=== PATIENT | female | born 1960 | race Caucasian/White ===

== ENCOUNTER → 2021-01-28 11:58 | Outpatient (CLI) | payer OTHER, MEDICAID, SELFPAY ==
[2021-01-28 12:32] LABS: Add Manual Diff / Slide Review NO; Basophils Absolute Auto 0 /uL (0-100); Basophils Percent Auto 0.8 % (0-2); Eosinophils Absolute Auto 100 /uL (0-450); Eosinophils Percent Auto 1.9 % (2-4); Hematocrit 41.1 % (36-46); Hemoglobin 13.9 g/dL (12.0-16.0); Lymphocytes Absolute Auto 1900 /uL (1100-4500); Lymphocytes Percent Auto 35.9 % (25-40); Mean Corpuscular HGB Conc 33.8 % (30-36); Mean Corpuscular Hemoglobin 32.5 PG (26-34); Monocytes Absolute Auto 300 /uL (0-900); Monocytes Percent Auto 6.4 % (3-14); Neutrophils Absolute Auto 2900 /uL (1500-7000); Platelet Count 226 X10^3/uL (150-400); Red Blood Cell Count 4.29 X10^6/uL (4.0-5.2); Red Cell Distribution Width 12.8 % (11.6-14.8); White Blood Cell Count 5.3 X10^3/uL (4.5-11.0)
[2021-01-28 13:05] LABS: Alanine Aminotransferase 19 IU/L (<35); Albumin 4.1 g/dL (3.5-5.0); Albumin Globulin Ratio 1.6 (1.0-2.8); Alkaline Phosphatase 82 U/L (38-126); Aspartate Aminotransferase 23 IU/L (14-36); BUN Creatinine Ratio 18.1 (6-22); Bilirubin Total 0.2 mg/dL (0.2-1.3); Blood Urea Nitrogen 13 mg/dL (7-17); Calcium 9.9 mg/dL (8.4-10.2); Carbon Dioxide 28 mmol/L (22-32); Chloride 104 mmol/L (98-107); Estimated Glomerular Filt Rate > 60.0 mL/min (>60); Globulin 2.5 g/dL (1.7-4.1); Glucose 90 mg/dL (70-100); HEMOLYSIS < 15 (0-50); Potassium 3.9 mmol/L (3.4-5.1); Sodium 137 mmol/L (137-145); Total Protein 6.6 g/dL (6.3-8.2)
[2021-01-28 17:39] LABS: Free T4, Direct Thyroxine 0.83 ng/dL (0.78-2.19)
[2021-01-28 17:53] LABS: Thyroid Stimulating Hormone 1.28 uIU/mL (0.47-4.68)
== END ==
PROVIDERS: PCP Registered Nurse; Referring Provider Registered Nurse; Visit Provider Registered Nurse
DX: F41.8 Other specified anxiety disorders (principal); R01.1 Cardiac murmur, unspecified; M79.7 Fibromyalgia
CPT/HCPCS: 36415; 80053; 84439; 84443; 85025

== ENCOUNTER → 2021-03-04 11:26 | Outpatient (CLI) | payer OTHER, MEDICAID, SELFPAY ==
[2021-03-04 13:00] LABS: Vitamin D 25 Hydroxy (D3) 45.4 ng/mL (30.0-100.0)
== END ==
PROVIDERS: PCP Registered Nurse; Referring Provider Registered Nurse; Visit Provider Registered Nurse
DX: Z79.899 Other long term (current) drug therapy (principal)
CPT/HCPCS: 36415; 82306

== ENCOUNTER 2021-05-03 10:15 | Emergency (ER) | payer OTHER, MEDICAID, SELFPAY ==
[2021-05-03] VITALS (9 sets, daily range): BP systolic 144–176; BP diastolic 67–79; PULSE 47–54; RESP 7–34; TEMP 36.2; O2SAT 98–99
--- NOTE | 2021-05-03 10:32 | DI.RAD.S_ITS ---
PROCEDURE: XR CHEST 1V INDICATIONS: chest pain TECHNIQUE: One view of the chest was acquired. COMPARISON: None. FINDINGS: Surgical changes and devices: None. Lungs and pleura: Lungs are clear. No pleural effusions or pneumothorax. Mediastinum: Mediastinal contours appear normal. Heart size is normal. Bones and chest wall: No suspicious bony lesions. Overlying soft tissues appear unremarkable. Surgical clips noted in the right axilla IMPRESSION: No acute cardiopulmonary findings Approved by: Nigel Guardado M.D. on 05/03/2021 at 10:25
--- NOTE | 2021-05-03 10:50 | DI.CT.S_ITS ---
PROCEDURE: CT HEAD/BRAIN WO CON INDICATIONS: SMART, confusion, occ vision loss, remote h/o breast CA TECHNIQUE: Noncontrast 4.5 mm thick angled axial sections acquired from the foramen magnum to the vertex, with coronal and sagittal reformats. For radiation dose reduction, the following was used: automated exposure control, adjustment of mA and/or kV according to patient size. COMPARISON: None. FINDINGS: Image quality: Excellent. CSF spaces: Basal cisterns are patent. No extra-axial fluid collections. Ventricles are normal in size and shape. Brain: No midline shift. No intracranial masses or hemorrhage. Orourke-white matter interface is normal. Skull and face: Calvarium and visualized facial bones are intact, without suspicious lesions. Sinuses: Visualized sinuses and mastoids are clear. IMPRESSION: Unremarkable CT brain. No intracranial hemorrhage or mass effect Approved by: Nigel Guardado M.D. on 05/03/2021 at 9:56
[2021-05-03 11:17] LABS: Add Manual Diff / Slide Review NO; Basophils Absolute Auto 0 /uL (0-100); Basophils Percent Auto 0.8 % (0-2); Eosinophils Absolute Auto 100 /uL (0-450); Hematocrit 42.9 % (36-46); Hemoglobin 14.4 g/dL (12.0-16.0); Lymphocytes Absolute Auto 2100 /uL (1100-4500); Lymphocytes Percent Auto 38.2 % (25-40); Mean Corpuscular HGB Conc 33.5 % (30-36); Mean Corpuscular Hemoglobin 31.8 PG (26-34); Mean Corpuscular Volume 94.8 fL (80-100); Monocytes Absolute Auto 300 /uL (0-900); Monocytes Percent Auto 5.2 % (3-14); Neutrophils Absolute Auto 2900 /uL (1500-7000); Neutrophils Percent Auto 53.8 % (50-75); Platelet Count 199 X10^3/uL (150-400); Red Blood Cell Count 4.53 X10^6/uL (4.0-5.2); Red Cell Distribution Width 13.5 % (11.6-14.8); White Blood Cell Count 5.4 X10^3/uL (4.5-11.0)
--- NOTE | 2021-05-03 11:22 | ED.NEUROSD ---
HPI - Neuro Symptoms/Deficit General Chief Complaint: Neuro Symptoms/Deficit Stated Complaint: confusion/headache/nausea/1 week Time Seen by Provider: 05/03/21 11:22 Source: patient Mode of arrival: Wheelchair Limitations: no limitations History of Present Illness HPI Narrative: 60-year-old female who is here for evaluation of multiple symptoms to include occasional confusion, headache, nausea, abdominal pain, periods of a low heart rate, periods of a high heart rate. She states the symptoms have been going on for the past 2 weeks. She states she did mention anything about them the 1st week because she thought that they would improve on their own. She did go to an outside facility yesterday his she was having some chest discomfort. I was able to review those notes and she was discharged home after a cardiac workup. She states she is feeling very fatigued. Has not tried anything for her symptoms prior to arrival. On Anticoagulants: No (ASA 81 mg daily) Related Data Home Medications Medication Instructions Recorded Confirmed atorvastatin 80 mg tablet 80 mg PO BEDTIME 01/28/21 03/04/21 cholecalciferol (vitamin D3) 1,250 1,250 mcg PO QWEEK 01/28/21 03/04/21 mcg (50,000 unit) capsule losartan 50 mg tablet 50 mg PO BID 01/28/21 03/04/21 Previous Rx's Medication Instructions Recorded atenolol 50 mg tablet 50 mg PO DAILY #90 tab 03/03/21 duloxetine 20 mg capsule,delayed 20 mg PO BID #180 cap 03/03/21 release trazodone 100 mg tablet 200 mg PO BEDTIME 90 Days #180 tab 03/03/21 hydrochlorothiazide 25 mg tablet 25 mg PO DAILY #90 tab 04/07/21 bupropion HCl 150 mg tablet,12 hr 150 mg PO QAM #90 ea 04/08/21 sustained-release gabapentin 300 mg capsule 300 mg PO DAILY #30 cap 04/23/21 Allergies Allergy/AdvReac Type Severity Reaction Status Date / Time aspartame Allergy Severe numbness Verified 05/03/21 10:31 in mouth & throat from nutrisweet codeine Allergy Severe HIVES Verified 05/03/21 10:31 ergotamine [From Ergostat] Allergy Unknown Verified 05/03/21 10:31 oxycodone Allergy Unknown Verified 05/03/21 10:31 Review of Systems Constitutional Constitutional: Reports fatigue, Reports headache(s), Reports lethargy and Reports malaise Eyes Eyes: Reports system reviewed and no additional complaints, except as documented ENT Ears, Nose, Mouth, and Throat: Reports headache(s) Cardiovascular Cardiovascular: Reports chest pain and Reports dyspnea Respiratory Respiratory: Reports dyspnea Gastrointestinal Gastrointestinal: Reports abdominal pain, Reports nausea and Reports vomiting Genitourinary Genitourinary: Reports system reviewed and no additional complaints, except as documented Musculoskeletal Musculoskeletal: Reports as per HPI Integumentary/Breasts Skin/Breast: Reports system reviewed and no additional complaints, except as documented Neurologic Neurologic: Reports headache(s) Psychiatric Comments: Anxiety/fatigued Endocrine Endocrine: Reports fatigue Hematologic/Lymphatic On Anticoagulants: No (ASA 81 mg daily) Allergic/Immunologic Allergic/Immunologic: Reports system reviewed and no additional complaints, except as documented Patient History Medical History Anxiety with depression Carpal tunnel syndrome (~1995) Cervical cancer screening Chicken pox (~1968) Chronic back pain Chronic pain syndrome (09/24/15) Colon polyps Cyst Heart murmur Hemorrhoid History of bipolar disorder History of breast cancer (~2005) Hypertension (~1989) Kidney stones (~2014) Medication management Menopause (~1997) PTSD (post-traumatic stress disorder) Right shoulder pain (~2020) Skin cyst Stroke Substance abuse Vertigo Surgical History Anesthesia H/O right wrist surgery (~1984) History of back surgery (~2018) History of colonoscopy (~2020) History of coronary artery stent placement (~2019) History of hemorrhoidectomy (~1989) History of placement of ear tubes Family History Mother Cancer Diabetes mellitus History of heart disease Brother Diabetes mellitus Hyperlipidemia Hypertension Pacemaker Sister Diabetes mellitus Hypertension Sister Hyperlipidemia Liver disease Autoimmune disease Grandfather Cancer Grandfather Alzheimer's disease Grandmother Alzheimer's disease Social History Smoking Status: Current every day smoker Smoking Status: Current every day smoker tobacco type: cigarettes alcohol intake frequency: 0-2 drinks per day Substance Use Type: marijuana Exam Initial Vital Signs Initial Vital Signs: Vital Signs Temperature 97.2 F L 05/03/21 10:25 Pulse Rate 54 L 05/03/21 10:25 Respiratory Rate 18 05/03/21 10:25 Blood Pressure 146/79 H 05/03/21 10:25 Pulse Oximetry 99 05/03/21 10:25 Const General: cooperative, comfortable and well developed [facility] Head: normal to inspection and normocephalic Eyes General: appearance normal, both eyes and all related structures Resp Effort & Inspection: normal respiratory effort Auscultation: clear to auscultation bilaterally Cardio Rate: regular rate Rhythm: regular rhythm GI Inspection: normal to inspection Palpation: soft Skin General: no rashes or lesions noted Neuro General: patient alert, patient awake, patient oriented x3 and moves all extremities Cognition: normal cognition Speech: speech normal Gait: normal gait Motor: muscle tone normal throughout Extrem General: normal to inspection and capillary refill normal Psych Appearance: grossly normal and well kempt Scores GCS [place] coma scale eye opening: Spontaneous Loi coma scale verbal response: Orientated Loi coma scale motor response: Obey commands Loi coma scale total score: 15 Course Orders Ordered: ED Orders 05/03/21 10:32 XR chest 1V Stat EKG-12 Lead Stat 05/03/21 10:50 CT head/brain wo con Stat 05/03/21 11:07 Complete Blood Count AUTO DIFF Stat Comprehensive Metabolic Panel Stat Lipase Stat Magnesium Stat TSH w/ Reflex to FT4 Stat Troponin & CK Cardiac Panel Stat Vital Signs Vital signs: Vital Signs - 8 hr 05/03/21 10:25 05/03/21 10:53 05/03/21 10:54 Temperature 97.2 F L Pulse Rate 54 L 48 L 47 L Respiratory Rate 18 12 7 L Blood Pressure 146/79 H 163/77 H Pulse Oximetry 99 99 99 05/03/21 11:00 05/03/21 11:18 05/03/21 11:30 Temperature Pulse Rate 49 L 52 L 53 L Respiratory Rate 13 34 H 25 H Blood Pressure 176/73 H Pulse Oximetry 98 98 99 05/03/21 11:31 Temperature Pulse Rate 54 L Respiratory Rate 21 Blood Pressure 159/74 H Pulse Oximetry 99 MDM - Neuro Symptoms/Deficit Medical Records Attestation: I reviewed the patient's medical records. Lab Data Attestation: I reviewed the patient's lab results. Result diagrams: 05/03/21 11:07 05/03/21 11:07 Labs: Lab Results 05/03/21 05/03/21 05/03/21 Range/Units 11:07 11:07 11:07 WBC 5.4 (4.5-11.0) X10^3/uL RBC 4.53 (4.0-5.2) X10^6/uL Hgb 14.4 (12.0-16.0) g/dL Hct 42.9 (36-46) % MCV 94.8 (80-100) fL MCH 31.8 (26-34) PG MCHC 33.5 (30-36) % RDW 13.5 (11.6-14.8) % Plt Count 199 (150-400) X10^3/uL Neut % (Auto) 53.8 (50-75) % Lymph % (Auto) 38.2 (25-40) % [place] % (Auto) 5.2 (3-14) % Eos % (Auto) 2.0 (2-4) % Baso % (Auto) 0.8 (0-2) % Neut # (Auto) 2900 (7263-7218) /uL Lymph # (Auto) 2100 (6452-5133) /uL [place] # (Auto) 300 (0-900) /uL Eos # (Auto) 100 (0-450) /uL Baso # (Auto) 0 (0-100) /uL Sodium 139 (137-145) mmol/L Potassium 3.7 (3.4-5.1) mmol/L Chloride 108 H (98-107) mmol/L Carbon Dioxide 27 (22-32) mmol/L BUN 14 (7-17) mg/dL Creatinine 0.88 (0.52-1.04) mg/dL Estimated GFR > 60.0 (>60) mL/min BUN/Creatinine Ratio 15.9 (6-22) Glucose 86 (70-100) mg/dL Calcium 10.1 (8.4-10.2) mg/dL Magnesium 1.9 (1.6-2.3) mg/dL Total Bilirubin 0.4 (0.2-1.3) mg/dL AST 30 (14-36) IU/L ALT 24 (<35) IU/L Alkaline Phosphatase 70 (38-126) U/L Total Creatine Kinase 68 (30-135) U/L CK-MB (CK-2) TNP CK-MB (CK-2) Rel Index TNP Troponin I < 0.012 (0.01-0.034) ng/mL Total Protein 7.0 (6.3-8.2) g/dL Albumin 4.1 (3.5-5.0) g/dL Globulin 2.9 (1.7-4.1) g/dL Albumin/Globulin Ratio 1.4 (1.0-2.8) Lipase 119 (23-300) U/L TSH 1.33 (0.47-4.68) uIU/mL Imaging Data CT scan - head: Radiologist's Impression: [address] [id number] Scan ReportSigned Patient: Prem Rios AMR#: [id number]: 1960cct:[id number]/Sex: 60 / FDate of Service: 05/03/21Loc: EDAccession Number: [id number] Procedure: CT head/brain wo con Ordering Provider: Julien Rush D.O. PROCEDURE: CT HEAD/BRAIN WO CON INDICATIONS: SMART, confusion, occ vision loss, remote h/o breast CA TECHNIQUE: Noncontrast 4.5 mm thick angled axial sections acquired from the foramen magnum to the vertex, with coronal and sagittal reformats. For radiation dose reduction, the following was used: automated exposure control, adjustment of mA and/or kV according to patient size. COMPARISON: None. FINDINGS: Image quality: Excellent. CSF spaces: Basal cisterns are patent. No extra-axial fluid collections. Ventricles are normal in size and shape. Brain: No midline shift. No intracranial masses or hemorrhage. Orourke-white matter interface is normal. Skull and face: Calvarium and visualized facial bones are intact, without suspicious lesions. Sinuses: Visualized sinuses and mastoids are clear. IMPRESSION: Unremarkable CT brain. No intracranial hemorrhage or mass effect Approved by: Nigel Guardado M.D. on 05/03/2021 at 9:56 Chest x-ray: Radiologist's Impression: [address] [id number] ReportSigned Patient: Prem Rios AMR#: [id number]: 1960cct:[id number]/Sex: 60 / FDate of Service: 05/03/21Loc: EDAccession Number: [id number] Procedure: XR chest 1V Ordering Provider: Julien Rush D.O. PROCEDURE: XR CHEST 1V INDICATIONS: chest pain TECHNIQUE: One view of the chest was acquired. COMPARISON: None. FINDINGS: Surgical changes and devices: None. Lungs and pleura: Lungs are clear. No pleural effusions or pneumothorax. Mediastinum: Mediastinal contours appear normal. Heart size is normal. Bones and chest wall: No suspicious bony lesions. Overlying soft tissues appear unremarkable. Surgical clips noted in the right axilla IMPRESSION: No acute cardiopulmonary findings Approved by: Nigel Guardado M.D. on 05/03/2021 at 10:25 ECG Data Attestation: I personally reviewed and interpreted this ECG as follows: Prior ECG tracings: available for review Interpretation: Sinus bradycardia Ventricular rate of 51 Normal axis Normal QRS Normal QTC Right bundle branch block No ST T wave changes MDM Narrative Medical decision making narrative: Workup here in the emergency department is very reassuring. I was able to review the notes from yesterday and that was reassuring as well. I do suspect that this is either a mental health/anxiety issue or potentially a medication issue. She is on multiple medications that could potentially causing her to be fatigued. I informed her that she needed to contact her primary doctor for follow-up in to go over her medications. She was given return precautions. She expressed understanding and agreement. Discharge Plan Departure Patient Disposition: Home Clinical Impression: Fatigue Instructions: DI for Fatigue Activity Restrictions/Additional Instructions: I do recommend that you contact your primary doctor for follow-up in to discuss potentially changing any medications that may be causing your symptoms. Return to the emergency department for any new or worsening symptoms Prescriptions: No Action trazodone 100 mg tablet 200 mg PO BEDTIME 90 Days Qty: 180 RF: 0 duloxetine 20 mg capsule,delayed release(DR/EC) 20 mg PO BID Qty: 180 RF: 0 atenolol 50 mg tablet 50 mg PO DAILY Qty: 90 RF: 0 hydrochlorothiazide 25 mg tablet 25 mg PO DAILY Qty: 90 RF: 2 bupropion HCl 150 mg tablet sustained-release 12 hr 150 mg PO QAM Qty: 90 RF: 2 gabapentin 300 mg capsule 300 mg PO DAILY Qty: 30 RF: 2 atorvastatin 80 mg tablet 80 mg PO BEDTIME RF: 0 losartan 50 mg tablet 50 mg PO BID RF: 0 cholecalciferol (vitamin D3) 1,250 mcg (50,000 unit) capsule 1,250 mcg PO QWEEK RF: 0 Referrals: Nereyda Fernandez ARNP [Primary Care Provider] -
[2021-05-03 11:32] LABS: Alanine Aminotransferase 24 IU/L (<35); Albumin 4.1 g/dL (3.5-5.0); Albumin Globulin Ratio 1.4 (1.0-2.8); Alkaline Phosphatase 70 U/L (38-126); Aspartate Aminotransferase 30 IU/L (14-36); BUN Creatinine Ratio 15.9 (6-22); Bilirubin Total 0.4 mg/dL (0.2-1.3); Blood Urea Nitrogen 14 mg/dL (7-17); Calcium 10.1 mg/dL (8.4-10.2); Carbon Dioxide 27 mmol/L (22-32); Chloride 108 mmol/L (98-107); Creatine Kinase 68 U/L (30-135); Estimated Glomerular Filt Rate > 60.0 mL/min (>60); Globulin 2.9 g/dL (1.7-4.1); Glucose 86 mg/dL (70-100); HEMOLYSIS 22 (0-50); Lipase 119 U/L (23-300); Magnesium 1.9 mg/dL (1.6-2.3); Potassium 3.7 mmol/L (3.4-5.1); Sodium 139 mmol/L (137-145)
[2021-05-03 11:42] LABS: Troponin I < 0.012 ng/mL (0.01-0.034)
[2021-05-03 12:12] LABS: TSH w/ Reflex to FT4 1.33 uIU/mL (0.47-4.68)
[2021-05-03] MEDS: KETOROLAC 30 MG/ML VIAL IV (12:39)
== END 2021-05-03 13:12 | disposition home or self-care (01) ==
PROVIDERS: Emergency Provider Emergency Medicine; PCP Registered Nurse
DX: R53.83 Other fatigue (principal); R07.9 Chest pain, unspecified; R06.00 Dyspnea, unspecified; R51.9 Headache, unspecified
CPT/HCPCS: 36415; 70450; 71045; 80053; 82550; 83690; 83735; 84443; 84484; 85025; 93005; 93010; 96374; 99284; J1885

== ENCOUNTER → 2021-06-25 12:28 | Outpatient (CLI) | payer OTHER, MEDICAID, SELFPAY ==
--- NOTE | 2021-06-25 12:29 | DI.MG.S_ITS ---
BILATERAL DIGITAL DIAGNOSTIC MAMMOGRAM 3D/2D: 06/25/2021 CLINICAL: Diffuse right breast pain. History of right breast cancer. Comparison is made to exams dated: 01/01/2019 mammogram and 12/21/2016 mammogram - [facility]. There are scattered fibroglandular elements in both breasts. There are stable benign post operative findings in the right breast. No significant masses, calcifications, or other findings are seen in either breast. IMPRESSION: BENIGN There is no abnormality seen in the left breast to correspond with the diffuse pain, however, clinical followup is recommended. There is no mammographic evidence of malignancy. A 1 year screening mammogram is recommended. This exam was interpreted at Station ID: [id number]. NOTE: For mammograms, a report in lay terms will be sent to the patient. Approximately 15% of breast malignancies will not be visualized mammographically. In the management of a palpable breast mass, a negative mammogram must not discourage biopsy of a clinically suspicious lesion. Electronically Signed By: Xavier keller/blaine:06/25/2021 13:21:46 letter sent: Clinical Evaluation ACR BI-RADS Category 2: Benign Finding(s) 3342F
== END ==
PROVIDERS: PCP Registered Nurse; Referring Provider Registered Nurse; Visit Provider Registered Nurse
DX: N64.4 Mastodynia (principal); Z85.3 Personal history of malignant neoplasm of breast
CPT/HCPCS: 77066; G0279

== ENCOUNTER → 2021-12-22 11:29 | Outpatient (CLI) | payer OTHER, MEDICAID, SELFPAY ==
--- NOTE | 2021-12-22 11:31 | DI.RAD.S_ITS ---
PROCEDURE: XR SHOULDER LT MIN 2V INDICATIONS: neck and L shoulder pain, raadicular with numbness also down TECHNIQUE: 3 views of the shoulder were acquired. COMPARISON: None. FINDINGS: Bones: No acute fracture or dislocation. Moderate degenerative changes of the glenohumeral joint with marginal osteophytes over the inferomedial margin of the left humeral head. Corticated ossifications noted in the subacromial space underlying the level of the distal clavicle. Largest measures approximately 1.1 cm in size. Minimal degenerative changes of the left acromioclavicular joint. Soft tissues: No suspicious soft tissue calcifications. Visualized portions of the lungs are clear. IMPRESSION: 1. Moderate degenerative changes of the left glenohumeral joint. 2. Chronic appearing, corticated ossifications noted in the subacromial space likely representing sequela of chronic calcific rotator cuff tendinopathy. 3. Minimal degenerative changes of the left acromioclavicular joint. 4. No acute osseous abnormalities identified. Dictated by: Zain Velazquez M.D. on 12/22/2021 at 12:26 Approved by: Zain Velaqzuez M.D. on 12/22/2021 at 12:29
--- NOTE | 2021-12-22 11:31 | DI.RAD.S_ITS ---
PROCEDURE: XR CERVICAL SPINE 2V OR 3V INDICATIONS: neck pain TECHNIQUE: 3 view(s) of the cervical spine were acquired. COMPARISON: None. FINDINGS: Bones: No fractures or dislocations to the T1 level. Loss of normal cervical lordosis. Mild grade 1 anterolisthesis of C2 on C3 and C3 on C4. Disc space narrowing and endplate osteophyte formation at C4-C5, C5-C6, and C6-C7. Facet hypertrophy throughout the mid and lower cervical spine. The lateral masses of C1 appear intact on the odontoid view. No suspicious bony lesions. Soft tissues: No prevertebral soft tissue swelling. IMPRESSION: 1. Multilevel degenerative disc and facet disease. 2. No acute fracture. No osseous lesion. If symptoms and/or clinical suspicion for pathology persist, further assessment with repeat, or advanced imaging (e.g., CT, MRI, or bone scan) may be helpful for further assessment. Dictated by: Delmi Mendez M.D. on 12/22/2021 at 13:59 Approved by: Delmi Mendez M.D. on 12/22/2021 at 14:00
== END ==
PROVIDERS: PCP Family Medicine; Referring Provider Family Medicine; Visit Provider Family Medicine
DX: M50.321 Other cervical disc degeneration at C4-C5 level (principal); M25.512 Pain in left shoulder; G89.29 Other chronic pain
CPT/HCPCS: 72040; 73030

== ENCOUNTER → 2022-02-10 10:26 | Outpatient (CLI) | payer OTHER, MEDICAID, SELFPAY ==
--- NOTE | 2022-02-10 10:28 | DI.MRI.S_ITS ---
PROCEDURE: MR CERVICAL SPINE WO CON INDICATIONS: continued neck pain TECHNIQUE: Noncontrast sagittal T1 spin echo and T2 fast spin echo, sagittal STIR, foraminal oblique sagittal T2 fast spin echo, and axial gradient echo or T2 fast spin echo through the cervical spine. COMPARISON: [facility], CR, XR CERVICAL SPINE 2V OR 3V, 12/22/2021, 11:24. FINDINGS: Image quality: This examination is limited by involuntary motion artifact. Alignment and Curvature: There is straightening of the normal cervical lordosis. No focal AP alignment abnormality is seen. Bone Marrow: Marrow demonstrates normal overall signal. Spinal Cord: Visualized spinal cord has normal size and signal. No cerebellar tonsillar herniation. Paraspinous Soft Tissues: No paravertebral masses. Prevertebral soft tissues are normal in thickness. C2-C3: The disc height is well-preserved. Loss of disc signal is seen at this level. A mild degree of generalized disc osteophyte complex is seen. There is moderate left-sided and minimal right-sided facet hypertrophy. There is moderate to severe left-sided and no significant right-sided neural foraminal narrowing. Minimal central canal narrowing is seen. C3-C4: Mild loss of disc height is seen. Loss of disc signal is seen. Moderate generalized disc osteophyte complex is seen. There is moderate right-sided and [id number] left-sided facet hypertrophy. There is moderate to severe bilateral neural narrowing seen, right worse than left. Mild to moderate central canal narrowing is seen, with a mild degree of mass effect upon the ventral spinal cord. C4-C5: Mild loss of disc height is seen. Loss of disc signal is seen. Moderate generalized disc osteophyte complex is seen. Uncovertebral joint hypertrophy is seen at this level. There is a central disc osteophyte protrusion seen. At least moderate facet hypertrophy is seen at this level. There is moderate to severe left-sided and at least moderate right-sided neural narrowing. Moderate central canal narrowing is seen. There is associated mass effect upon the ventral spinal cord. C5-C6: Moderate loss of disc height is seen. Loss of disc signal is seen. At least moderate disc osteophyte complex is seen, which is eccentric to the left side. Uncovertebral joint hypertrophy is seen at this level. Moderate facet joint hypertrophy is seen. There is moderate to severe left-sided and at least moderate right-sided neural foraminal narrowing seen. Moderate central canal narrowing is seen. There is associated mass effect upon the ventral spinal cord. C6-C7: Moderate loss of disc height is seen. Loss of disc signal is seen. Moderate generalized disc osteophyte complex is seen. A central disc osteophyte protrusion is seen. Mild to moderate facet hypertrophy is seen. There is moderate to severe bilateral neural foraminal narrowing. Moderate central canal narrowing is seen. C7-T1: Moderate loss of disc height is seen. Loss of disc signal is seen. Moderate generalized disc osteophyte complex is seen. Moderate facet joint hypertrophy is seen. There is moderate to severe bilateral neural foraminal narrowing seen. Mild to moderate central canal narrowing is seen. IMPRESSION: Multiple levels of cervical spine degenerative change are seen, which are worst inferiorly. Dictated by: Parth Ruelas M.D. on 02/10/2022 at 13:10 Approved by: Parth Ruelas M.D. on 02/10/2022 at 13:17
--- NOTE | 2022-02-10 10:28 | DI.MRI.S_ITS ---
PROCEDURE: MR SHOULDER LT WO CON INDICATIONS: continued left shoulder pain and numbness TECHNIQUE: Noncontrast oblique coronal T2 fast spin echo with fat saturation, oblique sagittal T1 spin echo and T2 fast spin echo with fat saturation, axial T1 spin echo and T2 fast spin echo with fat saturation through the shoulder. COMPARISON: None. FINDINGS: Image quality: Excellent. Rotator cuff: Tendinosis and low to moderate grade articular and bursal surface partial thickness tear involving distal supraspinatus is seen extending to musculotendinous junction. No full-thickness rotator cuff tendon rupture. Distal infraspinatus and subscapularis tendinosis is seen. Sagittal images demonstrate no significant muscle atrophy. Bones and bursae: No bone marrow contusions or fractures. Mild to moderate acromioclavicular joint osteoarthritic changes are seen with downward osteophyte formation depressing the musculotendinous junction of supraspinatus. Moderate to severe glenohumeral joint osteoarthritic changes are seen with joint space narrowing, subchondral sclerosis and prominent inferior marginal osteophyte formation. There is moderate amount of subacromial subdeltoid bursal fluid with suggestion of loose body in medial aspect of subacromial subdeltoid bursa inferior to the distal clavicle. Capsule and soft tissues: Signal abnormality and contour irregularity involving superior anterior labrum at 12 to 1 o'clock position is seen. Similar signal abnormality and contour irregularity involving anterior inferior glenoid at 4-6 o'clock is also noted. The long head of the biceps tendon demonstrates normal location and morphology. The rotator interval appears normal, without fibrosis. The coracohumeral ligament is normal in thickness. IMPRESSION: 1. Tendinosis and low to moderate grade articular and bursal surface partial thickness tear involving distal supraspinatus extending to musculotendinous junction. No full-thickness rotator cuff tendon rupture. Distal infraspinatus and subscapularis tendinosis. 2. Moderate to severe glenohumeral joint osteoarthritis and moderate acromioclavicular joint osteoarthritis. No fracture or dislocation. Moderate subacromial subdeltoid bursal fluid with intra-articular loose body measures approximately 9 mm in size. 3. Suggestion of superior anterior labral tear at 12 to 1 o'clock position and anterior-inferior labral tear at 4 to 6 o'clock position. Dictated by: Darren Harrison M.D. on 02/10/2022 at 12:58 Approved by: Darren Harrison M.D. on 02/10/2022 at 13:28
== END ==
PROVIDERS: PCP Family Medicine; Referring Provider Family Medicine; Visit Provider Family Medicine
DX: M75.112 Incomplete rotator cuff tear or rupture of left shoulder, not specified as traumatic (principal); M19.012 Primary osteoarthritis, left shoulder; M47.812 Spondylosis without myelopathy or radiculopathy, cervical region; M54.2 Cervicalgia; M25.512 Pain in left shoulder; G89.29 Other chronic pain
CPT/HCPCS: 72141; 73221

== ENCOUNTER → 2022-03-30 12:03 | Outpatient (CLI) | payer OTHER, MEDICAID, SELFPAY ==
--- NOTE | 2022-03-30 12:04 | DI.US.S_ITS ---
ULTRASOUND OF LEFT BREAST: 03/30/2022 CLINICAL: Focal left breast pain/discoloration. Comparison is made to exams dated: 03/30/2022 mammogram, 06/25/2021 mammogram - [facility], 01/01/2019 mammogram, and 12/21/2016 mammogram - [facility]. Color flow, real-time, and Doppler ultrasound of the left breast were performed. No abnormality which corresponds with the mammographic abnormality is seen. IMPRESSION: NEGATIVE There is no sonographic evidence of malignancy. There are no abnormalities seen in the left breast to correspond with the areas of clinical concern at 10, 11, and 12 o'clock, however, clinical followup is recommended. Return to annual mammogram screening schedule is recommended. Future imaging is recommended as follows: 06/26/2022 screening mammogram. This exam was interpreted at Station ID: [id number]. Electronically Signed By: Darnell Silverio acr/:03/31/2022 21:05:04 letter sent: Clinical Evaluation Ultrasound BI-RADS: 1 Negative
--- NOTE | 2022-03-30 12:04 | DI.MG.S_ITS ---
BILATERAL DIGITAL DIAGNOSTIC MAMMOGRAM 3D/2D POST LUMPECTOMY: 03/30/2022 CLINICAL: Left breast enlargement. Comparison is made to exams dated: 06/25/2021 mammogram - [facility], 01/01/2019 mammogram, and 12/21/2016 mammogram - [facility]. There are scattered fibroglandular elements in both breasts. There are benign post operative findings in the right breast. No significant masses, calcifications, or other findings are seen in either breast. IMPRESSION: INCOMPLETE: NEEDS ADDITIONAL IMAGING EVALUATION There are no abnormalities seen in the left breast to correspond with the areas of clinical concern at 10 and 11 o'clock, however, ultrasound is recommended. Future imaging is recommended as follows: 06/26/2022 screening mammogram. This exam was interpreted at Station ID: [id number]. NOTE: For mammograms, a report in lay terms will be sent to the patient. Approximately 15% of breast malignancies will not be visualized mammographically. In the management of a palpable breast mass, a negative mammogram must not discourage biopsy of a clinically suspicious lesion. Electronically Signed By: Darnell Silverio acr/:03/30/2022 14:00:03 ACR BI-RADS Category 0: Incomplete [id number]
== END ==
PROVIDERS: PCP Family Medicine; Referring Provider Family Medicine; Visit Provider Family Medicine
DX: N63.20 Unspecified lump in the left breast, unspecified quadrant (principal); N64.4 Mastodynia; Z85.3 Personal history of malignant neoplasm of breast
CPT/HCPCS: 76642; 77066; G0279

== ENCOUNTER → 2022-04-18 10:31 | Outpatient (CLI) | payer OTHER, MEDICAID, SELFPAY ==
[2022-04-18 11:07] LABS: COVID19 -Nasal RAPID Negative (Negative)
== END ==
PROVIDERS: PCP Family Medicine; Visit Provider Surgery
DX: Z20.822 Contact with and (suspected) exposure to COVID-19 (principal); Z01.812 Encounter for preprocedural laboratory examination
CPT/HCPCS: 87635; C9803

== ENCOUNTER 2022-04-19 13:08 | Day surgery (SDC) | payer OTHER, MEDICAID, SELFPAY ==
--- NOTE | 2022-04-19 | PATH_ITS ---
[facility] Accession Number: [id number] . 01 Material submitted: . PART A: colon - TRANSVERSE COLON POLYPS PART B: rectum - RECTAL COLON POLYP . 01 Clinical history: . SCREENING COLONOSCOPY . 01 Diagnosis: A. Transverse Colon Polyps, Biopsy: Tubular adenomas. Hyperplastic polyp. . B. Rectal Colon Polyp, Biopsy: Tubular adenoma. MRV 04/21/2022 1225 Local . 01 Electronically signed: . Shayy Henriquez MD, Pathologist NPI- [id number] . 01 Gross description: . Part A: TRANSVERSE COLON POLYPS: Received in formalin are 4 fragment(s) of dykes, soft tissue measuring 0.4 x 0.2 x 0.1 cm to 0.2 x 0.1 x 0.1 cm submitted entirely in 1 cassette(s) Part B: RECTAL COLON POLYP: Received in formalin is 1 fragment(s) of dykes, soft tissue measuring 0.5 x 0.2 x 0.2 cm submitted entirely in 1 cassette(s) /CPE 04/20/2022 0649 Local . 01 Pathologist provided ICD-10: D12.3, D12.8 . 01 CPT . 017428, 274365 Specimen Comment: A courtesy copy of this report has been sent to [phone] Performed at: 01 [facility] [address] [place] [address], [place], [place] [id number] MD Jovi Kulkarni MD Phone: [phone]
[2022-04-19 13:26] VITALS: BMI 36.0
[2022-04-19 13:36] VITALS: BP 96/68; PULSE 58; RESP 20; TEMP 35.9; O2SAT 97
[2022-04-19] MEDS: LACTATED RINGERS 1,000 ML 200 ML IV (13:49)
--- NOTE | 2022-04-19 14:26 | P.HP_ITS ---
History of Present Illness History of Present Illness Date Patient Seen: 04/19/22 Time Patient Seen: 14:26 Chief complaint: SCREENING COLONOSCOPY Narrative: The patient presents for colorectal screening. She has a personal history of colonic polyps. She believes her last colonoscopy was several years ago and that there were numerous polyps. Her mother has a history of colon his On further history denies any recent gastrointestinal symptoms. No nausea, vomiti ng, abdominal pain, loss of appetite, unexplained weight loss, change in bowel habits, diarrhea, constipation, melena, hematochezia, or bright red blood per rectum. Patient History Medical History Adhesive capsulitis Anxiety with depression Breast pain Carpal tunnel syndrome (~1995) Cervical cancer screening Chicken pox (~1968) Chronic back pain Chronic left shoulder pain Chronic pain syndrome (09/24/15) Colon polyps Cutaneous candidiasis Cyst Heart murmur Hemorrhoid History of bipolar disorder History of breast cancer (~2005) Hypertension (~1989) Kidney stones (~2014) Medication management Menopause (~1997) PTSD (post-traumatic stress disorder) Right shoulder pain (~2020) Rotator cuff tear Skin cyst Stroke Substance abuse Vertigo Surgical History Anesthesia H/O right wrist surgery (~1984) History of back surgery (~2018) History of colonoscopy (~2020) History of coronary artery stent placement (~2019) History of hemorrhoidectomy (~1989) History of placement of ear tubes Family & Social History Family History Mother Cancer Diabetes mellitus History of heart disease Brother Diabetes mellitus Hyperlipidemia Hypertension Pacemaker Sister Diabetes mellitus Hypertension Sister Hyperlipidemia Liver disease Autoimmune disease Grandfather Cancer Grandfather Alzheimer's disease Grandmother Alzheimer's disease Social History: household members children Tobacco & Substance use: Tobacco type e-cigarettes,cannabis/marijuana Smoking Status Current every day smoker alcohol intake former alcohol intake frequency 0-2 drinks per day Substance Use Type marijuana Meds Home Medications and Allergies Home Medications Medication Instructions Recorded Confirmed Type atorvastatin 80 mg tablet 80 mg PO BEDTIME 01/28/21 04/19/22 History losartan 50 mg tablet 50 mg PO BID 01/28/21 04/19/22 History bupropion HCl 150 mg tablet,12 hr 150 mg PO DAILY #60 ea 06/29/21 04/19/22 Rx sustained-release (Wellbutrin SR) hydrochlorothiazide 25 mg tablet 25 mg PO DAILY #60 tabs 06/29/21 04/19/22 Rx trazodone 100 mg tablet See Rx Instructions .Route 10/18/21 03/15/22 Rx .COMPLEX #180 tabs duloxetine 20 mg capsule,delayed 20 mg PO BID #120 caps 12/09/21 04/19/22 Rx release gabapentin 300 mg capsule See Rx Instructions .Route 02/16/22 04/19/22 Rx .COMPLEX #180 caps atenolol 50 mg tablet See Rx Instructions .Route 03/16/22 04/19/22 Rx .COMPLEX #90 tabs cyclobenzaprine 10 mg tablet See Rx Instructions .Route 04/12/22 04/19/22 Rx .COMPLEX #30 tabs hydrocodone 10 mg-acetaminophen 1 tab PO BID PRN severe pain #30 04/14/22 04/19/22 Rx 325 mg tablet tabs Allergies Allergy/AdvReac Type Severity Reaction Status Date / Time aspartame Allergy Severe numbness Verified 04/19/22 13:20 in mouth & throat from nutrisweet codeine Allergy Severe HIVES Verified 04/19/22 13:20 ergotamine [From Ergostat] Allergy Unknown Verified 04/19/22 13:20 oxycodone Allergy Unknown Verified 04/19/22 13:20 meloxicam AdvReac Severe palpitations/lips Verified 04/19/22 13:20 and fingers numb Exam Vital Signs (past 8 hours): - 04/19/22 13:36 Temperature 96.7 F L Pulse Rate 58 L Respiratory Rate 20 Blood Pressure 96/68 Pulse Oximetry 97 Oxygen Delivery Method Room Air Oxygen Delivery Method Room Air Narrative Exam Narrative: General oriented no acute distress Chest nonlabored respiration Extremities warm well perfused Assessment & Plan Assessment & Plan narrative: The patient requires colorectal screening and colonoscopy is recommended. Technical details were discussed. Risks, benefits, alternatives explained. Risks including but not limited to myocardial infarction, aspiration, bleeding, pain, missed lesion, incomplete examination, need for further radiographic studies, colonic perforation, and need for major abdominal surgery were discussed. All questions were answered to their satisfaction, and they are in agreement with this plan. Time Spent With Patient Critical Care time: I spent a total of [] minutes of critical care time on this patient's care today; this time is exclusive of procedural time.
[2022-04-19] MEDS: fentaNYL 250 MCG/5 ML INJ 200 MCG IV (14:43)
[2022-04-19] MEDS: MIDAZOLAM 5 MG/5 ML VIAL 8 MG IV (14:43)
--- NOTE | 2022-04-19 15:03 | P.OP.COLON_ITS ---
Operative Date/Time/Diagnoses Date of procedure: 04/19/22 Time of procedure: 15:03 Pre-op diagnosis: Personal history of colonic polyps Post-op diagnosis: same Procedure & Clinicians Study performed: Colonoscopy and polypectomy Same procedure as scheduled: Yes Indications: Personal history of colonic polyps Surgeon: Davie Bass Procedure Notes Procedure in detail: Medications: Conscious sedation using 8 mg IV midazolam and 200mcg IV of fe ntanyl The history and physical was performed/updated and the patient is ASA class is 3. The procedure was discussed in detail with the patient. Potential risks complications including infection, bleeding, missed diagnosis, perforation, need for surgery, and were explained. Their questions were answered and informed consent was obtained. Patient was brought to the procedure room and placed standard monitoring equipment. The patient's vital signs were monitored continuously throughout the entire procedure. Prior to starting time-out was performed. The patient was placed in the left lateral recumbent position. Procedural sedation was administered. Examination began with a thorough inspection of the perianal area there was no evidence of fissures, fistulae, external hemorrhoids or cutaneous malignancy. The colonoscopy scope was then placed into the anal canal and was advanced to the cecum, which was identified by the ileocecal valve, the appendiceal orifice and the confluence of the taenia. The scope was then slowly withdrawn examining colon thoroughly in all directions, irrigating it of any residual stool. FINDINGS 1. Transverse colon -<1 cm polyps removed with biopsy forceps x 3 2. Proximal rectum-5 mm polyp removed with biopsy forceps The patient tolerated the procedure well. They will be discharged once criteria are met. The prep was of good/excellent quality. The withdrawl time was 16 minutes. The sedation time was 27 minutes. Specimen(s): other (Transverse colon polyps x3, rectal polyp) Complications: none Impression: Multiple colonic polyps Post-procedure Recommendations: Will call with biopsy results Disposition: same day surgery
[2022-04-19 15:07] VITALS: BP 146/59; PULSE 63; RESP 16; TEMP 36.7; O2SAT 100
[2022-04-19 15:12] VITALS: BP 137/61; PULSE 56; RESP 16; O2SAT 98
[2022-04-19 15:17] VITALS: BP 130/66; PULSE 58; RESP 14; O2SAT 100
[2022-04-19 15:21] VITALS: BP 124/64; PULSE 55; RESP 14; O2SAT 98
== END 2022-04-19 15:31 | disposition home or self-care (01) ==
PROVIDERS: PCP Family Medicine; Referring Provider Surgery; Visit Provider Surgery
PROC: 0DJD8ZZ Inspection of Lower Intestinal Tract, Via Natural or Artificial Opening Endoscopic (ICD-10-PCS; CPT 45378; principal; 2022-04-19 14:15)
DX: Z12.11 Encounter for screening for malignant neoplasm of colon (principal); Z86.010 Personal history of colon polyps; Z72.0 Tobacco use; D12.3 Benign neoplasm of transverse colon; D12.8 Benign neoplasm of rectum
CPT/HCPCS: 45380; 99152; 99153; J2250; J3010

== ENCOUNTER → 2022-05-17 08:04 | Outpatient (CLI) | payer OTHER, MEDICAID, SELFPAY ==
[2022-05-17 11:01] LABS: Hep C Virus Ab w/Reflex Quant REACTIVE s/c (NEGATIVE)
== END ==
PROVIDERS: PCP Family Medicine; Referring Provider Family Medicine; Visit Provider Family Medicine
DX: B18.2 Chronic viral hepatitis C (principal); F11.20 Opioid dependence, uncomplicated; I69.30 Unspecified sequelae of cerebral infarction; N63.20 Unspecified lump in the left breast, unspecified quadrant; Z85.3 Personal history of malignant neoplasm of breast
CPT/HCPCS: 36415; 86803; 87522

== ENCOUNTER → 2022-07-15 12:14 | Outpatient (CLI) | payer OTHER, MEDICAID, SELFPAY ==
[2022-07-15 13:20] LABS: Estimated Glomerular Filt Rate > 60 mL/min (>60)
== END ==
PROVIDERS: PCP Family Medicine; Referring Provider Emergency Medicine; Visit Provider Emergency Medicine
DX: R22.1 Localized swelling, mass and lump, neck (principal)
CPT/HCPCS: 82565

== ENCOUNTER → 2022-07-15 12:20 | Outpatient (CLI) | payer OTHER, MEDICAID, SELFPAY ==
--- NOTE | 2022-07-15 12:37 | DI.CT.S_ITS ---
PROCEDURE: CT SOFT TISSUE NECK W CON INDICATIONS: right neck mass TECHNIQUE: After the administration of intravenous contrast, 3.0 mm axial sections acquired from the sella to the aortic arch. Additional oblique axial 3.0 mm sections acquired through the pharynx. 3 mm thick coronal and sagittal reformats were generated. For radiation dose reduction, the following was used: automated exposure control. COMPARISON: None. FINDINGS: Image quality: Excellent. Lymph nodes: No enlarged lymph nodes seen throughout the neck. Vessels: Visualized vasculature appears patent. Neck spaces: The oropharynx, nasopharynx, and pharynx demonstrate no mucosal lesions. The vocal cords, false vocal cords, pyriform sinuses, epiglottis, vallecula, and tongue base all appear normal. Extramucosal spaces appear unremarkable. Glands: A 1.6 x 1.5 by 2.5 cm circumscribed hyperenhancing lesion is seen in the posterior right parotid gland. Left parotid is unremarkable. The submandibular glands appear normal. Thyroid appears normal. Miscellaneous: Visualized brain and orbits appear normal. Lung apices appear clear. Superficial soft tissues appear normal. Bones: No suspicious bony lesions. Visualized sinuses and mastoids appear unremarkable. Multilevel degenerative changes are seen in the cervical spine. IMPRESSION: Circumscribed homogeneously hyperenhancing 2.5 cm lesion in the posterior right parotid gland could represent an enlarged intraparotid lymph node versus a parotid tumor or other nonspecific soft tissue mass. Consider tissue sampling for further evaluation. Approved by: Xavier Jenkins M.D. on 07/15/2022 at 14:32
== END ==
PROVIDERS: PCP Family Medicine; Referring Provider Family Medicine; Visit Provider Family Medicine
DX: K11.9 Disease of salivary gland, unspecified (principal)
CPT/HCPCS: 70491; 82565; Q9967

== ENCOUNTER → 2022-07-29 08:25 | Outpatient (CLI) | payer OTHER, MEDICAID, SELFPAY ==
[2022-07-29 09:07] LABS: Add Manual Diff / Slide Review NO; Basophils Absolute Auto 0 /uL (0-100); Basophils Percent Auto 0.6 % (0-2); Eosinophils Absolute Auto 200 /uL (0-450); Eosinophils Percent Auto 4.4 % (2-4); Hematocrit 39.5 % (36-46); Hemoglobin 13.5 g/dL (12.0-16.0); Lymphocytes Absolute Auto 1900 /uL (1100-4500); Lymphocytes Percent Auto 38.9 % (25-40); Mean Corpuscular HGB Conc 34.1 % (30-36); Mean Corpuscular Hemoglobin 32.1 PG (26-34); Mean Corpuscular Volume 94.1 fL (80-100); Monocytes Absolute Auto 400 /uL (0-900); Monocytes Percent Auto 7.5 % (3-14); Neutrophils Absolute Auto 2400 /uL (1500-7000); Neutrophils Percent Auto 48.6 % (50-75); Platelet Count 211 X10^3/uL (150-400); Red Cell Distribution Width 13.6 % (11.6-14.8); White Blood Cell Count 4.9 X10^3/uL (4.5-11.0)
[2022-07-29 09:15] LABS: Hemoglobin A1C% w Est Avg Glu 5.6 % (4.0-6.0)
[2022-07-29 09:52] LABS: Alanine Aminotransferase 21 IU/L (<35); Albumin 3.7 g/dL (3.5-5.0); Albumin Globulin Ratio 1.4 (1.0-2.8); Alkaline Phosphatase 84 U/L (38-126); Aspartate Aminotransferase 22 IU/L (14-36); BUN Creatinine Ratio 11.8 (6-22); Bilirubin Total 0.3 mg/dL (0.2-1.3); Blood Urea Nitrogen 12 mg/dL (7-17); Calcium 9.5 mg/dL (8.4-10.2); Carbon Dioxide 31 mmol/L (22-32); Chloride 105 mmol/L (98-107); Cholesterol 146 mg/dL (140-199); Estimated Glomerular Filt Rate > 60 mL/min (>60); Globulin 2.7 g/dL (1.7-4.1); Glucose 94 mg/dL (80-110); HDL Cholesterol 56 mg/dL (40-60); HEMOLYSIS < 15 (0-50); LDL Cholesterol Calculated 75 mg/dL (<100); Potassium 4.6 mmol/L (3.4-5.1); Sodium 139 mmol/L (137-145); Total Protein 6.4 g/dL (6.3-8.2); Triglycerides 77 mg/dL (35-150)
[2022-07-29 11:02] LABS: Creatinine Urine Random 263.6 mg/dL
[2022-07-29 11:10] LABS: Microalbumi Creatinin Ratio Ur 3.4 ug/mg CR (<30); Microalbumin Urine Random 0.9 mg/dL (0-1.6)
== END ==
PROVIDERS: PCP Family Medicine; Referring Provider Family Medicine; Visit Provider Family Medicine
DX: F41.8 Other specified anxiety disorders (principal); F43.10 Post-traumatic stress disorder, unspecified; G89.4 Chronic pain syndrome; I10 Essential (primary) hypertension; M79.7 Fibromyalgia; R01.1 Cardiac murmur, unspecified
CPT/HCPCS: 36415; 80053; 80061; 82043; 82570; 83036; 84443; 85025

== ENCOUNTER 2022-12-29 06:06 | Day surgery (SDC) | payer OTHER, MEDICAID, SELFPAY ==
[2022-12-23 14:53] VITALS: BMI 35.1
[2022-12-29] VITALS (8 sets, daily range): BP systolic 129–155; BP diastolic 74–82; PULSE 54–70; RESP 10–16; TEMP 36.2–36.7; O2SAT 95–99; BMI 35.1
--- NOTE | 2022-12-29 | PATH_ITS ---
[facility] Accession Number: [id number] No. of containers..01 Tissue . 01 Material submitted: . PAROTID - RIGHT PAROTID MASS . 01 Diagnosis: A. 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 Background parotid glandular tissue within normal limits. No evidence of malignancy. MRV 01/05/2023 0937 Local . 01 Electronically signed: . Christiana Ryan MD, Pathologist NPI- [id number] . 01 Gross description: . The specimen is received in formalin labeled with the patient's name, , and right parotid mass, and consists of an irregular unoriented dykes to brown soft tissue fragment weighing 4 grams and measuring 2.5 x 1.7 x 1.7 cm. The external surface is inked blue. The specimen is serially sectioned into six slices to reveal a dykes firm cut surface with an area of hemorrhage measuring 0.9 x 0.4 x 0.2 cm within slices 3-5. No discrete lesions are identified and the specimen is submitted entirely as follows: A1: Entire slice 1 perpendicular. A2: Entire slice 2. A3: Entire slice 3. A4: Entire slice 4. A5: Entire slice 5. A6: Entire slice 6 perpendicular. ([id number]) /MRV 12/30/2022 1939 Local . 01 Pathologist provided ICD-10: D11.9 . 01 CPT . 620287 Specimen Comment: A courtesy copy of this report has been sent to [phone] Performed at: 01 [facility] [address] [place] [address] [facility] [place], [place], [place] [id number] MD Jovi Kulkarni MD Phone: [phone]
[2022-12-29] MEDS: LACTATED RINGERS 1,000 ML 42 ML IV ×2 (07:15→08:32)
--- NOTE | 2022-12-29 07:40 | PM.PREOP ---
Pre-operative Note Interval Note History & Physical reviewed/Exam performed by Physician: Yes Changes to H&P: No
--- NOTE | 2022-12-29 07:40 | PM.OP.1 ---
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 Right superficial parotidectomy withOUT facial nerve dissection 2. facial nerve EMG Same procedure as scheduled: Yes Indications: 62 Year old with the above diagnos incompletely managed with medical therapy presents for the above procedure. Following discussion of the material risks benefits complications and alternatives, the patient elected to proceed. Surgeon: Bhavin Kang Professor Of Religion: Dwight Uribe Anesthesia Type: General and Local Operative Notes Findings: 2.5 cm well-circumscribed mass right parotid tail, lobulated. No visible or significantly stimulated facial nerve branches during the dissection. Specimen(s): other (Right parotid mass) Estimated Blood Loss (mL): 60 Procedure in detail: Following identification and confirmation of consent, as well as site of lesion, the patient was brought to the operating room suite and placed in the supine position. General endotracheal anesthesia was administered. Head was turned to the left and table was turned right side out. A modified Sukumar incision was marked in ink from the preauricular area, posterior to the lobule, and extending into the neck. This was widely infiltrated with 1% lidocaine 1 100,000 epinephrine. Facial nerve EMG electrodes were placed and monitored throughout the case by the color laboratory technician. Following sterile prep and drape, the skin and subcutaneous tissue was incised with a 15 blade and elevated the subcutaneous flap anteriorly until beyond the borders of the parotid mass. Silk stay sutures were utilized for retraction. The anterior border of the SCM was identified and freed from the parotid tissue. the mass was identified and gradually circumferentially dissected utilizing retraction and bipolar cautery including for hemostasis. Eventually the mass was able to be freed in all dimensions, including deeply and was resected. No visible branches of the facial nerve were encountered. Hemostasis was assured, and the wound was irrigated with saline and then betadine. The SMAS was completely reconstructed the fill in the operative defect. Subcutaneous tissue and deep dermis was closed with interrupted 4 0 chromic, followed by running 5 0 nylon for the skin. Antibiotic ointment was applied. She was extubated in the operating room and taken to recovery room in stable condition without complication. The assist for surgery was necessary due to the complex nature of the dissection and pertinent anatomy to include the facial nerve among others. Complications: none Post-operative Condition: stable Disposition: same day surgery Plan for aftercare: Vaseline to the incision at all times, ice 24-48 hours, Tylenol and Advil for pain control, follow-up 1 week for suture removal.
--- NOTE | 2022-12-29 08:22 | SUR.OPER ---
Supine on padded OR bed, head on gel doughnut, right arms padded and tucked at side, left arm on padded secured on padded armboard at less than 90 degrees, legs uncrossed, safety belt at thigh, tape over blanket over lower legs .
[2022-12-29] MEDS: LIDOCAINE 1% W/EPI 20 ML INJ (08:33)
[2022-12-29] MEDS: BACITRACIN OINT 0.9 GM PCKT 1 APPLIC TOP (08:39)
[2022-12-29] MEDS: HYDROCODONE/ACET 5/325 TABLET 1 TAB PO ×2 (10:10→10:21)
== END 2022-12-29 11:05 | disposition home or self-care (01) ==
PROVIDERS: PCP Family Medicine; Referring Provider Otolaryngology; Visit Provider Otolaryngology
PROC: (CPT 42410; principal; 2022-12-29 07:45)
DX: D11.0 Benign neoplasm of parotid gland (principal)
CPT/HCPCS: 42410; J0330; J1100; J2704; J3010

== ENCOUNTER → 2023-02-23 09:20 | Outpatient (CLI) | payer OTHER, MEDICAID, SELFPAY ==
--- NOTE | 2023-02-23 09:22 | DI.RAD.S_ITS ---
PROCEDURE: XR CERVICAL SPINE 4V OR 5V INDICATIONS: NECK PAIN TECHNIQUE: 5 views of the cervical spine acquired. COMPARISON: [facility], CR, XR CERVICAL SPINE 2V OR 3V, 12/22/2021, 11:24. FINDINGS: Bones: No fractures or dislocations to the T1 level. Mild anterolisthesis of C2 on C3 and C3 on C4. Trace retrolisthesis of C4 on C5. Multilevel facet arthropathy. Oblique images demonstrate bony foraminal narrowing on the left at C4-C5, C5-C6, and C6-C7. Right bony foraminal narrowing is present at C3-C4 and to a certain extent at C6-C7. Soft tissues: No prevertebral soft tissue swelling. IMPRESSION: Cervical spondylitic change with multilevel facet arthropathy and bony foraminal narrowing as described above. Dictated by: Carmelo Hart M.D. on 02/23/2023 at 9:54 Approved by: Carmelo Hart M.D. on 02/23/2023 at 9:57
--- NOTE | 2023-02-23 09:22 | DI.RAD.S_ITS ---
PROCEDURE: XR SHOULDER RT MIN 2V INDICATIONS: RIGHT SHOULDER PAIN TECHNIQUE: 3 views of the shoulder were acquired. COMPARISON: [facility] [place], CR, XR SHOULDER 2+ VIEWS RIGHT, 04/04/2022, 15:31. FINDINGS: Bones: No fractures or dislocations. No suspicious bony lesions. Moderate to severe glenohumeral joint degeneration and mild acromioclavicular joint degeneration. Visualized ribs appear intact. Soft tissues: No suspicious soft tissue calcifications. Surgical clips in the right axilla. IMPRESSION: [id number] degenerative joint disease. Dictated by: Ayad Kay M.D. on 02/23/2023 at 13:26 Approved by: Ayad Kay M.D. on 02/23/2023 at 13:27
== END ==
PROVIDERS: Family Provider Family Medicine; PCP Family Medicine; Referring Provider Anesthesiology; Visit Provider Anesthesiology
DX: M47.812 Spondylosis without myelopathy or radiculopathy, cervical region (principal); M25.511 Pain in right shoulder; M19.011 Primary osteoarthritis, right shoulder; S46.011A Strain of muscle(s) and tendon(s) of the rotator cuff of right shoulder, initial encounter; M48.02 Spinal stenosis, cervical region; M54.2 Cervicalgia; G89.4 Chronic pain syndrome
CPT/HCPCS: 72050; 73030; 99214

== ENCOUNTER → 2023-04-15 13:23 | Outpatient (CLI) | payer OTHER, MEDICAID, SELFPAY ==
--- NOTE | 2023-04-15 13:25 | DI.MRI.S_ITS ---
PROCEDURE: MR LUMBAR SPINE WO CON INDICATIONS: Spinal stenosis, lumbar region TECHNIQUE: Noncontrast sagittal T1 spin echo and T2 fast echo, sagittal STIR, and T2 fast spin echo through the lumbar spine. In cases with scoliosis, additional coronal T2 fast spin echo may be performed. COMPARISON: None. FINDINGS: Image quality: Excellent. Alignment and Curvature: Preservation of lordosis. Mild grade 1 retrolisthesis at T12-L1, L1-L2, L2-L3 and L3-L4.. Bone Marrow: Postsurgical changes from L4-5 posterior spinal fixation. Marrow is of normal overall signal. No acute vertebral body compression fractures. Spinal Cord: Conus medullaris terminates at the L2 level. Visualized cord demonstrates normal signal and size. Paraspinous Soft Tissues: No paravertebral masses. Fatty atrophy of the lower lumbar spine musculature. Small renal cysts. T12-L1: Disc desiccation height loss with a posterior disc bulge. No central canal stenosis. Facet arthropathy. No neural foraminal stenosis. L1-L2: Disc desiccation with a small posterior disc bulge. Facet arthropathy and thickening ligamentum flavum. Epidural lipomatosis. No significant central canal stenosis. No neural foraminal stenosis. L2-L3: Disc desiccation and small posterior disc bulge. Facet arthropathy and thickening of ligamentum flavum. Mild epidural lipomatosis. Mild central canal stenosis. Mild bilateral neural foraminal stenosis. L3-L4: Disc desiccation and small posterior disc bulge. Facet arthropathy. Epidural lipomatosis. Ligamentum flavum hypertrophy. Mild to moderate central canal stenosis. Moderate bilateral neural foraminal stenosis. L4-L5: Status post discectomy. Hardware artifact mildly limits evaluation. Mild central canal stenosis. Mild bilateral neural foraminal stenosis. L5-S1: Disc desiccation. Facet hypertrophy. Mild central canal stenosis. Moderate left and mild right neural foraminal stenosis. IMPRESSION: 1. Multilevel degenerative changes of the lumbar spine status post L4-5 posterior fixation and discectomy. 2. Degenerative disease is worse at L3-L4 with mild to moderate central canal stenosis and moderate bilateral neural foraminal stenosis. Dictated by: Efraín Trammell M.D. on 04/17/2023 at 8:31 Approved by: Efraín Trammell M.D. on 04/17/2023 at 8:38
--- NOTE | 2023-04-15 13:25 | DI.MRI.S_ITS ---
PROCEDURE: MR CERVICAL SPINE WO CON INDICATIONS: Spinal stenosis, lumbar region TECHNIQUE: Noncontrast sagittal T1 spin echo and T2 fast spin echo, sagittal STIR, foraminal oblique sagittal T2 fast spin echo, and axial gradient echo or T2 fast spin echo through the cervical spine. COMPARISON: [facility], MR, MR CERVICAL SPINE WO CON, 02/10/2022, 11:13. FINDINGS: Image quality: Excellent. Alignment and Curvature: Straightening of the normal cervical lordosis with mild reversal centered C5. Minimal anterolisthesis of C3 on C4. Bone Marrow: Multilevel degenerative endplate changes. No suspicious marrow replacing lesions. Spinal Cord: Visualized spinal cord has normal size and signal. No cerebellar tonsillar herniation. Paraspinous Soft Tissues: No paravertebral masses. Prevertebral soft tissues are normal in thickness. C2-C3: Disc desiccation and posterior disc osteophyte complex without significant central canal stenosis. Facet and uncovertebral arthropathy resulting moderate to severe left neural foraminal stenosis. No right neural foraminal stenosis. This is stable compared to prior. C3-C4: Disc desiccation and posterior disc osteophyte complex resulting in mild central canal stenosis. Facet and uncovertebral arthropathy resulting in stable moderate to severe bilateral neural foraminal stenosis. C4-C5: Disc desiccation and posterior disc osteophyte complex resulting in moderate central canal stenosis with abutment and mild indentation of the ventral cord without cord signal abnormality. Facet and uncovertebral arthropathy resulting in severe left and moderate right-sided neural foraminal stenosis. This is similar compared to prior. C5-C6: Posterior disc osteophyte complex resulting in mild central canal stenosis. Facet and uncovertebral arthropathy resulting in moderate to severe left and mild right neural foraminal stenosis, stable compared to prior. C6-C7: Posterior disc osteophyte complex abutting the ventral cord without cord signal abnormality. Mild to moderate central canal stenosis. Facet and uncovertebral arthropathy resulting in moderate to severe bilateral neural foraminal stenosis which is stable. C7-T1: Disc desiccation and posterior disc osteophyte complex resulting in mild central canal stenosis, stable. Facet and uncovertebral arthropathy resulting in moderate to severe bilateral neural foraminal stenosis, stable. IMPRESSION: 1. Multilevel degenerative changes of the cervical spine a which are similar compared to prior. 2. Central canal stenosis is worse at C4-C5 with moderate central canal stenosis and abutment and indentation of the ventral cord without cord signal abnormality. 3. Multilevel moderate and severe neural foraminal narrowing as described above. Dictated by: Efraín Trammell M.D. on 04/17/2023 at 8:19 Approved by: Efraín Trammell M.D. on 04/17/2023 at 8:31
== END ==
PROVIDERS: Family Provider Family Medicine; PCP Family Medicine; Referring Provider Physician Assistant Surgical; Visit Provider Physician Assistant Surgical
DX: M48.02 Spinal stenosis, cervical region (principal); M47.812 Spondylosis without myelopathy or radiculopathy, cervical region; M48.061 Spinal stenosis, lumbar region without neurogenic claudication; M47.816 Spondylosis without myelopathy or radiculopathy, lumbar region; M51.36 Other intervertebral disc degeneration, lumbar region
CPT/HCPCS: 72141; 72148

== ENCOUNTER 2023-04-27 10:15 | Outpatient (RCR) | payer OTHER, MEDICAID, SELFPAY ==
--- NOTE | 2023-03-08 13:23 | PT.OIE ---
Current Diagnoses Chronic pain syndrome (03/08/23) Spondylosis without myelopathy or radiculopathy, cervical region (03/08/23) Spinal stenosis, cervical region (03/08/23) Past Medical History (Last Reviewed 02/23/23 @ 10:43 by Uriah Frey MD) Adhesive capsulitis Anxiety with depression Breast pain Carpal tunnel syndrome (~1995) Cervical cancer screening Cervical spondylosis Chicken pox (~1968) Cholesteatoma Chronic back pain Chronic hepatitis C without hepatic coma (09/24/15) Chronic left shoulder pain Chronic pain syndrome (09/24/15) Colon polyps Cutaneous candidiasis Foot dermatitis Heart murmur Hemorrhoid History of bipolar disorder History of breast cancer (~2005) Hypertension (~1989) Kidney stones (~2014) Menopause (~1997) Neuroforaminal stenosis of cervical spine Parotid mass PTSD (post-traumatic stress disorder) Right shoulder pain (~2020) Rotator cuff tear Skin cyst Stroke Substance abuse Uncomplicated opioid dependence Vertigo Warthin's tumor Past Surgical History (Last Reviewed 02/23/23 @ 10:43 by Uriah Frey MD) Anesthesia H/O right wrist surgery (~1984) History of back surgery (~2018) History of colonoscopy (~2020) History of coronary artery stent placement (~2019) History of hemorrhoidectomy (~1989) History of placement of ear tubes Visit Care Team Role Provider Type Josef Zendejas MD Attending Provider Physician Family Provider Primary Care Provider Referring Provider Specialty: Family Practice Address: [address] [place] [address] Email: [email or web address] Physical Therapy Initial Evaluation PT-OP-A Visit Information Start: 03/08/23 12:39 Freq: Status: Active Protocol: Document 03/08/23 11:05 DCW (Rec: 03/08/23 13:01 DCW [id number]) Out-Patient Physical Therapy Visit Information Visit Information Visit Type Initial Evaluation Visit Start Time 11:05 Visit Stop Time 11:45 Total Visit Minutes 40 Visit Number 1 Number of DIRECTOR EXPORT Visits 0 Evaluation Information Evaluation Date 03/08/23 PT-OP-B Current Condition Start: 03/08/23 12:39 Freq: Status: Active Protocol: Document 03/08/23 11:05 DCW (Rec: 03/08/23 13:01 [facility] [id number]) Current Condition History of Current Condition Onset Date Two year history Current Complaints Cervical pain and stiffness, R shoulder pain, bilateral radicular symptoms History of Current Condition Pt is a 62 year old female with a two year history of neck and shoulder dysfunction. Pt reports that she received a cervical and shoulder MRI one year ago, which showed significant degenerative changes throughout her cervical spine, as well as a right supraspinatus tear and two labral tears. Has undergone PT for the past year on her shoulder at a different clinic, and feels that it's probably as good as it's going to get, but her cervical symptoms have been getting worse, including radicular pain and tingling bilaterally. Pt reports she has gone to both an Ortho on [facility] and to , and was told she is not a candidate for cervical surgery due to her history of heart problems. Pt reports she often has tingling and numbness in her arms, as well as flash headaches, which she never had to deal with before. Pt does relay considerable concern regarding further PT, admits that due to the severity of her MRI results, she is afraid that PT can't help her, and it may even be dangerous for her to perform too much activity. Prior Treatments and Tests Cervical MRI: IMPRESSION: Multiple levels of cervical spine degenerative change are seen, which are worst inferiorly. per Parth Ruelas M.D. on 02/10/2022 Right Shoulder MRI: IMPRESSION: 1. Tendinosis and low to moderate grade articular and bursal surface partial thickness tear involving distal supraspinatus extending to musculotendinous junction. No full-thickness rotator cuff tendon rupture. Distal infraspinatus and subscapularis tendinosis. 2. Moderate to severe glenohumeral joint osteoarthritis and moderate acromioclavicular joint osteoarthritis. No fracture or dislocation. Moderate subacromial subdeltoid bursal fluid with intra-articular loose body measures approximately 9 mm in size. 3. Suggestion of superior anterior labral tear at 12 to 1 o'clock position and anterior-inferior labral tear at 4 to 6 o'clock position. per Darren Harrison M.D. on 2021 Cervical x-ray: IMPRESSION: Cervical spondylitic change with multilevel facet arthropathy and bony foraminal narrowing as described above. per Carmelo Hart M.D. on 02/23/2023 Treatment Goals Patient/Caregiver Goals Decrease radicular symptoms Personal Factors Other Personal Factors That May Effect Cervical stenosis, CVA, Therapy/Recovery Fibromyalgia, R/C tear, GH labrum tear, anxiety, depression, Hx Breast Ca, Heart murmur secondary to defect PT-OP-C Subjective Start: 03/08/23 12:39 Freq: Status: Active Protocol: Document 03/08/23 11:05 DCW (Rec: 03/08/23 13:01 DCW [id number]) OP-PT Subjective Patient Comments Patient Comments I'm not a surgical candidate because of my heart, but they also said that my heart means that I can't get steroid injections either. Patient Questionnaires Oswestry Low Back Index Oswestry Score 30/50 = 60% Oswestry Impairment 60 to 79% Impaired (Score 60- 79) OP-PT Pain Assessment Pain Assessment Grid Paper Pain Assessment Grid Completed Yes: See scan PT-OP-F Manual Assessment Start: 03/08/23 12:39 Freq: Status: Active Protocol: Document 03/08/23 11:05 DCW (Rec: 03/08/23 13:01 DCW [id number]) Manual Assessments Soft Tissue Assessment Soft Tissue Mobility Assessment Moderate tone along right upper trap, right SCM, right scalenes, bilateral suboccipitals with tenderness to palpation 2/4: Pain with wincing Joint Mobility Assessment Joint Mobility Assessment Vertebral hypomobility through cervical spine PT-OP-J Posture/Palpation/Skin Start: 03/08/23 12:39 Freq: Status: Active Protocol: Document 03/08/23 11:05 DCW (Rec: 03/08/23 13:01 DCW [id number]) Posture Evaluation Position Sitting Evaluation View Lateral Head/C-Spine Posture Forward Head T-Spine Posture Increased Kyphosis Shoulder Posture (L) Rounded,(R) Rounded PT-OP-K Range of Motion Start: 03/08/23 12:39 Freq: Status: Active Protocol: Document 03/08/23 11:05 DCW (Rec: 03/08/23 13:01 DCW [id number]) Cervical Spine Range of Motion Cervical Spine Active Degrees Testing Position Sitting Flexion 35 Extension 25 Rotation Left 38 Rotation Right 38 Lateral Flexion Left 13 Lateral Flexion Right 20 ROM Limitations Soft Tissue Tightness,Bony Restriction,Muscle Tone,Pain PT-OP-L Special Tests Start: 03/08/23 12:39 Freq: Status: Active Protocol: Document 03/08/23 11:05 DCW (Rec: 03/08/23 13:01 DCW [id number]) Special Tests Cervical Spine Special Tests Traction Test Results Improvement in symptoms Spurling's Test Test Results Increases radicular symptoms bilaterally Slump Test Results Increases radicular symptoms bilaterally Foraminal Compression Test Results Increases radicular symptoms bilaterally PT-OP-Q Treatments Start: 03/08/23 12:39 Freq: Status: Active Protocol: Document 03/08/23 11:05 DCW (Rec: 03/08/23 13: DCW [id number]) Therapeutic Exercises Standing Exercises Wall posture Standing Exercise Name Chin tucks against wall PT-OP-T Assessment and Plan Start: 03/08/23 12:39 Freq: Status: Active Protocol: Document 03/08/23 11:05 DCW (Rec: 03/08/23 13:23 DCW [id number]) Physical Therapy Assessment Rehab Potential Rehabilitation Potential Good Evaluation Complexity Number of Personal Factors/Comorbidities 3 or More Number of Body Systems Impaired 4 or More Clinical Presentation at Evaluation Unstable Impairments Impairments Activity Tolerance,Functional Activities,Functional Mobility ,Pain,Posture,ROM,Sensation, Soft Tissue Mobility Goals Three Impairment Significantly impaired cervical ROM Longterm Goal (LTG) Pt to improve asymptomatic cervical ROM to 35? bilateral lateral flexion and 45? bilateral rotation in order to improve ability to turn her head and look at traffic while driving LTG Duration 05/08/23 Two Impairment Pt experiences bilateral UE tingling in any position other than supine Gm Goal (LTG) Pt to demonstrate ability to stand for 30 minutes and wash dishes without any numbness or tingling in her upper extremities. LTG Duration 05/08/23 One Impairment Pt does not have an appropriate home exercise program Short Term Goal (STG) Pt to be independent and compliant with an appropriate HEP STG Duration 04/07/23 Assessment Summary Assessment Pt presents with signs and symptoms consistent with referring diagnosis. Pt showing symptoms of radicular pain from nerve root compression, worsened with cervical compression and noted relief with manual traction. Pt also demonstrates increased tone in cervical paraspinals , R>L, especially upper trap, SCM, and scalenes. Pt should benefit from skilled therapy focusing on cervical mobility, flexibility, tone management, STM, gentle strengthening, and pain management. Pt does have lingering symptoms stemming from right supraspinatus and labral tears , however pt notes that she would prefer to focus on the neck more than anything else, as she has already undergone ~ one year of shoulder PT, which ended up always seeming to flare-up her neck anyway. Physical Therapy Plan Frequency and Duration Frequency of Treatment 2x/Week Plan of Care Start Date 03/08/23 Plan of Care End Date 05/08/23 Therapeutic Interventions Therapeutic Interventions Home Exercise Program,Joint Mobilizations,Manual Therapy, Neuromuscular Re-education, Patient/Caregiver Education, Self-Care/Home Management,Soft Tissue Mobilization, Therapeutic Activities, Therapeutic Exercises Modalities Cold Pack/Ice Massage,Hot Packs,Traction- Mechanical Next Visit Focus/Plan Next Note Type Treatment Note Next Visit Plan Gentle STM, manual traction, cervical strengthening
--- NOTE | 2023-03-08 13:24 | PT.OPPOC ---
Physical, Occupational & Speech Therapy At [facility] Current Diagnoses Chronic pain syndrome (03/08/23) Spondylosis without myelopathy or radiculopathy, cervical region (03/08/23) Spinal stenosis, cervical region (03/08/23) Visit Care Team Role Provider Type Josef Zendejas MD Attending Provider Physician Family Provider Primary Care Provider Referring Provider Specialty: Family Practice Address: [address] [place] [address], [facility] Email: [email or web address] Plan Of Care PT-OP-T Assessment and Plan Start: 03/08/23 12:39 Freq: Status: Active Protocol: Document 03/08/23 11:05 DCW (Rec: 03/08/23 13:23 DCW [id number]) Physical Therapy Assessment Rehab Potential Rehabilitation Potential Good Evaluation Complexity Number of Personal Factors/Comorbidities 3 or More Number of Body Systems Impaired 4 or More Clinical Presentation at Evaluation Unstable Impairments Impairments Activity Tolerance,Functional Activities,Functional Mobility ,Pain,Posture,ROM,Sensation, Soft Tissue Mobility Goals Three Impairment Significantly impaired cervical ROM Senior Care Goal (LTG) Pt to improve asymptomatic cervical ROM to 35? bilateral lateral flexion and 45? bilateral rotation in order to improve ability to turn her head and look at traffic while driving LTG Duration 05/08/23 Two Impairment Pt experiences bilateral UE tingling in any position other than supine Equipment Maintenance Tech Goal (LTG) Pt to demonstrate ability to stand for 30 minutes and wash dishes without any numbness or tingling in her upper extremities. LTG Duration 05/08/23 One Impairment Pt does not have an appropriate home exercise program Short Term Goal (STG) Pt to be independent and compliant with an appropriate HEP STG Duration 04/07/23 Assessment Summary Assessment Pt presents with signs and symptoms consistent with referring diagnosis. Pt showing symptoms of radicular pain from nerve root compression, worsened with cervical compression and noted relief with manual traction. Pt also demonstrates increased tone in cervical paraspinals , R>L, especially upper trap, SCM, and scalenes. Pt should benefit from skilled therapy focusing on cervical mobility, flexibility, tone management, STM, gentle strengthening, and pain management. Pt does have lingering symptoms stemming from right supraspinatus and labral tears , however pt notes that she would prefer to focus on the neck more than anything else, as she has already undergone ~ one year of shoulder PT, which ended up always seeming to flare-up her neck anyway. Physical Therapy Plan Frequency and Duration Frequency of Treatment 2x/Week Plan of Care Start Date 03/08/23 Plan of Care End Date 05/08/23 Therapeutic Interventions Therapeutic Interventions Home Exercise Program,Joint Mobilizations,Manual Therapy, Neuromuscular Re-education, Patient/Caregiver Education, Self-Care/Home Management,Soft Tissue Mobilization, Therapeutic Activities, Therapeutic Exercises Modalities Cold Pack/Ice Massage,Hot Packs,Traction- Mechanical Next Visit Focus/Plan Next Note Type Treatment Note Next Visit Plan Gentle STM, manual traction, cervical strengthening Plan of Care Dates Plan of Care Start Date 03/08/23 Plan of Care End Date 05/08/23 Electronically Signed by: Jeff Hackett, PT 03/08/23 3672 If you are in agreement with this Plan of Care, please return a signed and dated copy. I have reviewed this Plan of Care and certify that the skilled therapy services above are required to meet the patient?s needs. Physician Signature Date Printed Name and Credentials Clinical Instructor Signature Printed Name and Credentials
--- NOTE | 2023-03-13 11:40 | PT.OTN ---
Addendum entered and electronically signed by Jailyn Sharma PTA 03/13/23 16:16: Limited visits: 2 units /tx Original Note: Current Diagnoses Chronic pain syndrome (03/13/23) Spondylosis without myelopathy or radiculopathy, cervical region (03/13/23) Spinal stenosis, cervical region (03/13/23) Physical Therapy Treatment Note PT-OP-A Visit Information Start: 03/08/23 12:39 Freq: Status: Active Protocol: Document 03/13/23 11:04 SP (Rec: 03/13/23 11:42 SP [id number]) Out-Patient Physical Therapy Visit Information Visit Information Visit Type Treatment Note Visit Note Pt 19 min late for appt due to traffic. Visit Start Time 11:04 Visit Stop Time 11:40 Total Visit Minutes 36 Visit Number 2 Number of ACCELERATOR OPERATOR Visits 1 Evaluation Information Evaluation Date 03/08/23 PT-OP-B Current Condition Start: 03/08/23 12:39 Freq: Status: Active Protocol: Document 03/08/23 11:05 DCW (Rec: 03/08/23 13:01 DCW [id number]) Current Condition History of Current Condition Onset Date Two year history Current Complaints Cervical pain and stiffness, R shoulder pain, bilateral radicular symptoms History of Current Condition Pt is a 62 year old female with a two year history of neck and shoulder dysfunction. Pt reports that she received a cervical and shoulder MRI one year ago, which showed significant degenerative changes throughout her cervical spine, as well as a right supraspinatus tear and two labral tears. Has undergone PT for the past year on her shoulder at a different clinic, and feels that it's probably as good as it's going to get, but her cervical symptoms have been getting worse, including radicular pain and tingling bilaterally. Pt reports she has gone to both an Ortho on [facility] and to , and was told she is not a candidate for cervical surgery due to her history of heart problems. Pt reports she often has tingling and numbness in her arms, as well as flash headaches, which she never had to deal with before. Pt does relay considerable concern regarding further PT, admits that due to the severity of her MRI results, she is afraid that PT can't help her, and it may even be dangerous for her to perform too much activity. Prior Treatments and Tests Cervical MRI: IMPRESSION: Multiple levels of cervical spine degenerative change are seen, which are worst inferiorly. per Parth Ruelas M.D. on 02/10/2022 Right Shoulder MRI: IMPRESSION: 1. Tendinosis and low to moderate grade articular and bursal surface partial thickness tear involving distal supraspinatus extending to musculotendinous junction. No full-thickness rotator cuff tendon rupture. Distal infraspinatus and subscapularis tendinosis. 2. Moderate to severe glenohumeral joint osteoarthritis and moderate acromioclavicular joint osteoarthritis. No fracture or dislocation. Moderate subacromial subdeltoid bursal fluid with intra-articular loose body measures approximately 9 mm in size. 3. Suggestion of superior anterior labral tear at 12 to 1 o'clock position and anterior-inferior labral tear at 4 to 6 o'clock position. per Darren Harrison M.D. on 2021 Cervical x-ray: IMPRESSION: Cervical spondylitic change with multilevel facet arthropathy and bony foraminal narrowing as described above. per Carmelo Hart M.D. on 02/23/2023 Treatment Goals Patient/Caregiver Goals Decrease radicular symptoms Personal Factors Other Personal Factors That May Effect Cervical stenosis, CVA, Therapy/Recovery Fibromyalgia, R/C tear, GH labrum tear, anxiety, depression, Hx Breast Ca, Heart murmur secondary to defect PT-OP-C Subjective Start: 03/08/23 12:39 Freq: Status: Active Protocol: Document 03/13/23 11:04 SP (Rec: 03/13/23 11:42 SP [id number]) OP-PT Subjective Patient Comments Patient Comments Pt reported little irritation in R>L side of neck after appt due to assessing ROM and uses MHP and pain meds. Her daughter helps massage neck, back and pec areas which helps decrease tightness and some tingling into UEs. She stated compliant with wall posture instructed. SHe states if sits up to long gets tingling in B UEs as well. PT-OP-F Manual Assessment Start: 03/08/23 12:39 Freq: Status: Active Protocol: Document 03/08/23 11:05 DCW (Rec: 03/08/23 13:01 DCW [id number]) Manual Assessments Soft Tissue Assessment Soft Tissue Mobility Assessment Moderate tone along right upper trap, right SCM, right scalenes, bilateral suboccipitals with tenderness to palpation 2/4: Pain with wincing Joint Mobility Assessment Joint Mobility Assessment Vertebral hypomobility through cervical spine PT-OP-J Posture/Palpation/Skin Start: 03/08/23 12:39 Freq: Status: Active Protocol: Document 03/08/23 11:05 DCW (Rec: 03/08/23 13:01 DCW [id number]) Posture Evaluation Position Sitting Evaluation View Lateral Head/C-Spine Posture Forward Head T-Spine Posture Increased Kyphosis Shoulder Posture (L) Rounded,(R) Rounded PT-OP-K Range of Motion Start: 03/08/23 12:39 Freq: Status: Active Protocol: Document 03/08/23 11:05 DCW (Rec: 03/08/23 13:01 DCW [id number]) Cervical Spine Range of Motion Cervical Spine Active Degrees Testing Position Sitting Flexion 35 Extension 25 Rotation Left 38 Rotation Right 38 Lateral Flexion Left 13 Lateral Flexion Right 20 ROM Limitations Soft Tissue Tightness,Bony Restriction,Muscle Tone,Pain PT-OP-L Special Tests Start: 03/08/23 12:39 Freq: Status: Active Protocol: Document 03/08/23 11:05 DCW (Rec: 03/08/23 13:01 DCW [id number]) Special Tests Cervical Spine Special Tests Traction Test Results Improvement in symptoms Spurling's Test Test Results Increases radicular symptoms bilaterally Slump Test Results Increases radicular symptoms bilaterally Foraminal Compression Test Results Increases radicular symptoms bilaterally PT-OP-Q Treatments Start: 03/08/23 12:39 Freq: Status: Active Protocol: Document 03/13/23 11:04 SP (Rec: 03/13/23 11:42 SP [id number]) Therapeutic Exercises Supine Exercises chin tuck Supine Exercise Name initiated Reps/Minutes 5 x5 Comments cued slow gentle fluid ROM, not forceful- good feedback response Sitting Exercises UT, LS stretching Sitting Exercise Name added to HEP Reps/Minutes 10sec hold x5 reps - painfree slow fluid range- gave HO Comments Mod verbal/tactile cues for proper positioning michael LS- good response scap retraction Sitting Exercise Name added HEP Side bilateral Reps/Minutes 5 x5 Comments ed gentle slow fluid engagement, not arms involvement chin tuck Sitting Exercise Name added HEP Equipment Used good response Reps/Minutes 5 x5 Comments cued small range head nod yes w/CS retraction neutral small fluid pnfree rg Standing Exercises Wall posture Standing Exercise Name Chin tucks against wall- HEP reviewed Equipment Used NExt tx add towel behind head contact Reps/Minutes 5 x5 - Comments ed apply chin tuck/retraction to neutral- not able touch wall yet. Manual Therapy Treatment Soft Tissue Mobilization neck Body Location R>L UT, LS, scalene, UT, pec minor Mobilization Type Myofascial Release,Sustained Pressure,Other Intensity/Depth Superficial Body Position Hooklying Comments manual and requested feedback for pressure, while discussion of anatomy and postural awareness, introduction small range stretching with good feedback response. Manual Traction CS Details manual traction Body Position Hooklying Comments slow gentle cervical elongation, with requested feedback- good response. PT-OP-T Assessment and Plan Start: 03/08/23 12:39 Freq: Status: Active Protocol: Document 03/13/23 11:04 SP (Rec: 03/13/23 11:42 SP [id number]) Physical Therapy Assessment Goals Three Impairment Significantly impaired cervical ROM Residential Goal (LTG) Pt to improve asymptomatic cervical ROM to 35? bilateral lateral flexion and 45? bilateral rotation in order to improve ability to turn her head and look at traffic while driving LTG Duration 05/08/23 Two Impairment Pt experiences bilateral UE tingling in any position other than supine Residential Goal (LTG) Pt to demonstrate ability to stand for 30 minutes and wash dishes without any numbness or tingling in her upper extremities. LTG Duration 05/08/23 One Impairment Pt does not have an appropriate home exercise program Short Term Goal (STG) Pt to be independent and compliant with an appropriate HEP 03/13/23: HEP: chin tuck, scap retraction, UT/ LS gentle ROM/ stretching, wall posture. STG Duration 04/07/23 updated 03/13/23 Assessment Summary Assessment Pt good response to gentle manual, encourage continue daughter assist with same feedback gave ACCELERATOR OPERATOR today. Improved slow small range AROM CS and cervical/scapular retraction added today to compliment posture, cued not over tightness ex slow gentle fluid ROM then painfree and little good effort reported. Physical Therapy Plan Frequency and Duration Frequency of Treatment 2x/Week Plan of Care Start Date 03/08/23 Plan of Care End Date 05/08/23 Therapeutic Interventions Therapeutic Interventions Home Exercise Program,Joint Mobilizations,Manual Therapy, Neuromuscular Re-education, Patient/Caregiver Education, Self-Care/Home Management,Soft Tissue Mobilization, Therapeutic Activities, Therapeutic Exercises Modalities Cold Pack/Ice Massage,Hot Packs,Traction- Mechanical Next Visit Focus/Plan Next Note Type Treatment Note Next Visit Plan REview HEP: chin tuck, scap retraction, UT/ LS gentle ROM/ stretching, wall posture. Next tx: show self STMs, initiated/check response nerve glides for assist reduce UE tingling. POC: Gentle STM, manual traction, cervical strengthening
--- NOTE | 2023-03-23 12:55 | PT-OP ANOTE ---
During patient's visit today (03/23/23) with MEKHI Chaves, patient admitted to recent bowel/bladder incontinence and noted that she was not even aware that she had had an accident. This has been happening more frequently, but pt was too embarrassed to admit it before today. Noted she has an appointment with her PCP next week, AUTOMOTIVE TIRE TESTING SUPERVISOR stressed importance of letting him know this information. This therapist phoned PCP's office, unfortunately they were unable to get her in earlier. Phoned patient, left voicemail requesting patient call back to discuss these symptoms.
--- NOTE | 2023-03-23 15:40 | PT-OP ANOTE ---
Pt returned prior voicemail today, spoke with her regarding symptoms, she feels it is not an emergency situation, has actually been occurring over the past year, she just noticed that it has been happening a bit more frequently. Agrees to discuss it with her PCP at her appointment next week.
--- NOTE | 2023-03-23 16:37 | PT.OTN ---
Current Diagnoses Chronic pain syndrome (03/23/23) Spondylosis without myelopathy or radiculopathy, cervical region (03/23/23) Spinal stenosis, cervical region (03/23/23) Physical Therapy Treatment Note PT-OP-A Visit Information Start: 03/08/23 12:39 Freq: Status: Active Protocol: Document 03/23/23 11:03 SW (Rec: 03/23/23 13:03 SW [id number]) Out-Patient Physical Therapy Visit Information Visit Information Visit Type Treatment Note Visit Start Time 11:04 Visit Stop Time 11:44 Total Visit Minutes 40 Visit Number 3 Number of ROLL HANDLER Visits 2 PT-OP-B Current Condition Start: 03/08/23 12:39 Freq: Status: Active Protocol: Document 03/08/23 11:05 DCW (Rec: 03/08/23 13:01 DCW [id number]) Current Condition History of Current Condition Onset Date Two year history Current Complaints Cervical pain and stiffness, R shoulder pain, bilateral radicular symptoms History of Current Condition Pt is a 62 year old female with a two year history of neck and shoulder dysfunction. Pt reports that she received a cervical and shoulder MRI one year ago, which showed significant degenerative changes throughout her cervical spine, as well as a right supraspinatus tear and two labral tears. Has undergone PT for the past year on her shoulder at a different clinic, and feels that it's probably as good as it's going to get, but her cervical symptoms have been getting worse, including radicular pain and tingling bilaterally. Pt reports she has gone to both an Ortho on [facility] and to , and was told she is not a candidate for cervical surgery due to her history of heart problems. Pt reports she often has tingling and numbness in her arms, as well as flash headaches, which she never had to deal with before. Pt does relay considerable concern regarding further PT, admits that due to the severity of her MRI results, she is afraid that PT can't help her, and it may even be dangerous for her to perform too much activity. Prior Treatments and Tests Cervical MRI: IMPRESSION: Multiple levels of cervical spine degenerative change are seen, which are worst inferiorly. per Parth Ruelas M.D. on 02/10/2022 Right Shoulder MRI: IMPRESSION: 1. Tendinosis and low to moderate grade articular and bursal surface partial thickness tear involving distal supraspinatus extending to musculotendinous junction. No full-thickness rotator cuff tendon rupture. Distal infraspinatus and subscapularis tendinosis. 2. Moderate to severe glenohumeral joint osteoarthritis and moderate acromioclavicular joint osteoarthritis. No fracture or dislocation. Moderate subacromial subdeltoid bursal fluid with intra-articular loose body measures approximately 9 mm in size. 3. Suggestion of superior anterior labral tear at 12 to 1 o'clock position and anterior-inferior labral tear at 4 to 6 o'clock position. per Darren Harrison M.D. on 2021 Cervical x-ray: IMPRESSION: Cervical spondylitic change with multilevel facet arthropathy and bony foraminal narrowing as described above. per Carmelo Hart M.D. 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 reports bladder/bowel movements without knowing it several times a week, declines tingling or numbness present in saddle area. Reported increase in cervical pain and migraine for 2 days post tx. PT-OP-F Manual Assessment Start: 03/08/23 12:39 Freq: Status: Active Protocol: Document 03/08/23 11:05 DCW (Rec: 03/08/23 13:01 DCW [id number]) Manual Assessments Soft Tissue Assessment Soft Tissue Mobility Assessment Moderate tone along right upper trap, right SCM, right scalenes, bilateral suboccipitals with tenderness to palpation 2/4: Pain with wincing Joint Mobility Assessment Joint Mobility Assessment Vertebral hypomobility through cervical spine PT-OP-J Posture/Palpation/Skin Start: 03/08/23 12:39 Freq: Status: Active Protocol: Document 03/08/23 11:05 DCW (Rec: 03/08/23 13:01 DCW [id number]) Posture Evaluation Position Sitting Evaluation View Lateral Head/C-Spine Posture Forward Head T-Spine Posture Increased Kyphosis Shoulder Posture (L) Rounded,(R) Rounded PT-OP-K Range of Motion Start: 03/08/23 12:39 Freq: Status: Active Protocol: Document 03/08/23 11:05 DCW (Rec: 03/08/23 13:01 DCW [id number]) Cervical Spine Range of Motion Cervical Spine Active Degrees Testing Position Sitting Flexion 35 Extension 25 Rotation Left 38 Rotation Right 38 Lateral Flexion Left 13 Lateral Flexion Right 20 ROM Limitations Soft Tissue Tightness,Bony Restriction,Muscle Tone,Pain PT-OP-L Special Tests Start: 03/08/23 12:39 Freq: Status: Active Protocol: Document 03/08/23 11:05 DCW (Rec: 03/08/23 13:01 DCW [id number]) Special Tests Cervical Spine Special Tests Traction Test Results Improvement in symptoms Spurling's Test Test Results Increases radicular symptoms bilaterally Slump Test Results Increases radicular symptoms bilaterally Foraminal Compression Test Results Increases radicular symptoms bilaterally PT-OP-Q Treatments Start: 03/08/23 12:39 Freq: Status: Active Protocol: Document 03/23/23 11:03 SW (Rec: 03/23/23 13:03 SW [id number]) Therapeutic Exercises Supine Exercises Diaphragmatic Breathing Supine Exercise Name Diaphragmatic breathing- Added to HEP Comments Hooklying Sitting Exercises UT, LS stretching Sitting Exercise Name Reviewed HEP Reps/Minutes 10sec hold x5 reps - painfree slow fluid range- gave HO Comments Mod verbal/tactile cues for proper positioning michael LS- good response scap retraction Sitting Exercise Name Cues required for chin tuck, to avoid poking chin out with execution of ex Side bilateral Reps/Minutes 5 x5 Comments ed gentle slow fluid engagement, not arms involvement chin tuck Sitting Exercise Name Reviewed HEP Equipment Used good response Reps/Minutes 5 x5 Comments cued small range head nod yes w/CS retraction neutral small fluid pnfree rg Standing Exercises Wall posture Standing Exercise Name Chin tucks against wall- HEP reviewed Equipment Used towel behind head for forward head posture Reps/Minutes 5 x5 - Comments ed apply chin tuck/retraction to neutral Manual Therapy Treatment Soft Tissue Mobilization neck Body Location UT, LS, scalene, pec minor Mobilization Type Myofascial Release,Sustained Pressure,Trigger Point Release ,Other Intensity/Depth Superficial Body Position Hooklying Comments manual and requested feedback for pressure, while discussion of anatomy and postural awareness, small range stretching with good feedback response. Manual Techniques PROM Type Cervical PROM Comments Gentle pain free ROM Self-Care/Home Management Treatment Education Patient Education Home Exercise Program,Pain Management,Safety Other Education Educated patient on modalities at home for pain control and diaphragmatic breathing for relaxation of cervical muscles to decrease tension/pain. Educated pt on self applied STM with tennis ball/ theracane, demonstrated with good feedback. Educated patient on signs of nerve compression. Pt discussed bowel/bladder, worsening incontinence, and loss of sensation, recommended a call into primary care provider cierra for followup with concerns pertaining to bowel/ bladder, prior to her scheduled 03/30 apt. PT-OP-T Assessment and Plan Start: 03/08/23 12:39 Freq: Status: Active Protocol: Document 03/23/23 11:03 (Rec: 03/23/23 13:03 [id number]) Physical Therapy Assessment Goals Three Impairment Significantly impaired cervical ROM Sheet Rock Hanger Goal (LTG) Pt to improve asymptomatic cervical ROM to 35? bilateral lateral flexion and 45? bilateral rotation in order to improve ability to turn her head and look at traffic while driving LTG Duration 05/08/23 Two Impairment Pt experiences bilateral UE tingling in any position other than supine Sheet Rock Hanger Goal (LTG) Pt to demonstrate ability to stand for 30 minutes and wash dishes without any numbness or tingling in her upper extremities. LTG Duration 05/08/23 One Impairment Pt does not have an appropriate home exercise program Short Term Goal (STG) Pt to be independent and compliant with an appropriate HEP 03/13/23: HEP: chin tuck, scap retraction, UT/ LS gentle ROM/ stretching, wall posture. STG Duration 04/07/23 updated 03/13/23 Assessment Summary Assessment Tx emphasis on gentle manual therapy today to decrease pain and muscle tension and increase circulation for healing, palpable decrease in trigger point tension in cervical muscles post tx. Avoided subocciptal area with STM this date due to pt migraine. Plan to assess pt response next session for tolerance. Instructed patient on self application of STM for carryover at home, and discussed modalities for pain. Patient discussed her bowel/ bladder incontinence in today' s session stating it has progressively worsened, she did not feel comfortable talking about it previously, and has just told her daughter about it. Educated patient on nerves and reccommended she call her PCP as soon as possible regarding her increase loss of sensation in bowel/bladder. Pt did not present with saddle area numbness, tingling, or burning . Discussed bowel/bladder issues brought to my attention today with overseeing PT, phone call followup with patient. Physical Therapy Plan Frequency and Duration Frequency of Treatment 2x/Week Plan of Care Start Date 03/08/23 Plan of Care End Date 05/08/23 Therapeutic Interventions Therapeutic Interventions Home Exercise Program,Joint Mobilizations,Manual Therapy, Neuromuscular Re-education, Patient/Caregiver Education, Self-Care/Home Management,Soft Tissue Mobilization, Therapeutic Activities, Therapeutic Exercises Modalities Cold Pack/Ice Massage,Hot Packs,Traction- Mechanical Next Visit Focus/Plan Next Note Type Treatment Note Next Visit Plan REview HEP: chin tuck, scap retraction, UT/ LS gentle ROM/ stretching, wall posture. Next tx: show self STMs, initiated/check response nerve glides for assist reduce UE tingling. POC: Gentle STM, manual traction, cervical strengthening
--- NOTE | 2023-03-30 16:29 | PT.OTN ---
Current Diagnoses Chronic pain syndrome (03/30/23) Spondylosis without myelopathy or radiculopathy, cervical region (03/30/23) Spinal stenosis, cervical region (03/30/23) Physical Therapy Treatment Note PT-OP-A Visit Information Start: 03/08/23 12:39 Freq: Status: Active Protocol: Document 03/30/23 13:20 SW (Rec: 03/30/23 13:52 SW [id number]) Out-Patient Physical Therapy Visit Information Visit Information Visit Type Treatment Note Visit Note Insurance only allows 2 units per visit Visit Start Time 13:00 Visit Stop Time 13:32 Total Visit Minutes 32 Visit Number 4 Number of COMPOSITION WEATHERBOARD INSTALLER Visits 3 PT-OP-B Current Condition Start: 03/08/23 12:39 Freq: Status: Active Protocol: Document 03/08/23 11:05 DCW (Rec: 03/08/23 13:01 DCW [id number]) Current Condition History of Current Condition Onset Date Two year history Current Complaints Cervical pain and stiffness, R shoulder pain, bilateral radicular symptoms History of Current Condition Pt is a 62 year old female with a two year history of neck and shoulder dysfunction. Pt reports that she received a cervical and shoulder MRI one year ago, which showed significant degenerative changes throughout her cervical spine, as well as a right supraspinatus tear and two labral tears. Has undergone PT for the past year on her shoulder at a different clinic, and feels that it's probably as good as it's going to get, but her cervical symptoms have been getting worse, including radicular pain and tingling bilaterally. Pt reports she has gone to both an Ortho on [facility] and to , and was told she is not a candidate for cervical surgery due to her history of heart problems. Pt reports she often has tingling and numbness in her arms, as well as flash headaches, which she never had to deal with before. Pt does relay considerable concern regarding further PT, admits that due to the severity of her MRI results, she is afraid that PT can't help her, and it may even be dangerous for her to perform too much activity. Prior Treatments and Tests Cervical MRI: IMPRESSION: Multiple levels of cervical spine degenerative change are seen, which are worst inferiorly. per Parth Ruelas M.D. on 02/10/2022 Right Shoulder MRI: IMPRESSION: 1. Tendinosis and low to moderate grade articular and bursal surface partial thickness tear involving distal supraspinatus extending to musculotendinous junction. No full-thickness rotator cuff tendon rupture. Distal infraspinatus and subscapularis tendinosis. 2. Moderate to severe glenohumeral joint osteoarthritis and moderate acromioclavicular joint osteoarthritis. No fracture or dislocation. Moderate subacromial subdeltoid bursal fluid with intra-articular loose body measures approximately 9 mm in size. 3. Suggestion of superior anterior labral tear at 12 to 1 o'clock position and anterior-inferior labral tear at 4 to 6 o'clock position. per Darren Harrison M.D. on 2021 Cervical x-ray: IMPRESSION: Cervical spondylitic change with multilevel facet arthropathy and bony foraminal narrowing as described above. per Carmelo Hart M.D. 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 She is frustrated with the constant pain and wants to get to a point where she can control the pain with tylenol. PT-OP-F Manual Assessment Start: 03/08/23 12:39 Freq: Status: Active Protocol: Document 03/08/23 11:05 DCW (Rec: 03/08/23 13:01 DCW [id number]) Manual Assessments Soft Tissue Assessment Soft Tissue Mobility Assessment Moderate tone along right upper trap, right SCM, right scalenes, bilateral suboccipitals with tenderness to palpation 2/4: Pain with wincing Joint Mobility Assessment Joint Mobility Assessment Vertebral hypomobility through cervical spine PT-OP-J Posture/Palpation/Skin Start: 03/08/23 12:39 Freq: Status: Active Protocol: Document 03/08/23 11:05 DCW (Rec: 03/08/23 13:01 DCW [id number]) Posture Evaluation Position Sitting Evaluation View Lateral Head/C-Spine Posture Forward Head T-Spine Posture Increased Kyphosis Shoulder Posture (L) Rounded,(R) Rounded PT-OP-K Range of Motion Start: 03/08/23 12:39 Freq: Status: Active Protocol: Document 03/08/23 11:05 DCW (Rec: 03/08/23 13:01 DCW [id number]) Cervical Spine Range of Motion Cervical Spine Active Degrees Testing Position Sitting Flexion 35 Extension 25 Rotation Left 38 Rotation Right 38 Lateral Flexion Left 13 Lateral Flexion Right 20 ROM Limitations Soft Tissue Tightness,Bony Restriction,Muscle Tone,Pain PT-OP-L Special Tests Start: 03/08/23 12:39 Freq: Status: Active Protocol: Document 03/08/23 11:05 DCW (Rec: 03/08/23 13:01 DCW [id number]) Special Tests Cervical Spine Special Tests Traction Test Results Improvement in symptoms Spurling's Test Test Results Increases radicular symptoms bilaterally Slump Test Results Increases radicular symptoms bilaterally Foraminal Compression Test Results Increases radicular symptoms bilaterally PT-OP-Q Treatments Start: 03/08/23 12:39 Freq: Status: Active Protocol: Document 03/30/23 13:20 SW (Rec: 03/30/23 16:11 SW [id number]) Therapeutic Exercises Supine Exercises chin tuck Reps/Minutes 5 x5 Comments cued slow gentle fluid ROM, not forceful- good feedback response Manual Therapy Treatment Soft Tissue Mobilization neck Body Location R>L UT, LS, scalene, UT, pec minor Mobilization Type Myofascial Release,Sustained Pressure,Trigger Point Release ,Other Intensity/Depth Moderate Body Position Prone Comments manual and requested feedback for pressure Manual Techniques Cupping Type with movement Body Location R shoulder Body Position Prone Comments Deep Prep PT-OP-R Modalities Start: 03/08/23 12:39 Freq: Status: Active Protocol: Document 03/30/23 13:20 SW (Rec: 03/30/23 13:52 SW [id number]) Spinal Traction Traction Treatment Cervical Patient Position Prone Force Applied (Pounds) 10 Intermittent Time On (Seconds) 3 Intermittent Time Off (Seconds) 10 Duration of Treatment (Minutes) 6 Heating Pad Applied No Traction Treatment Comment Tolerated for only a few minutes, second notch, no peripheralization of symptoms PT-OP-T Assessment and Plan Start: 03/08/23 12:39 Freq: Status: Active Protocol: Document 03/30/23 13:20 (Rec: 03/30/23 13:52 [id number]) Physical Therapy Assessment Goals Three Impairment Significantly impaired cervical ROM Automatic Door Mechanic Goal (LTG) Pt to improve asymptomatic cervical ROM to 35? bilateral lateral flexion and 45? bilateral rotation in order to improve ability to turn her head and look at traffic while driving LTG Duration 05/08/23 Two Impairment Pt experiences bilateral UE tingling in any position other than supine Intermediate Goal (LTG) Pt to demonstrate ability to stand for 30 minutes and wash dishes without any numbness or tingling in her upper extremities. LTG Duration 05/08/23 One Impairment Pt does not have an appropriate home exercise program Short Term Goal (STG) Pt to be independent and compliant with an appropriate HEP 03/13/23: HEP: chin tuck, scap retraction, UT/ LS gentle ROM/ stretching, wall posture. STG Duration 04/07/23 updated 03/13/23 Assessment Summary Assessment Pt came into appointment today unable to tolerate exercises d/t pain and headache. Continued manual therapy and added cupping for myofascial release and to increase circulation for healing, good response with some relief reported, plan to assess tolerance next session. Trialed mechanical traction, pt had a low tolerance, no peripheralization of symptoms, but felt light headed briefly , went away post. May be beneficial to trial thermotherapy next session for pain. Physical Therapy Plan Frequency and Duration Frequency of Treatment 2x/Week Plan of Care Start Date 03/08/23 Plan of Care End Date 05/08/23 Therapeutic Interventions Therapeutic Interventions Home Exercise Program,Joint Mobilizations,Manual Therapy, Neuromuscular Re-education, Patient/Caregiver Education, Self-Care/Home Management,Soft Tissue Mobilization, Therapeutic Activities, Therapeutic Exercises Modalities Cold Pack/Ice Massage,Hot Packs,Traction- Mechanical Next Visit Focus/Plan Next Note Type Treatment Note Next Visit Plan REview HEP: chin tuck, scap retraction, UT/ LS gentle ROM/ stretching, wall posture. Next tx: show self STMs, initiated/check response nerve glides for assist reduce UE tingling. POC: Assess pt tolerance to cupping/ manual traction
--- NOTE | 2023-04-11 15:23 | PT.OTN ---
Current Diagnoses Chronic pain syndrome (04/11/23) Spondylosis without myelopathy or radiculopathy, cervical region (04/11/23) Spinal stenosis, cervical region (04/11/23) Physical Therapy Treatment Note PT-OP-A Visit Information Start: 03/08/23 12:39 Freq: Status: Active Protocol: Document 04/11/23 14:45 DCW (Rec: 04/11/23 15:22 DCW [id number]) Out-Patient Physical Therapy Visit Information Visit Information Visit Type Treatment Note Visit Note Shortened visits secondary to insurance unit limitations Visit Start Time 14:45 Visit Stop Time 15:15 Total Visit Minutes 30 Visit Number 5 Number of OPERATIONS LIEUTENANT Visits 0 Evaluation Information Evaluation Date 03/08/23 Precautions Precautions No traction, per pt report from [facility] Neuro visit PT-OP-B Current Condition Start: 03/08/23 12:39 Freq: Status: Active Protocol: Document 03/08/23 11:05 DCW (Rec: 03/08/23 13:01 DCW [id number]) Current Condition History of Current Condition Onset Date Two year history Current Complaints Cervical pain and stiffness, R shoulder pain, bilateral radicular symptoms History of Current Condition Pt is a 62 year old female with a two year history of neck and shoulder dysfunction. Pt reports that she received a cervical and shoulder MRI one year ago, which showed significant degenerative changes throughout her cervical spine, as well as a right supraspinatus tear and two labral tears. Has undergone PT for the past year on her shoulder at a different clinic, and feels that it's probably as good as it's going to get, but her cervical symptoms have been getting worse, including radicular pain and tingling bilaterally. Pt reports she has gone to both an Ortho on [facility] and to , and was told she is not a candidate for cervical surgery due to her history of heart problems. Pt reports she often has tingling and numbness in her arms, as well as flash headaches, which she never had to deal with before. Pt does relay considerable concern regarding further PT, admits that due to the severity of her MRI results, she is afraid that PT can't help her, and it may even be dangerous for her to perform too much activity. Prior Treatments and Tests Cervical MRI: IMPRESSION: Multiple levels of cervical spine degenerative change are seen, which are worst inferiorly. per Parth Ruelas M.D. on 02/10/2022 Right Shoulder MRI: IMPRESSION: 1. Tendinosis and low to moderate grade articular and bursal surface partial thickness tear involving distal supraspinatus extending to musculotendinous junction. No full-thickness rotator cuff tendon rupture. Distal infraspinatus and subscapularis tendinosis. 2. Moderate to severe glenohumeral joint osteoarthritis and moderate acromioclavicular joint osteoarthritis. No fracture or dislocation. Moderate subacromial subdeltoid bursal fluid with intra-articular loose body measures approximately 9 mm in size. 3. Suggestion of superior anterior labral tear at 12 to 1 o'clock position and anterior-inferior labral tear at 4 to 6 o'clock position. per Darren Harrison M.D. on 2021 Cervical x-ray: IMPRESSION: Cervical spondylitic change with multilevel facet arthropathy and bony foraminal narrowing as described above. per Carmelo Hart M.D. on 02/23/2023 Treatment Goals Patient/Caregiver Goals Decrease radicular symptoms Personal Factors Other Personal Factors That May Effect Cervical stenosis, CVA, Therapy/Recovery Fibromyalgia, R/C tear, GH labrum tear, anxiety, depression, Hx Breast Ca, Heart murmur secondary to defect PT-OP-C Subjective Start: 03/08/23 12:39 Freq: Status: Active Protocol: Document 04/11/23 14:45 DCW (Rec: 04/11/23 15:22 DCW [id number]) OP-PT Subjective Patient Comments Patient Comments Pt reports she had a visit with Josefa Tafoya PA-C at [facility], was told she should not have traction of any kind. Notes they would like pt to remain in PT as able, may benefit from focus on core strengthening. PT-OP-F Manual Assessment Start: 03/08/23 12:39 Freq: Status: Active Protocol: Document 03/08/23 11:05 DCW (Rec: 03/08/23 13:01 DCW [id number]) Manual Assessments Soft Tissue Assessment Soft Tissue Mobility Assessment Moderate tone along right upper trap, right SCM, right scalenes, bilateral suboccipitals with tenderness to palpation 2/4: Pain with wincing Joint Mobility Assessment Joint Mobility Assessment Vertebral hypomobility through cervical spine PT-OP-J Posture/Palpation/Skin Start: 03/08/23 12:39 Freq: Status: Active Protocol: Document 03/08/23 11:05 DCW (Rec: 03/08/23 13:01 DCW [id number]) Posture Evaluation Position Sitting Evaluation View Lateral Head/C-Spine Posture Forward Head T-Spine Posture Increased Kyphosis Shoulder Posture (L) Rounded,(R) Rounded PT-OP-K Range of Motion Start: 03/08/23 12:39 Freq: Status: Active Protocol: Document 03/08/23 11:05 DCW (Rec: 03/08/23 13:01 DCW [id number]) Cervical Spine Range of Motion Cervical Spine Active Degrees Testing Position Sitting Flexion 35 Extension 25 Rotation Left 38 Rotation Right 38 Lateral Flexion Left 13 Lateral Flexion Right 20 ROM Limitations Soft Tissue Tightness,Bony Restriction,Muscle Tone,Pain PT-OP-L Special Tests Start: 03/08/23 12:39 Freq: Status: Active Protocol: Document 03/08/23 11:05 DCW (Rec: 03/08/23 13:01 DCW [id number]) Special Tests Cervical Spine Special Tests Traction Test Results Improvement in symptoms Spurling's Test Test Results Increases radicular symptoms bilaterally Slump Test Results Increases radicular symptoms bilaterally Foraminal Compression Test Results Increases radicular symptoms bilaterally PT-OP-Q Treatments Start: 03/08/23 12:39 Freq: Status: Active Protocol: Document 04/11/23 14:45 DCW (Rec: 04/11/23 15:22 DCW [id number]) Therapeutic Exercises Supine Exercises Marching Supine Exercise Name PPT /c TrA - Marching Reps/Minutes 5 hold LTR Supine Exercise Name LTR in Hooklying Standing Exercises Pallof Press Standing Exercise Name Pallof Press Side bilateral Resistance Green Manual Therapy Treatment Soft Tissue Mobilization neck Body Location R>L UT, LS, scalene, UT, pec minor Mobilization Type Myofascial Release,Sustained Pressure,Trigger Point Release ,Other Intensity/Depth Moderate Body Position Prone Comments manual and requested feedback for pressure PT-OP-R Modalities Start: 03/08/23 12:39 Freq: Status: Active Protocol: Document 03/30/23 13:20 SW (Rec: 03/30/23 13:52 SW [id number]) Spinal Traction Traction Treatment Cervical Patient Position Prone Force Applied (Pounds) 10 Intermittent Time On (Seconds) 3 Intermittent Time Off (Seconds) 10 Duration of Treatment (Minutes) 6 Heating Pad Applied No Traction Treatment Comment Tolerated for only a few minutes, second notch, no peripheralization of symptoms PT-OP-T Assessment and Plan Start: 03/08/23 12:39 Freq: Status: Active Protocol: Document 04/11/23 14:45 DCW (Rec: 04/11/23 15:22 DCW [id number]) Physical Therapy Assessment Impairments Impairments Activity Tolerance,Functional Activities,Functional Mobility ,Pain,Posture,ROM,Sensation, Soft Tissue Mobility Goals Three Impairment Significantly impaired cervical ROM Fdc Goal (LTG) Pt to improve asymptomatic cervical ROM to 35? bilateral lateral flexion and 45? bilateral rotation in order to improve ability to turn her head and look at traffic while driving LTG Duration 05/08/23 Two Impairment Pt experiences bilateral UE tingling in any position other than supine Fdc Goal (LTG) Pt to demonstrate ability to stand for 30 minutes and wash dishes without any numbness or tingling in her upper extremities. LTG Duration 05/08/23 One Impairment Pt does not have an appropriate home exercise program Short Term Goal (STG) Pt to be independent and compliant with an appropriate HEP 03/13/23: HEP: chin tuck, scap retraction, UT/ LS gentle ROM/ stretching, wall posture. STG Duration 04/07/23 updated 03/13/23 Assessment Summary Assessment Performed some STM today, working on additional core strengthening. Pt notes PPT/ TrA contraction felt really good on her back, added Pallof Press to HEP. Physical Therapy Plan Frequency and Duration Frequency of Treatment 2x/Week Plan of Care Start Date 03/08/23 Plan of Care End Date 05/08/23 Therapeutic Interventions Therapeutic Interventions Home Exercise Program,Joint Mobilizations,Manual Therapy, Neuromuscular Re-education, Patient/Caregiver Education, Self-Care/Home Management,Soft Tissue Mobilization, Therapeutic Activities, Therapeutic Exercises Modalities Cold Pack/Ice Massage,Hot Packs,Traction- Mechanical Next Visit Focus/Plan Next Note Type Treatment Note Next Visit Plan NO TRACTION Review HEP: chin tuck, scap retraction, UT/ LS gentle ROM/ stretching, wall posture. Next tx: show self STMs, initiated/check response nerve glides for assist reduce UE tingling.
--- NOTE | 2023-04-13 10:38 | PT.OTN ---
Current Diagnoses Chronic pain syndrome (04/13/23) Spondylosis without myelopathy or radiculopathy, cervical region (04/13/23) Spinal stenosis, cervical region (04/13/23) Physical Therapy Treatment Note PT-OP-A Visit Information Start: 03/08/23 12:39 Freq: Status: Active Protocol: Document 04/13/23 10:01 SP (Rec: 04/13/23 10:44 SP [id number]) Out-Patient Physical Therapy Visit Information Visit Information Visit Type Treatment Note Visit Note Shortened visits ( 2units) secondary to insurance unit limitations Visit Start Time 10:01 Visit Stop Time 10:38 Total Visit Minutes 37 Visit Number 6 Number of BIOCHEMIST Visits 1 Evaluation Information Evaluation Date 03/08/23 Precautions Precautions No traction, per pt report from [facility] Neuro visit PT-OP-B Current Condition Start: 03/08/23 12:39 Freq: Status: Active Protocol: Document 03/08/23 11:05 DCW (Rec: 03/08/23 13:01 DCW [id number]) Current Condition History of Current Condition Onset Date Two year history Current Complaints Cervical pain and stiffness, R shoulder pain, bilateral radicular symptoms History of Current Condition Pt is a 62 year old female with a two year history of neck and shoulder dysfunction. Pt reports that she received a cervical and shoulder MRI one year ago, which showed significant degenerative changes throughout her cervical spine, as well as a right supraspinatus tear and two labral tears. Has undergone PT for the past year on her shoulder at a different clinic, and feels that it's probably as good as it's going to get, but her cervical symptoms have been getting worse, including radicular pain and tingling bilaterally. Pt reports she has gone to both an Ortho on [employer] and to , and was told she is not a candidate for cervical surgery due to her history of heart problems. Pt reports she often has tingling and numbness in her arms, as well as flash headaches, which she never had to deal with before. Pt does relay considerable concern regarding further PT, admits that due to the severity of her MRI results, she is afraid that PT can't help her, and it may even be dangerous for her to perform too much activity. Prior Treatments and Tests Cervical MRI: IMPRESSION: Multiple levels of cervical spine degenerative change are seen, which are worst inferiorly. per Parth Ruelas M.D. on 02/10/2022 Right Shoulder MRI: IMPRESSION: 1. Tendinosis and low to moderate grade articular and bursal surface partial thickness tear involving distal supraspinatus extending to musculotendinous junction. No full-thickness rotator cuff tendon rupture. Distal infraspinatus and subscapularis tendinosis. 2. Moderate to severe glenohumeral joint osteoarthritis and moderate acromioclavicular joint osteoarthritis. No fracture or dislocation. Moderate subacromial subdeltoid bursal fluid with intra-articular loose body measures approximately 9 mm in size. 3. Suggestion of superior anterior labral tear at 12 to 1 o'clock position and anterior-inferior labral tear at 4 to 6 o'clock position. per Darren Harrison M.D. on 2021 Cervical x-ray: IMPRESSION: Cervical spondylitic change with multilevel facet arthropathy and bony foraminal narrowing as described above. per Carmelo Hart M.D. on 02/23/2023 Treatment Goals Patient/Caregiver Goals Decrease radicular symptoms Personal Factors Other Personal Factors That May Effect Cervical stenosis, CVA, Therapy/Recovery Fibromyalgia, R/C tear, GH labrum tear, anxiety, depression, Hx Breast Ca, Heart murmur secondary to defect PT-OP-C Subjective Start: 03/08/23 12:39 Freq: Status: Active Protocol: Document 04/13/23 10:01 SP (Rec: 04/13/23 10:44 SP [id number]) OP-PT Subjective Patient Comments Patient Comments Pt reports having headache, still tingling R>L fingers and R UE palm and 4-5th MCPs. Dr Tafoya ordered repeat MRI CS and LS this Sat, 04/20 teleconference to review findings. PT-OP-F Manual Assessment Start: 03/08/23 12:39 Freq: Status: Active Protocol: Document 03/08/23 11:05 DCW (Rec: 03/08/23 13:01 DCW [id number]) Manual Assessments Soft Tissue Assessment Soft Tissue Mobility Assessment Moderate tone along right upper trap, right SCM, right scalenes, bilateral suboccipitals with tenderness to palpation 2/4: Pain with wincing Joint Mobility Assessment Joint Mobility Assessment Vertebral hypomobility through cervical spine PT-OP-J Posture/Palpation/Skin Start: 03/08/23 12:39 Freq: Status: Active Protocol: Document 03/08/23 11:05 DCW (Rec: 03/08/23 13:01 DCW [id number]) Posture Evaluation Position Sitting Evaluation View Lateral Head/C-Spine Posture Forward Head T-Spine Posture Increased Kyphosis Shoulder Posture (L) Rounded,(R) Rounded PT-OP-K Range of Motion Start: 03/08/23 12:39 Freq: Status: Active Protocol: Document 03/08/23 11:05 DCW (Rec: 03/08/23 13:01 DCW [id number]) Cervical Spine Range of Motion Cervical Spine Active Degrees Testing Position Sitting Flexion 35 Extension 25 Rotation Left 38 Rotation Right 38 Lateral Flexion Left 13 Lateral Flexion Right 20 ROM Limitations Soft Tissue Tightness,Bony Restriction,Muscle Tone,Pain PT-OP-L Special Tests Start: 03/08/23 12:39 Freq: Status: Active Protocol: Document 03/08/23 11:05 DCW (Rec: 03/08/23 13:01 DCW [id number]) Special Tests Cervical Spine Special Tests Traction Test Results Improvement in symptoms Spurling's Test Test Results Increases radicular symptoms bilaterally Slump Test Results Increases radicular symptoms bilaterally Foraminal Compression Test Results Increases radicular symptoms bilaterally PT-OP-Q Treatments Start: 03/08/23 12:39 Freq: Status: Active Protocol: Document 04/13/23 10:01 SP (Rec: 04/13/23 10:44 SP [id number]) Therapeutic Exercises Supine Exercises Marching Supine Exercise Name PPT /c TrA - Marching Reps/Minutes 5 hold Comments during manual neck- cued slow pacing level pelvis LTR Supine Exercise Name LTR in Hooklying Reps/Minutes 10 reps R and L Comments during manual neck- cued slow pacing level pelvis Standing Exercises median, ulnar nerve glide Standing Exercise Name manual and standing application Side bilateral Resistance added to HEP Reps/Minutes x5 reps Comments good feedback, modified RUE range Pallof Press Standing Exercise Name Pallof Press Side bilateral Resistance Green Reps/Minutes x10 reps Wall posture Standing Exercise Name Chin tucks against wall- HEP reviewed Equipment Used towel behind head for forward head posture Reps/Minutes 30SH Comments chin tuck neutral, PPT/TA awareness Manual Therapy Treatment Soft Tissue Mobilization neck Body Location R>L UT, LS, scalene, UT, pec minor Mobilization Type Myofascial Release,Sustained Pressure,Trigger Point Release ,Other Intensity/Depth Moderate Body Position Prone Comments manual and requested feedback for pressure, ed self sustained pressure small range UE MWM, good feedback PT-OP-R Modalities Start: 03/08/23 12:39 Freq: Status: Active Protocol: Document 03/30/23 13:20 SW (Rec: 03/30/23 13:52 SW [id number]) Spinal Traction Traction Treatment Cervical Patient Position Prone Force Applied (Pounds) 10 Intermittent Time On (Seconds) 3 Intermittent Time Off (Seconds) 10 Duration of Treatment (Minutes) 6 Heating Pad Applied No Traction Treatment Comment Tolerated for only a few minutes, second notch, no peripheralization of symptoms PT-OP-T Assessment and Plan Start: 03/08/23 12:39 Freq: Status: Active Protocol: Document 04/13/23 10:01 SP (Rec: 04/13/23 10:44 SP [id number]) Physical Therapy Assessment Goals Three Impairment Significantly impaired cervical ROM Finish Molder Goal (LTG) Pt to improve asymptomatic cervical ROM to 35? bilateral lateral flexion and 45? bilateral rotation in order to improve ability to turn her head and look at traffic while driving LTG Duration 05/08/23 Two Impairment Pt experiences bilateral UE tingling in any position other than supine Finish Molder Goal (LTG) Pt to demonstrate ability to stand for 30 minutes and wash dishes without any numbness or tingling in her upper extremities. LTG Duration 05/08/23 One Impairment Pt does not have an appropriate home exercise program Short Term Goal (STG) Pt to be independent and compliant with an appropriate HEP 03/13/23: HEP: chin tuck, scap retraction, UT/ LS gentle ROM/ stretching, wall posture. STG Duration 04/07/23 updated 03/13/23 Assessment Summary Assessment Pt good response to gentle STMs of neck. Good contraction response during core LTR and marching cues maintaintain TA. Initiated median and ulnar nerve glide and reviewed wall posture carryover for CS/TS/LS with good feedback, helps to decrease tingling in fingers as noted when sits more upright at home. Pt did well with provided HOs. Physical Therapy Plan Frequency and Duration Frequency of Treatment 2x/Week Plan of Care Start Date 03/08/23 Plan of Care End Date 05/08/23 Therapeutic Interventions Therapeutic Interventions Home Exercise Program,Joint Mobilizations,Manual Therapy, Neuromuscular Re-education, Patient/Caregiver Education, Self-Care/Home Management,Soft Tissue Mobilization, Therapeutic Activities, Therapeutic Exercises Modalities Cold Pack/Ice Massage,Hot Packs,Traction- Mechanical Next Visit Focus/Plan Next Note Type Treatment Note Next Visit Plan *NO TRACTION* Review HEP: chin tuck, scap retraction, UT/ LS gentle ROM/ stretching, wall posture. Next tx: show self STMs, initiated/check response nerve glides for assist reduce UE tingling.
--- NOTE | 2023-04-17 10:09 | PT-OP ANOTE ---
Pt cancelled due to her designated health aide that drives her is unable to provided transportation today.
--- NOTE | 2023-04-24 10:47 | PT.OTN ---
Current Diagnoses Chronic pain syndrome (04/24/23) Spondylosis without myelopathy or radiculopathy, cervical region (04/24/23) Spinal stenosis, cervical region (04/24/23) Physical Therapy Treatment Note PT-OP-A Visit Information Start: 03/08/23 12:39 Freq: Status: Active Protocol: Document 04/24/23 10:10 SP (Rec: 04/24/23 10:52 SP [id number]) Out-Patient Physical Therapy Visit Information Visit Information Visit Type Treatment Note Visit Note Shortened visits (2units) secondary to insurance unit limitations, 2 more visits approved Visit Start Time 10:10 Visit Stop Time 10:47 Total Visit Minutes 37 Visit Number 7 Number of COLLAR PACKER Visits 2 Evaluation Information Evaluation Date 03/08/23 Precautions Precautions No traction, per pt report from [facility] visit PT-OP-B Current Condition Start: 03/08/23 12:39 Freq: Status: Active Protocol: Document 03/08/23 11:05 DCW (Rec: 03/08/23 13:01 DCW [id number]) Current Condition History of Current Condition Onset Date Two year history Current Complaints Cervical pain and stiffness, R shoulder pain, bilateral radicular symptoms History of Current Condition Pt is a 62 year old female with a two year history of neck and shoulder dysfunction. Pt reports that she received a cervical and shoulder MRI one year ago, which showed significant degenerative changes throughout her cervical spine, as well as a right supraspinatus tear and two labral tears. Has undergone PT for the past year on her shoulder at a different clinic, and feels that it's probably as good as it's going to get, but her cervical symptoms have been getting worse, including radicular pain and tingling bilaterally. Pt reports she has gone to both an Ortho on [place] and to , and was told she is not a candidate for cervical surgery due to her history of heart problems. Pt reports she often has tingling and numbness in her arms, as well as flash headaches, which she never had to deal with before. Pt does relay considerable concern regarding further PT, admits that due to the severity of her MRI results, she is afraid that PT can't help her, and it may even be dangerous for her to perform too much activity. Prior Treatments and Tests Cervical MRI: IMPRESSION: Multiple levels of cervical spine degenerative change are seen, which are worst inferiorly. per Parth Ruelas M.D. on 02/10/2022 Right Shoulder MRI: IMPRESSION: 1. Tendinosis and low to moderate grade articular and bursal surface partial thickness tear involving distal supraspinatus extending to musculotendinous junction. No full-thickness rotator cuff tendon rupture. Distal infraspinatus and subscapularis tendinosis. 2. Moderate to severe glenohumeral joint osteoarthritis and moderate acromioclavicular joint osteoarthritis. No fracture or dislocation. Moderate subacromial subdeltoid bursal fluid with intra-articular loose body measures approximately 9 mm in size. 3. Suggestion of superior anterior labral tear at 12 to 1 o'clock position and anterior-inferior labral tear at 4 to 6 o'clock position. per Darren Harrison M.D. on 2021 Cervical x-ray: IMPRESSION: Cervical spondylitic change with multilevel facet arthropathy and bony foraminal narrowing as described above. per Carmelo Hart M.D. on 02/23/2023 Treatment Goals Patient/Caregiver Goals Decrease radicular symptoms Personal Factors Other Personal Factors That May Effect Cervical stenosis, CVA, Therapy/Recovery Fibromyalgia, R/C tear, GH labrum tear, anxiety, depression, Hx Breast Ca, Heart murmur secondary to defect PT-OP-C Subjective Start: 03/08/23 12:39 Freq: Status: Active Protocol: Document 04/24/23 10:10 SP (Rec: 04/24/23 10:52 SP [id number]) OP-PT Subjective Patient Comments Patient Comments Pt reported has been having migraines and vision blurry and dizziness. She got feedback about her spinal MRI with Dr ray appt since last visit, she reports has degenerative impingement in neck and affecting her R arm. Pt stated physician giving her 2 months to quit smoking before will perform mulitlevel neck surgery and instructed to continue PT for postural support but limit neck mobility. She states thinks the nerve impingement is affecting her vision and finds herself using cane for safety support when needed. PT-OP-F Manual Assessment Start: 03/08/23 12:39 Freq: Status: Active Protocol: Document 03/08/23 11:05 DCW (Rec: 03/08/23 13:01 DCW [id number]) Manual Assessments Soft Tissue Assessment Soft Tissue Mobility Assessment Moderate tone along right upper trap, right SCM, right scalenes, bilateral suboccipitals with tenderness to palpation 2/4: Pain with wincing Joint Mobility Assessment Joint Mobility Assessment Vertebral hypomobility through cervical spine PT-OP-J Posture/Palpation/Skin Start: 03/08/23 12:39 Freq: Status: Active Protocol: Document 03/08/23 11:05 DCW (Rec: 03/08/23 13:01 DCW [id number]) Posture Evaluation Position Sitting Evaluation View Lateral Head/C-Spine Posture Forward Head T-Spine Posture Increased Kyphosis Shoulder Posture (L) Rounded,(R) Rounded PT-OP-K Range of Motion Start: 03/08/23 12:39 Freq: Status: Active Protocol: Document 03/08/23 11:05 DCW (Rec: 03/08/23 13:01 DCW [id number]) Cervical Spine Range of Motion Cervical Spine Active Degrees Testing Position Sitting Flexion 35 Extension 25 Rotation Left 38 Rotation Right 38 Lateral Flexion Left 13 Lateral Flexion Right 20 ROM Limitations Soft Tissue Tightness,Bony Restriction,Muscle Tone,Pain PT-OP-L Special Tests Start: 03/08/23 12:39 Freq: Status: Active Protocol: Document 03/08/23 11:05 DCW (Rec: 03/08/23 13:01 DCW [id number]) Special Tests Cervical Spine Special Tests Traction Test Results Improvement in symptoms Spurling's Test Test Results Increases radicular symptoms bilaterally Slump Test Results Increases radicular symptoms bilaterally Foraminal Compression Test Results Increases radicular symptoms bilaterally PT-OP-Q Treatments Start: 03/08/23 12:39 Freq: Status: Active Protocol: Document 04/24/23 10:10 SP (Rec: 04/24/23 10:52 SP [id number]) Therapeutic Exercises Supine Exercises chin tuck Reps/Minutes 5 x5 Comments cued slow gentle fluid ROM, not forceful- good feedback response Sitting Exercises scap retraction Sitting Exercise Name Cues required for chin tuck, to avoid poking chin out with execution of ex Side bilateral Reps/Minutes 5 x5 Comments ed gentle slow fluid engagement, not arms involvement chin tuck Sitting Exercise Name Reviewed HEP Equipment Used good response Reps/Minutes 5 x5 Comments cued small range head nod yes w/CS retraction neutral small fluid pnfree rg Standing Exercises shld ext, rows Standing Exercise Name added to HEP Resistance TB #2 orange rows, #1 peach ext Pallof Press Standing Exercise Name Hold 04/24 due to reports irritates her R shld Wall posture Standing Exercise Name Chin tucks against wall-HEP reviewed Equipment Used towel behind head for forward head posture Reps/Minutes 30SH x2 Comments chin tuck neutral, PPT/TA awareness, able incorporate arms at side palm fwd Manual Therapy Treatment Soft Tissue Mobilization neck Body Location R UT, LS, pec minor Mobilization Type Myofascial Release,Sustained Pressure,Trigger Point Release ,Other Intensity/Depth Moderate Body Position Hooklying Comments manual and provided feedback on pressure, ed self sustained pressure small range UE MWM. She has a theracane at home, reviewed how can use self massage theracane and ball on wall trap, post scap. PT-OP-R Modalities Start: 03/08/23 12:39 Freq: Status: Active Protocol: Document 03/30/23 13:20 SW (Rec: 03/30/23 13:52 SW [id number]) Spinal Traction Traction Treatment Cervical Patient Position Prone Force Applied (Pounds) 10 Intermittent Time On (Seconds) 3 Intermittent Time Off (Seconds) 10 Duration of Treatment (Minutes) 6 Heating Pad Applied No Traction Treatment Comment Tolerated for only a few minutes, second notch, no peripheralization of symptoms PT-OP-T Assessment and Plan Start: 03/08/23 12:39 Freq: Status: Active Protocol: Document 04/24/23 10:10 SP (Rec: 04/24/23 10:52 SP [id number]) Physical Therapy Assessment Goals Three Impairment Significantly impaired cervical ROM 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 bilateral lateral flexion and 45? bilateral rotation in order to improve ability to turn her head and look at traffic while driving LTG Duration 05/08/23 Two Impairment Pt experiences bilateral UE tingling in any position other than supine [facility] Goal (LTG) Pt to demonstrate ability to stand for 30 minutes and wash dishes without any numbness or tingling in her upper extremities. LTG Duration 05/08/23 One Impairment Pt does not have an appropriate home exercise program Short Term Goal (STG) Pt to be independent and compliant with an appropriate HEP 03/13/23: HEP: chin tuck, scap retraction, UT/ LS gentle ROM/ stretching, wall posture. STG Duration 04/07/23 updated 03/13/23 Assessment Summary Assessment Pt responded well to manual and review scap retraction and chin tuck with posture seated Min cues for elongated posture. Added resisted shld ext and rows light resistance and wall posture review. She states end tx I don't feel as tight and shoulders more relaxed back, I think these band exercises are going to help. Physical Therapy Plan Frequency and Duration Frequency of Treatment 2x/Week Plan of Care Start Date 03/08/23 Plan of Care End Date 05/08/23 Therapeutic Interventions Therapeutic Interventions Home Exercise Program,Joint Mobilizations,Manual Therapy, Neuromuscular Re-education, Patient/Caregiver Education, Self-Care/Home Management,Soft Tissue Mobilization, Therapeutic Activities, Therapeutic Exercises Modalities Cold Pack/Ice Massage,Hot Packs,Traction- Mechanical Next Visit Focus/Plan Next Note Type Treatment Note Next Visit Plan *NO TRACTION* 2 UNIT Tx (only 2 left approved) Review HEP: chin tuck, scap retraction, resisted shld ext/ rows and wall posture. Next tx: show self STMs, initiated/check response nerve glides for assist reduce UE tingling.
--- NOTE | 2023-04-27 10:41 | PT.OTN ---
Current Diagnoses Chronic pain syndrome (04/27/23) Spondylosis without myelopathy or radiculopathy, cervical region (04/27/23) Spinal stenosis, cervical region (04/27/23) Physical Therapy Treatment Note PT-OP-A Visit Information Start: 03/08/23 12:39 Freq: Status: Active Protocol: Document 04/27/23 10:18 DCW (Rec: 04/27/23 10:41 DCW [id number]) Out-Patient Physical Therapy Visit Information Visit Information Visit Type Discharge Summary Visit Start Time 10:18 Visit Stop Time 10:38 Total Visit Minutes 20 Visit Number 8 Number of DECK LID FITTER Visits 0 Evaluation Information Evaluation Date 03/08/23 Precautions Precautions No traction, per pt report from [facility] visit PT-OP-B Current Condition Start: 03/08/23 12:39 Freq: Status: Active Protocol: Document 03/08/23 11:05 DCW (Rec: 03/08/23 13:01 DCW [id number]) Current Condition History of Current Condition Onset Date Two year history Current Complaints Cervical pain and stiffness, R shoulder pain, bilateral radicular symptoms History of Current Condition Pt is a 62 year old female with a two year history of neck and shoulder dysfunction. Pt reports that she received a cervical and shoulder MRI one year ago, which showed significant degenerative changes throughout her cervical spine, as well as a right supraspinatus tear and two labral tears. Has undergone PT for the past year on her shoulder at a different clinic, and feels that it's probably as good as it's going to get, but her cervical symptoms have been getting worse, including radicular pain and tingling bilaterally. Pt reports she has gone to both an Ortho on [facility] and to , and was told she is not a candidate for cervical surgery due to her history of heart problems. Pt reports she often has tingling and numbness in her arms, as well as flash headaches, which she never had to deal with before. Pt does relay considerable concern regarding further PT, admits that due to the severity of her MRI results, she is afraid that PT can't help her, and it may even be dangerous for her to perform too much activity. Prior Treatments and Tests Cervical MRI: IMPRESSION: Multiple levels of cervical spine degenerative change are seen, which are worst inferiorly. per [place] HerringD. on 02/10/2022 Right Shoulder MRI: IMPRESSION: 1. Tendinosis and low to moderate grade articular and bursal surface partial thickness tear involving distal supraspinatus extending to musculotendinous junction. No full-thickness rotator cuff tendon rupture. Distal infraspinatus and subscapularis tendinosis. 2. Moderate to severe glenohumeral joint osteoarthritis and moderate acromioclavicular joint osteoarthritis. No fracture or dislocation. Moderate subacromial subdeltoid bursal fluid with intra-articular loose body measures approximately 9 mm in size. 3. Suggestion of superior anterior labral tear at 12 to 1 o'clock position and anterior-inferior labral tear at 4 to 6 o'clock position. per Darren Harrison M.D. on 2021 Cervical x-ray: IMPRESSION: Cervical spondylitic change with multilevel facet arthropathy and bony foraminal narrowing as described above. per Carmelo Hart M.D. on 02/23/2023 Treatment Goals Patient/Caregiver Goals Decrease radicular symptoms Personal Factors Other Personal Factors That May Effect Cervical stenosis, CVA, Therapy/Recovery Fibromyalgia, R/C tear, GH labrum tear, anxiety, depression, Hx Breast Ca, Heart murmur secondary to defect PT-OP-C Subjective Start: 03/08/23 12:39 Freq: Status: Active Protocol: Document 04/27/23 10:18 DCW (Rec: 04/27/23 10:41 DCW [id number]) OP-PT Subjective Patient Comments Patient Comments Pt reports she is in the process of scheduling to meet with ortho about a cervical fusion. PT-OP-F Manual Assessment Start: 03/08/23 12:39 Freq: Status: Active Protocol: Document 03/08/23 11:05 DCW (Rec: 03/08/23 13:01 DCW [id number]) Manual Assessments Soft Tissue Assessment Soft Tissue Mobility Assessment Moderate tone along right upper trap, right SCM, right scalenes, bilateral suboccipitals with tenderness to palpation 2/4: Pain with wincing Joint Mobility Assessment Joint Mobility Assessment Vertebral hypomobility through cervical spine PT-OP-J Posture/Palpation/Skin Start: 03/08/23 12:39 Freq: Status: Active Protocol: Document 03/08/23 11:05 DCW (Rec: 03/08/23 13:01 DCW [id number]) Posture Evaluation Position Sitting Evaluation View Lateral Head/C-Spine Posture Forward Head T-Spine Posture Increased Kyphosis Shoulder Posture (L) Rounded,(R) Rounded PT-OP-K Range of Motion Start: 03/08/23 12:39 Freq: Status: Active Protocol: Document 04/27/23 10:18 DCW (Rec: 04/27/23 10:41 DCW [id number]) Cervical Spine Range of Motion Cervical Spine Active Degrees Testing Position Sitting Flexion 40 Extension 35 Rotation Left 44 Rotation Right 50 Lateral Flexion Left 30 Lateral Flexion Right 20 ROM Limitations Soft Tissue Tightness,Bony Restriction,Muscle Tone,Pain PT-OP-L Special Tests Start: 03/08/23 12:39 Freq: Status: Active Protocol: Document 03/08/23 11:05 DCW (Rec: 03/08/23 13:01 DCW [id number]) Special Tests Cervical Spine Special Tests Traction Test Results Improvement in symptoms Spurling's Test Test Results Increases radicular symptoms bilaterally Slump Test Results Increases radicular symptoms bilaterally Foraminal Compression Test Results Increases radicular symptoms bilaterally PT-OP-Q Treatments Start: 03/08/23 12:39 Freq: Status: Active Protocol: Document 04/27/23 10:18 DCW (Rec: 04/27/23 10:41 DCW [id number]) Self-Care/Home Management Treatment Activities Self-Care/Home Management Activities Discussed likely rehab process s/p surgery and importance of continuing strengthening before surgery PT-OP-R Modalities Start: 03/08/23 12:39 Freq: Status: Active Protocol: Document 03/30/23 13:20 SW (Rec: 03/30/23 13:52 SW [id number]) Spinal Traction Traction Treatment Cervical Patient Position Prone Force Applied (Pounds) 10 Intermittent Time On (Seconds) 3 Intermittent Time Off (Seconds) 10 Duration of Treatment (Minutes) 6 Heating Pad Applied No Traction Treatment Comment Tolerated for only a few minutes, second notch, no peripheralization of symptoms PT-OP-T Assessment and Plan Start: 03/08/23 12:39 Freq: Status: Active Protocol: Document 04/27/23 10:18 DCW (Rec: 04/27/23 10:41 DCW [id number]) Physical Therapy Assessment Goals Three Impairment Significantly impaired cervical ROM Tumble [employer]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 bilateral lateral flexion and 45? bilateral rotation in order to improve ability to turn her head and look at traffic while driving LTG Duration 05/08/23 Improving Two Impairment Pt experiences bilateral UE tingling in any position other than supine [facility] Goal (LTG) Pt to demonstrate ability to stand for 30 minutes and wash dishes without any numbness or tingling in her upper extremities. LTG Duration 05/08/23 One Impairment Pt does not have an appropriate home exercise program Short Term Goal (STG) Pt to be independent and compliant with an appropriate HEP 03/13/23: HEP: chin tuck, scap retraction, UT/ LS gentle ROM/ stretching, wall posture. STG Duration Met Assessment Summary Assessment Pt and therapist agreeable to discharge at this time, pt planning on going forward with surgical fusion, unlikely to benefit much from single remaining authorized visit. Physical Therapy Plan Frequency and Duration Frequency of Treatment 2x/Week Plan of Care Start Date 03/08/23 Plan of Care End Date 05/08/23 Therapeutic Interventions Therapeutic Interventions Home Exercise Program,Joint Mobilizations,Manual Therapy, Neuromuscular Re-education, Patient/Caregiver Education, Self-Care/Home Management,Soft Tissue Mobilization, Therapeutic Activities, Therapeutic Exercises Modalities Cold Pack/Ice Massage,Hot Packs,Traction- Mechanical Next Visit Focus/Plan Next Note Type Treatment Note Next Visit Plan *NO TRACTION* 2 UNIT Tx (only 2 left approved) Review HEP: chin tuck, scap retraction, resisted shld ext/ rows and wall posture. Next tx: show self STMs, initiated/check response nerve glides for assist reduce UE tingling.
--- NOTE | 2023-04-27 10:46 | PT.OPDS ---
Current Diagnoses Chronic pain syndrome (04/27/23) Spondylosis without myelopathy or radiculopathy, cervical region (04/27/23) Spinal stenosis, cervical region (04/27/23) Visit Care Team Role Provider Type Josef Zendejas MD Attending Provider Physician Family Provider Primary Care Provider Referring Provider Specialty: Family Practice Address: [address] [place] [address] Email: [email or web address] Visit Number Visit Number 8 Discharge Summary PT-OP-B Current Condition Start: 03/08/23 12:39 Freq: Status: Active Protocol: Document 03/08/23 11:05 DCW (Rec: 03/08/23 13:01 DCW [id number]) Current Condition History of Current Condition Onset Date Two year history Current Complaints Cervical pain and stiffness, R shoulder pain, bilateral radicular symptoms History of Current Condition Pt is a 62 year old female with a two year history of neck and shoulder dysfunction. Pt reports that she received a cervical and shoulder MRI one year ago, which showed significant degenerative changes throughout her cervical spine, as well as a right supraspinatus tear and two labral tears. Has undergone PT for the past year on her shoulder at a different clinic, and feels that it's probably as good as it's going to get, but her cervical symptoms have been getting worse, including radicular pain and tingling bilaterally. Pt reports she has gone to both an Ortho on [facility] and to , and was told she is not a candidate for cervical surgery due to her history of heart problems. Pt reports she often has tingling and numbness in her arms, as well as flash headaches, which she never had to deal with before. Pt does relay considerable concern regarding further PT, admits that due to the severity of her MRI results, she is afraid that PT can't help her, and it may even be dangerous for her to perform too much activity. Prior Treatments and Tests Cervical MRI: IMPRESSION: Multiple levels of cervical spine degenerative change are seen, which are worst inferiorly. per Parth Ruelas M.D. on 02/10/2022 Right Shoulder MRI: IMPRESSION: 1. Tendinosis and low to moderate grade articular and bursal surface partial thickness tear involving distal supraspinatus extending to musculotendinous junction. No full-thickness rotator cuff tendon rupture. Distal infraspinatus and subscapularis tendinosis. 2. Moderate to severe glenohumeral joint osteoarthritis and moderate acromioclavicular joint osteoarthritis. No fracture or dislocation. Moderate subacromial subdeltoid bursal fluid with intra-articular loose body measures approximately 9 mm in size. 3. Suggestion of superior anterior labral tear at 12 to 1 o'clock position and anterior-inferior labral tear at 4 to 6 o'clock position. per Darren Harrison M.D. on 2021 Cervical x-ray: IMPRESSION: Cervical spondylitic change with multilevel facet arthropathy and bony foraminal narrowing as described above. per Carmelo Hart M.D. on 02/23/2023 Treatment Goals Patient/Caregiver Goals Decrease radicular symptoms Personal Factors Other Personal Factors That May Effect Cervical stenosis, CVA, Therapy/Recovery Fibromyalgia, R/C tear, GH labrum tear, anxiety, depression, Hx Breast Ca, Heart murmur secondary to defect PT-OP-C Subjective Start: 03/08/23 12:39 Freq: Status: Active Protocol: Document 04/27/23 10:18 DCW (Rec: 04/27/23 10:41 DCW [id number]) OP-PT Subjective Patient Comments Patient Comments Pt reports she is in the process of scheduling to meet with ortho about a cervical fusion. PT-OP-F Manual Assessment Start: 03/08/23 12:39 Freq: Status: Active Protocol: Document 03/08/23 11:05 DCW (Rec: 03/08/23 13:01 DCW [id number]) Manual Assessments Soft Tissue Assessment Soft Tissue Mobility Assessment Moderate tone along right upper trap, right SCM, right scalenes, bilateral suboccipitals with tenderness to palpation 2/4: Pain with wincing Joint Mobility Assessment Joint Mobility Assessment Vertebral hypomobility through cervical spine PT-OP-J Posture/Palpation/Skin Start: 03/08/23 12:39 Freq: Status: Active Protocol: Document 03/08/23 11:05 DCW (Rec: 03/08/23 13:01 DCW [id number]) Posture Evaluation Position Sitting Evaluation View Lateral Head/C-Spine Posture Forward Head T-Spine Posture Increased Kyphosis Shoulder Posture (L) Rounded,(R) Rounded PT-OP-K Range of Motion Start: 03/08/23 12:39 Freq: Status: Active Protocol: Document 04/27/23 10:18 DCW (Rec: 04/27/23 10:41 DCW [id number]) Cervical Spine Range of Motion Cervical Spine Active Degrees Testing Position Sitting Flexion 40 Extension 35 Rotation Left 44 Rotation Right 50 Lateral Flexion Left 30 Lateral Flexion Right 20 ROM Limitations Soft Tissue Tightness,Bony Restriction,Muscle Tone,Pain PT-OP-L Special Tests Start: 03/08/23 12:39 Freq: Status: Active Protocol: Document 03/08/23 11:05 DCW (Rec: 03/08/23 13:01 DCW [id number]) Special Tests Cervical Spine Special Tests Traction Test Results Improvement in symptoms Spurling's Test Test Results Increases radicular symptoms bilaterally Slump Test Results Increases radicular symptoms bilaterally Foraminal Compression Test Results Increases radicular symptoms bilaterally PT-OP-T Assessment and Plan Start: 03/08/23 12:39 Freq: Status: Active Protocol: Document 04/27/23 10:18 DCW (Rec: 04/27/23 10:41 DCW [id number]) Physical Therapy Assessment Goals Three Impairment Significantly impaired cervical ROM Custodial Goal (LTG) Pt to improve asymptomatic cervical ROM to 35? bilateral lateral flexion and 45? bilateral rotation in order to improve ability to turn her head and look at traffic while driving LTG Duration 05/08/23 Improving Two Impairment Pt experiences bilateral UE tingling in any position other than supine Custodial Goal (LTG) Pt to demonstrate ability to stand for 30 minutes and wash dishes without any numbness or tingling in her upper extremities. LTG Duration 05/08/23 One Impairment Pt does not have an appropriate home exercise program Short Term Goal (STG) Pt to be independent and compliant with an appropriate HEP 03/13/23: HEP: chin tuck, scap retraction, UT/ LS gentle ROM/ stretching, wall posture. STG Duration Met Assessment Summary Assessment Pt and therapist agreeable to discharge at this time, pt planning on going forward with surgical fusion, unlikely to benefit much from single remaining authorized visit. Physical Therapy Plan Frequency and Duration Frequency of Treatment 2x/Week Plan of Care Start Date 03/08/23 Plan of Care End Date 05/08/23 Therapeutic Interventions Therapeutic Interventions Home Exercise Program,Joint Mobilizations,Manual Therapy, Neuromuscular Re-education, Patient/Caregiver Education, Self-Care/Home Management,Soft Tissue Mobilization, Therapeutic Activities, Therapeutic Exercises Modalities Cold Pack/Ice Massage,Hot Packs,Traction- Mechanical Next Visit Focus/Plan Next Note Type Treatment Note Next Visit Plan *NO TRACTION* 2 UNIT Tx (only 2 left approved) Review HEP: chin tuck, scap retraction, resisted shld ext/ rows and wall posture. Next tx: show self STMs, initiated/check response nerve glides for assist reduce UE tingling.
--- NOTE | 2023-04-28 09:09 | PT-OP ANOTE ---
Spoke with pt over the phone regarding requirements for return to PT post-op. Pt informed that her surgeon will need to fill out an Exception to Rule and submit to insurance. Pt noted understanding and notes she will speak to her surgeon at her next appointment, Jun 08, 2023.
== END 2023-04-28 10:57 | disposition home or self-care (01) ==
LOC: PHYS 10:15
PROVIDERS: Family Provider Family Medicine; PCP Family Medicine; Referring Provider Family Medicine; Visit Provider Family Medicine
DX: G89.4 Chronic pain syndrome (principal); M48.02 Spinal stenosis, cervical region; M47.812 Spondylosis without myelopathy or radiculopathy, cervical region
CPT/HCPCS: 97110; 97140; 97163; 97535

== ENCOUNTER → 2024-02-01 09:50 | Outpatient (CLI) | payer OTHER, MEDICAID, SELFPAY ==
[2024-02-01 10:25] LABS: Add Manual Diff / Slide Review NO; Basophils Absolute Auto 100 /uL (0-100); Basophils Percent Auto 0.9 % (0-2); Eosinophils Absolute Auto 200 /uL (0-450); Eosinophils Percent Auto 3.3 % (2-4); Hematocrit 37.4 % (36-46); Hemoglobin 12.8 g/dL (12.0-16.0); Lymphocytes Absolute Auto 2000 /uL (1100-4500); Lymphocytes Percent Auto 30.6 % (25-40); Mean Corpuscular HGB Conc 34.3 % (30-36); Mean Corpuscular Hemoglobin 33.1 PG (26-34); Mean Corpuscular Volume 96.4 fL (80-100); Monocytes Absolute Auto 300 /uL (0-900); Monocytes Percent Auto 5.1 % (3-14); Neutrophils Absolute Auto 4000 /uL (1500-7000); Neutrophils Percent Auto 60.1 % (50-75); Platelet Count 210 X10^3/uL (150-400); Red Blood Cell Count 3.88 X10^6/uL (4.0-5.2); Red Cell Distribution Width 13.3 % (11.6-14.8); White Blood Cell Count 6.7 X10^3/uL (4.5-11.0)
[2024-02-01 20:18] LABS: Alanine Aminotransferase 18 IU/L (<35); Albumin 3.7 g/dL (3.5-5.0); Albumin Globulin Ratio 1.4 (1.0-2.8); Alkaline Phosphatase 82 U/L (38-126); Aspartate Aminotransferase 25 IU/L (14-36); BUN Creatinine Ratio 9.9 (6-22); Bilirubin Total 0.4 mg/dL (0.2-1.3); Blood Urea Nitrogen 9 mg/dL (7-17); Calcium 9.3 mg/dL (8.4-10.2); Carbon Dioxide 32 mmol/L (22-32); Chloride 104 mmol/L (98-107); Cholesterol 115 mg/dL (140-199); Estimated Glomerular Filt Rate > 60 mL/min (>60); Globulin 2.6 g/dL (1.7-4.1); Glucose 93 mg/dL (80-110); HDL Cholesterol 50 mg/dL (40-60); HEMOLYSIS < 15 (0-50); LDL Cholesterol Calculated 48 mg/dL (<100); Potassium 3.6 mmol/L (3.4-5.1); Sodium 139 mmol/L (137-145); Total Protein 6.3 g/dL (6.3-8.2); Triglycerides 84 mg/dL (35-150)
[2024-02-01 20:48] LABS: Creatinine Urine Random 316.84 mg/dL
[2024-02-01 20:52] LABS: Microalbumin Urine Random 2.6 mg/dL (0-1.6)
[2024-02-02 13:57] LABS: TSH w/ Reflex to FT4 0.92 uIU/mL (0.47-4.68)
== END ==
PROVIDERS: Family Provider Family Medicine; PCP Family Medicine; Referring Provider Family Medicine; Visit Provider Family Medicine
DX: M47.812 Spondylosis without myelopathy or radiculopathy, cervical region (principal); M48.02 Spinal stenosis, cervical region; G89.4 Chronic pain syndrome; Z86.010 Personal history of colon polyps; I10 Essential (primary) hypertension
CPT/HCPCS: 36415; 80053; 80061; 82043; 82570; 84443; 85025

== ENCOUNTER 2024-07-08 12:20 | Emergency (ER) | payer OTHER, MEDICAID, SELFPAY ==
[2024-07-08 12:52] VITALS: BP 170/75; PULSE 68; RESP 14; TEMP 36.8; O2SAT 96; BMI 34.2
--- NOTE | 2024-07-08 14:22 | PC.NURSE ---
LWBS: Registration staff reported to this RN that patient came to her in lobby and stated that she was going to leave ER prior to being roomed and evaluated. Patient stated that she has appointment with PCP tomorrow and will be seen then. Patient was ambulatory exiting ER lobby per registration staff at approximately 1415.
== END 2024-07-08 14:15 | disposition left against medical advice (07) ==
PROVIDERS: Emergency Provider Emergency Medicine; Family Provider Family Medicine; PCP Family Medicine
CPT/HCPCS: 99281

== ENCOUNTER → 2024-07-17 11:45 | Outpatient (CLI) | payer OTHER, MEDICAID, SELFPAY ==
[2024-07-17 12:47] LABS: Appearance Urine UA CLEAR; Bilirubin Urine UA NEGATIVE (NEGATIVE); Color Urine UA YELLOW; Glucose Urine UA NEGATIVE (Negative); Ketones Urine UA TRACE (NEGATIVE); Leukocyte Esterase Urine UA TRACE (NEGATIVE); Nitrite Urine UA NEGATIVE (Negative); Occult Blood Urine UA NEGATIVE (Negative); Protein Urine UA NEGATIVE (Negative); Urobilinogen Urine UA 0.2 E.U./dL (0.2)
[2024-07-17 12:49] LABS: pH Urine UA 5.5 (4.5-8.0)
[2024-07-17 12:54] LABS: RBC Urine 0-1/HPF (0-5/HPF); Urine Volume 10mL (spun); WBC Urine 1-5/HPF (0-5/HPF)
[2024-07-17 12:55] LABS: Bacteria Urine Moderate (10-30); Culture Indicated Urine Cult Not Indicated; Mucus Urine 1+ (Negative); Squamous Epithelial Cell Urine >30 /HPF (0-5/HPF)
[2024-07-17 12:56] LABS: Add Manual Diff / Slide Review NO; Basophils Absolute Auto 100 /uL (0-100); Basophils Percent Auto 0.8 % (0-2); Eosinophils Absolute Auto 200 /uL (0-450); Eosinophils Percent Auto 2.1 % (2-4); Hematocrit 39.1 % (36-46); Lymphocytes Absolute Auto 2200 /uL (1100-4500); Lymphocytes Percent Auto 29.6 % (25-40); Mean Corpuscular HGB Conc 33.3 % (30-36); Mean Corpuscular Hemoglobin 31.2 PG (26-34); Mean Corpuscular Volume 93.7 fL (80-100); Monocytes Absolute Auto 600 /uL (0-900); Monocytes Percent Auto 7.7 % (3-14); Neutrophils Absolute Auto 4500 /uL (1500-7000); Neutrophils Percent Auto 59.8 % (50-75); Platelet Count 285 X10^3/uL (150-400); Red Blood Cell Count 4.17 X10^6/uL (4.0-5.2); Red Cell Distribution Width 14.4 % (11.6-14.8); White Blood Cell Count 7.6 X10^3/uL (4.5-11.0)
[2024-07-17 13:12] LABS: Alanine Aminotransferase 20 IU/L (<35); Albumin Globulin Ratio 1.3 (1.0-2.8); Alkaline Phosphatase 104 U/L (38-126); Aspartate Aminotransferase 36 IU/L (14-36); BUN Creatinine Ratio 13.1 (6-22); Bilirubin Total 0.3 mg/dL (0.2-1.3); Blood Urea Nitrogen 11 mg/dL (7-17); C-Reactive Protein Quant < 0.5 mg/dL (<1.0); Calcium 9.8 mg/dL (8.4-10.2); Carbon Dioxide 28 mmol/L (22-32); Chloride 107 mmol/L (98-107); Estimated Glomerular Filt Rate > 60 mL/min (>60); Globulin 3.1 g/dL (1.7-4.1); Glucose 86 mg/dL (80-110); HEMOLYSIS < 15 (0-50); Potassium 4.3 mmol/L (3.4-5.1); Sodium 137 mmol/L (137-145); Total Protein 7.1 g/dL (6.3-8.2)
[2024-07-17 13:13] LABS: Rheumatoid Factor < 8.6 IU/mL (<12.0)
[2024-07-17 13:28] LABS: Erythrocyte Sedimentation Rate 16 MM/HR (0-20)
[2024-07-17 13:40] LABS: TSH w/ Reflex to FT4 4.47 uIU/mL (0.47-4.68)
[2024-07-19 22:09] LABS: ANA Screen, IFA Negative (.)
== END ==
PROVIDERS: Family Provider Family Medicine; PCP Family Medicine; Referring Provider Family Medicine; Visit Provider Family Medicine
DX: M47.812 Spondylosis without myelopathy or radiculopathy, cervical region (principal); M48.02 Spinal stenosis, cervical region; G89.4 Chronic pain syndrome; M25.561 Pain in right knee; M25.562 Pain in left knee; M25.461 Effusion, right knee; M25.462 Effusion, left knee; Z95.2 Presence of prosthetic heart valve; I10 Essential (primary) hypertension; Z86.0100 Personal history of colon polyps, unspecified
CPT/HCPCS: 36415; 80053; 81001; 84443; 85025; 85651; 86038; 86140; 86430

== ENCOUNTER 2024-08-08 12:30 | Outpatient (RCR) | payer OTHER, MEDICAID, SELFPAY | END 2024-08-08 14:30 | LOC: CAR 12:30 | PROVIDERS: Family Provider Family Medicine; PCP Family Medicine; Referring Provider Family Medicine; Visit Provider Family Medicine | DX: Z95.2 Presence of prosthetic heart valve (principal); I35.0 Nonrheumatic aortic (valve) stenosis | CPT/HCPCS: 93798 ==

== ENCOUNTER 2024-08-19 12:53 | Emergency (ER) | payer OTHER, MEDICAID, SELFPAY ==
[2024-08-19] VITALS (19 sets, daily range): BP systolic 127–186; BP diastolic 56–80; PULSE 53–72; RESP 16–18; TEMP 36.3–36.7; O2SAT 82–99; BMI 34.4
--- NOTE | 2024-08-19 13:15 | DI.RAD.S_ITS ---
PROCEDURE: XR CHEST 1V INDICATIONS: suspected sepsis TECHNIQUE: One view of the chest was acquired. COMPARISON: [facility], CR, XR CHEST 1V, 05/03/2021, 10:59. FINDINGS: Surgical changes and devices: Right axillary clips. Interval midline sternotomy. Lungs and pleura: Lungs are clear. No pleural effusions or pneumothorax. Mediastinum: Mediastinal contours appear normal. Heart size is normal. Bones and chest wall: No suspicious bony lesions. Overlying soft tissues appear unremarkable. IMPRESSION: No acute cardiopulmonary abnormality is seen. Dictated by: Carmelo Hart M.D. on 08/19/2024 at 13:49 Approved by: Carmelo Hart M.D. on 08/19/2024 at 13:50
[2024-08-19] MEDS: SODIUM CHLORIDE 0.9% 1,000 ML 1000 ML IV (13:42)
[2024-08-19 13:51] LABS: Add Manual Diff / Slide Review NO; Basophils Absolute Auto 100 /uL (0-100); Basophils Percent Auto 1.1 % (0-2); Eosinophils Absolute Auto 200 /uL (0-450); Eosinophils Percent Auto 2.2 % (2-4); Hematocrit 40.5 % (36-46); Hemoglobin 13.2 g/dL (12.0-16.0); Lymphocytes Absolute Auto 2200 /uL (1100-4500); Lymphocytes Percent Auto 32.2 % (25-40); Mean Corpuscular HGB Conc 32.5 % (30-36); Mean Corpuscular Hemoglobin 30.5 PG (26-34); Mean Corpuscular Volume 93.6 fL (80-100); Monocytes Absolute Auto 400 /uL (0-900); Monocytes Percent Auto 5.6 % (3-14); Neutrophils Absolute Auto 4000 /uL (1500-7000); Neutrophils Percent Auto 58.9 % (50-75); Platelet Count 264 X10^3/uL (150-400); Red Blood Cell Count 4.32 X10^6/uL (4.0-5.2); Red Cell Distribution Width 14.7 % (11.6-14.8); White Blood Cell Count 6.8 X10^3/uL (4.5-11.0)
[2024-08-19 13:56] LABS: Urine Volume 10mL (spun)
[2024-08-19 14:01] LABS: Bacteria Urine None Seen; Culture Indicated Urine Specimen Cultured; RBC Urine None Seen (0-5/HPF); Squamous Epithelial Cell Urine 5-10 /HPF (0-5/HPF); WBC Urine 1-5/HPF (0-5/HPF)
[2024-08-19 14:01] LABS: PTT Partial Thromboplastin Tim 49 SECONDS (25.1-36.5)
[2024-08-19 14:02] LABS: Alanine Aminotransferase 32 IU/L (<35); Albumin 4.1 g/dL (3.5-5.0); Albumin Globulin Ratio 1.4 (1.0-2.8); Alkaline Phosphatase 120 U/L (38-126); Aspartate Aminotransferase 39 IU/L (14-36); BUN Creatinine Ratio 13.2 (6-22); Bilirubin Total 0.4 mg/dL (0.2-1.3); Blood Urea Nitrogen 12 mg/dL (7-17); Calcium 9.7 mg/dL (8.4-10.2); Carbon Dioxide 27 mmol/L (22-32); Chloride 106 mmol/L (98-107); Estimated Glomerular Filt Rate > 60 mL/min (>60); Glucose 110 mg/dL (80-110); HEMOLYSIS < 15 (0-50); Lipase 203 U/L (23-300); Potassium 3.8 mmol/L (3.4-5.1); Sodium 137 mmol/L (137-145); Total Protein 7.1 g/dL (6.3-8.2)
[2024-08-19 14:03] LABS: Lactate (Lactic Acid) 1.5 mmol/L (0.7-2.1)
[2024-08-19 14:19] LABS: Procalcitonin < 0.030 ng/mL (<0.5)
--- NOTE | 2024-08-19 14:37 | EKG_ITS ---
[place] [address] [address] [place] [id number] Test Date: 2024-08-19 Pat Name: Prem Rios Department: [facility] Room: Gender: Female Planning Assistant: OP : 1960 Requested By: Order Number: [id number] Reading MD: Noah Egan MD Measurements Intervals [place] Rate: 59 P: 3 OR: 178 QRS: -13 QRSD: 150 T: 18 QT: 476 QTc: 471 Interpretive Statements Sinus bradycardia Right bundle branch block (old) Inferior infarct , age undetermined Electronically Signed On 08-20-2024 10:35:14 PST by Noah Egan MD
[2024-08-19] MEDS: HYDROCODONE/ACET 10/325 TABLET 1 TAB PO (16:37)
--- NOTE | 2024-08-19 18:20 | DI.CT.S_ITS ---
PROCEDURE: CT PELVIS W CON INDICATIONS: R PELVIC CYSTS, TUNNELING? TECHNIQUE: After the administration of intravenous contrast, 5 mm thick sections acquired from the iliac crests to the symphysis. 5 mm coronal and sagittal reformats were acquired. For radiation dose reduction, the following was used: automated exposure control, adjustment of mA and/or kV according to patient size. COMPARISON: None. FINDINGS: Image quality: Diagnostic. PELVIS: Peritoneum and Bowel: Bowel loops demonstrate normal wall thickness and caliber. No free fluid or air. Normal appendix. Pelvic Organs: Uterus is normal in size for age. No suspicious adnexal mass. Bladder: Normal wall thickness, accounting for underdistension. No perivesicular fat stranding. Pelvic Nodes: No enlarged lymph nodes. Miscellaneous: No inguinal hernias are seen. Fatty infiltration of the quadratus femoris muscles bilaterally. Small fat containing periumbilical hernia. Bones: Postsurgical changes are partially included in the lumbar spine. Heterogeneity of the visualized osseous structures with suspected multifocal sclerotic lesions suspicious for metastatic disease. IMPRESSION: Heterogeneous appearance of the visualized osseous structures with sclerotic foci that are suspicious for osseous metastatic disease from an unknown primary malignancy. Recommend nuclear medicine bone scan for further evaluation. Approved by: Xavier Jenkins M.D. on 08/19/2024 at 20:00
--- NOTE | 2024-08-19 18:31 | ED.SKABFB ---
HPI - Skin/Abscess/Foreign Bdy General Chief complaint: Skin/Abscess/Foreign Body Stated complaint: sent by PCP, cyst in groin area, fever Time Seen by Provider: 08/19/24 17:56 Source: patient Mode of arrival: Ambulatory Limitations: no limitations History of Present Illness HPI narrative: 64-year-old female with history of aortic valve replacement on warfarin (replaced for aortic stenosis w/bicuspid valve), chronic pain, reported hx of invasive ductal carcinoma s/p R breast lumpectomy and radiation presents for cyst-like pain on her L thigh. Patient states that she has had intermittent swelling and pain on her inner left thigh. She has been seen in the walk-in clinic and has been given antibiotics intermittently, but she states that the cyst wall has never been removed. Cyst once tunneled requiring I&D. She states that a few days ago she was able to drain a large amount of purulent material from the area. Over the last 3 days she has felt intermittently feverish with T-max 102 reported at home. She called her PCP offices nursing advice line today and they referred her to the ER for evaluation. Reports history of aortic valve replacement 05/15/24. She denies history of groin catheterization during that hospital stay. Patient and daughter both expressed frustration that they have had recurrent problems with this cyst over the years, but the area has never been scanned. Related Data Home Medications Medication Instructions Recorded Confirmed aspirin 81 mg chewable tablet 81 mg PO DAILY 12/29/22 07/15/24 amiodarone 200 mg tablet 200 mg PO DAILY 05/28/24 07/15/24 metoprolol tartrate 25 mg tablet 25 mg PO BID 05/28/24 07/15/24 warfarin 1 mg tablet 1 mg PO QMWF 05/28/24 08/12/24 Previous Rx's Medication Instructions Recorded trazodone 100 mg tablet 200 mg (2 x 100 mg) PO ONCE PM for 11/20/23 insomnia #180 tabs atorvastatin 80 mg tablet 80 mg PO BEDTIME #90 tabs 04/19/24 cyclobenzaprine 10 mg tablet See Rx Instructions .Route 06/07/24 .COMPLEX #30 tabs duloxetine 20 mg capsule,delayed 20 mg PO BID #180 caps 06/24/24 release mupirocin 2 % topical ointment 1 applic topical TID #22 grams 07/09/24 hydrocodone 10 mg-acetaminophen 1 tab PO TID PRN pain #90 tabs 07/15/24 325 mg tablet hydrocodone 10 mg-acetaminophen 1 tab PO TID PRN pain #90 tabs 07/15/24 325 mg tablet hydrocodone 10 mg-acetaminophen 1 tab PO TID PRN severe pain #90 07/15/24 325 mg tablet tabs bupropion HCl 150 mg 24 hr tablet, 150 mg PO QAM #90 tabs 07/16/24 extended release warfarin 2.5 mg tablet See Rx Instructions .Route 07/25/24 .COMPLEX #120 tabs losartan 50 mg tablet 50 mg PO BID #180 tabs 08/13/24 Allergies Allergy/AdvReac Type Severity Reaction Status Date / Time aspartame Allergy Severe numbness Verified 07/15/24 13:34 in mouth & throat from nutrisweet codeine Allergy Severe HIVES Verified 07/15/24 13:34 ergotamine [From Ergostat] Allergy Unknown Verified 07/15/24 13:34 oxycodone Allergy Unknown tachycardia Verified 07/15/24 13:34 meloxicam AdvReac Severe palpitations/lips Verified 07/15/24 13:34 and fingers numb Patient History Medical History Anticoagulation goal of INR 2.0 to 2.5 Cervical spondylosis Neuroforaminal stenosis of cervical spine Cholesteatoma Warthin's tumor Parotid mass Foot dermatitis Chronic left shoulder pain Adhesive capsulitis Rotator cuff tear Cutaneous candidiasis Breast pain Cervical cancer screening Skin cyst Substance abuse PTSD (post-traumatic stress disorder) History of bipolar disorder Stroke Carpal tunnel syndrome (~1995) Chicken pox (~1968) Vertigo Menopause (~1997) Kidney stones (~2014) Hemorrhoid Colon polyps Hypertension (~1989) History of breast cancer (~2005) Right shoulder pain (~2020) Anxiety with depression Heart murmur Chronic pain syndrome (09/24/15) Chronic hepatitis C without hepatic coma (09/24/15) Uncomplicated opioid dependence Chronic back pain Surgical History Mechanical heart valve present Anesthesia History of back surgery (~2018) History of hemorrhoidectomy (~1989) H/O right wrist surgery (~1984) History of placement of ear tubes History of colonoscopy (~2020) History of coronary artery stent placement (~2019) Family History Mother Cancer Diabetes mellitus History of heart disease Brother Diabetes mellitus Hyperlipidemia Hypertension Pacemaker Sister Diabetes mellitus Hypertension Sister Hyperlipidemia Liver disease Autoimmune disease Grandfather Cancer Grandfather Alzheimer's disease Grandmother Alzheimer's disease Social History marital status: unmarried,single details: Pt. lives with her sister and nephew. household members: family lives independently: Yes occupational status: unemployed Smoking Status: Former smoker alcohol intake: former substance use type: marijuana Smoking Status: Former smoker tobacco type: cigarettes alcohol intake frequency: 0-2 drinks per day Substance Use Type: marijuana Exam Initial Vital Signs Initial Vital Signs: Vital Signs Temperature 97.3 F L 08/19/24 13:08 Pulse Rate 72 08/19/24 13:08 Respiratory Rate 18 08/19/24 13:08 Blood Pressure 168/73 H 08/19/24 13:08 Pulse Oximetry 98 08/19/24 13:08 Oxygen Delivery Method Room Air 08/19/24 13:08 Const: Awake, alert, no acute distress, nontoxic appearing Cardiac: regular rate, regular rhythm RESP: unlabored, clear bilaterally, no wheezing GI: Soft, nontender, nondistended, no rebound, no guarding : 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, normal external genitalia Skin: hydradenitis supperativa not currently infected involving L > R groin regions Neuro: AO x3, CN II-XII grossly intact, moves all extremities Course Orders Ordered: ED Orders 08/19/24 18:20 CT pelvis w con Stat Discontinued Medications Hydrocodone Bitart/Acetaminophen (Hydrocodone/Acet 10/325 Tablet) 1 tab PO NOW ONE Stop: 08/19/24 16:29 Last Admin: 08/19/24 16:37 Dose: 1 tab Documented By: JANIYA Sodium Chloride (Normal Saline 0.9%) 1,000 mls @ 1,000 mls/hr IV BOLUS ONE Stop: 08/19/24 14:14 Last Infusion: 08/19/24 15:57 Dose: Infused Documented By: Admin: 08/19/24 13:42 Dose: 1,000 mls/hr Documented By: LOUIE Ondansetron HCl (Ondansetron 4 Mg/2 Ml Inj) 4 mg IV NOW PRN PRN Reason: Nausea And Vomiting Ondansetron HCl (Ondansetron 4 Mg Odt) 4 mg SL NOW PRN PRN Reason: Nausea And Vomiting Vital Signs Vital signs: Vital Signs - 8 hr 08/19/24 16:00 08/19/24 16:01 08/19/24 16:01 Temperature Pulse Rate 58 L 58 L Respiratory Rate Blood Pressure 145/65 H Pulse Oximetry 98 98 Oxygen Delivery Method 08/19/24 16:30 08/19/24 16:30 08/19/24 17:26 Temperature Pulse Rate 60 53 L Respiratory Rate Blood Pressure 151/69 H Pulse Oximetry 98 93 Oxygen Delivery Method 08/19/24 17:27 08/19/24 17:27 08/19/24 17:30 Temperature Pulse Rate 55 L Respiratory Rate Blood Pressure 131/61 152/70 H Pulse Oximetry 96 Oxygen Delivery Method 08/19/24 17:30 08/19/24 18:00 08/19/24 18:01 Temperature Pulse Rate 62 61 Respiratory Rate Blood Pressure Pulse Oximetry 97 96 97 Oxygen Delivery Method 08/19/24 18:01 08/19/24 18:38 08/19/24 18:40 Temperature Pulse Rate 62 Respiratory Rate Blood Pressure 143/65 H Pulse Oximetry 82 L 97 Oxygen Delivery Method 08/19/24 18:40 08/19/24 19:00 08/19/24 19:01 Temperature Pulse Rate 59 L 59 L Respiratory Rate Blood Pressure 186/71 H Pulse Oximetry 96 96 Oxygen Delivery Method 08/19/24 19:01 08/19/24 19:31 08/19/24 20:17 Temperature 98.0 F Pulse Rate 64 66 Respiratory Rate 16 Blood Pressure 135/56 L 127/58 L 175/80 H Pulse Oximetry 91 99 Oxygen Delivery Method Room Air MDM - Skin/Abscess/Foreign Bdy Differential Diagnosis Differential diagnosis: Likely abscess of skin or subcutaneous tissue, dermatophytosis and urticaria Lab Data 08/19/24 13:30 08/19/24 13:30 Labs: Lab Results 08/19/24 08/19/24 Range/Units 13:30 13:40 WBC 6.8 (4.5-11.0) X10^3/uL RBC 4.32 (4.0-5.2) X10^6/uL Hgb 13.2 (12.0-16.0) g/dL Hct 40.5 (36-46) % MCV 93.6 (80-100) fL MCH 30.5 (26-34) PG MCHC 32.5 (30-36) % RDW 14.7 (11.6-14.8) % Plt Count 264 (150-400) X10^3/uL Neut % (Auto) 58.9 (50-75) % Lymph % (Auto) 32.2 (25-40) % [place] % (Auto) 5.6 (3-14) % Eos % (Auto) 2.2 (2-4) % Baso % (Auto) 1.1 (0-2) % Neut # (Auto) 4000 (1565-7309) /uL Lymph # (Auto) 2200 (6415-5965) /uL [place] # (Auto) 400 (0-900) /uL Eos # (Auto) 200 (0-450) /uL Baso # (Auto) 100 (0-100) /uL PT 22.0 H (9.4-12.5) SECONDS INR 2.0 H (0.9-1.3) APTT 49 H (25.1-36.5) SECONDS Sodium 137 (137-145) mmol/L Potassium 3.8 (3.4-5.1) mmol/L Chloride 106 (98-107) mmol/L Carbon Dioxide 27 (22-32) mmol/L BUN 12 (7-17) mg/dL Creatinine 0.91 (0.52-1.04) mg/dL Estimated GFR > 60 (>60) mL/min BUN/Creatinine Ratio 13.2 (6-22) Glucose 110 (80-110) mg/dL Lactate 1.5 (0.7-2.1) mmol/L Calcium 9.7 (8.4-10.2) mg/dL Total Bilirubin 0.4 (0.2-1.3) mg/dL AST 39 H (14-36) IU/L ALT 32 (<35) IU/L Alkaline Phosphatase 120 (38-126) U/L Total Protein 7.1 (6.3-8.2) g/dL Albumin 4.1 (3.5-5.0) g/dL Globulin 3.0 (1.7-4.1) g/dL Albumin/Globulin Ratio 1.4 (1.0-2.8) Lipase 203 (23-300) U/L Procalcitonin < 0.030 (<0.5) ng/mL Urine RBC None seen (0-5/HPF) Urine WBC 1-5/hpf (0-5/HPF) Ur Squamous Epith Cells 5-10 /hpf H (0-5/HPF) Urine Bacteria None seen (None) Ur Culture Indicated? Specimen cultured Vol Urine Centrifuged 10ml (spun) Urine Dip Bedside Urine Glucose Negative Bedside Urine Bilirubin - Negative Bedside Urine Ketone - Negative Urine Specific Pegram 1.010 Bedside Urine Occult Blood - Negative Bedside Urine pH 6.0 Bedside Urine Protein - Negative Bedside Urine Urobilinogen - Negative Bedside Urine Nitrite - Negative Bedside Urine Leukocytes +/- 15 Esterase Imaging Data Chest x-ray: Radiologist's Impression: PROCEDURE: XR CHEST 1V INDICATIONS: suspected sepsis TECHNIQUE: One view of the chest was acquired. COMPARISON: [facility], , XR CHEST 1V, 05/03/2021, 10:59. FINDINGS: Surgical changes and devices: Right axillary clips. Interval midline sternotomy. Lungs and pleura: Lungs are clear. No pleural effusions or pneumothorax. Mediastinum: Mediastinal contours appear normal. Heart size is normal. Bones and chest wall: No suspicious bony lesions. Overlying soft tissues appear unremarkable. IMPRESSION: No acute cardiopulmonary abnormality is seen. Dictated by: Carmelo Hart M.D. on 08/19/2024 at 13:49 Approved by: Carmelo Hart M.D. on 08/19/2024 at 13:50 CT scan - abdomen/pelvis: Radiologist's Impression: PROCEDURE: CT PELVIS W CON INDICATIONS: R PELVIC CYSTS, TUNNELING? TECHNIQUE: After the administration of intravenous contrast, 5 mm thick sections acquired from the iliac crests to the symphysis. 5 mm coronal and sagittal reformats were acquired. For radiation dose reduction, the following was used: automated exposure control, adjustment of mA and/or kV according to patient size. COMPARISON: None. FINDINGS: Image quality: Diagnostic. PELVIS: Peritoneum and Bowel: Bowel loops demonstrate normal wall thickness and caliber. No free fluid or air. Normal appendix. Pelvic Organs: Uterus is normal in size for age. No suspicious adnexal mass. Bladder: Normal wall thickness, accounting for underdistension. No perivesicular fat stranding. Pelvic Nodes: No enlarged lymph nodes. Miscellaneous: No inguinal hernias are seen. Fatty infiltration of the quadratus femoris muscles bilaterally. Small fat containing periumbilical hernia. Bones: Postsurgical changes are partially included in the lumbar spine. Heterogeneity of the visualized osseous structures with suspected multifocal sclerotic lesions suspicious for metastatic disease. IMPRESSION: Heterogeneous appearance of the visualized osseous structures with sclerotic foci that are suspicious for osseous metastatic disease from an unknown primary malignancy. Recommend nuclear medicine bone scan for further evaluation. Approved by: Xavier Jenkins M.D. on 08/19/2024 at 20:00 [facility] Narrative Medical decision making narrative: Well appearing patient with 6 months of intermittent inner thigh swelling, 3 days of reported fever at home. No fever at present. On evaluation there appear to be changes consistent with hydradenitis supperativa in the groin region without evidence of ongoing infection or inflammation. Patient reports concern that she thinks the cyst has begun tunneling and is causing her thigh to swell and become painful. I have low suspicion for a tunneling process at this time, however due to recent fever and reports of previous tunneling cyst a CT of the pelvis will be ordered. Laboratory work ordered. Laboratory work reviewed, no significant abnormality appreciated. WBC count 6.8, hemoglobin 13.2, platelets 264, INR 2.0, sodium 137, potassium 3.8, creatinine 0.91, liver enzymes within normal limits, procalcitonin undetectable. Chest x-ray shows no acute process. CT of the pelvis with contrast shows no evidence of cyst or inflammatory process in the soft tissues, however there are multiple foci of sclerotic lesions in the pelvis concerning for metastatic disease. No obvious etiology based on blood work and chest x-ray. Patient does have a remote history of breast cancer, question if this could be the primary. Patient and daughter informed of lab and imaging results at bedside. I did inform them of the CT results and a printed out copy of the report was given to the patient. She was counseled on the potential for this finding to be cancerous and recommended close follow up with primary care doctor for additional studies and appropriate referrals to specialists. Discharge Plan Departure Patient Disposition: Home Clinical Impression: Hip pain, Abnormal bone radiograph Instructions: DI for Hip Pain Activity Restrictions/Additional Instructions: Your blood work today was normal. Your chest x-ray did not show any abnormalities. Your pelvis CT did show abnormal findings that need to be followed up with your primary care doctor. There are abnormal changes to the bone tissue that are concerning for a cancerous process. This is not a diagnosis of cancer. You will need to follow up with your primary care doctor for additional testing. Radiology recommends nuclear bone scan. Prescriptions: No Action atorvastatin 80 mg tablet 80 mg PO BEDTIME Qty: 90 2RF cyclobenzaprine 10 mg tablet See Rx Instructions .ROUTE .COMPLEX Qty: 30 2RF Dose Instruction: take 1 tablet by mouth at bedtime if needed for muscle spasm Rx Instructions: take 1 tablet by mouth at bedtime if needed for muscle spasm duloxetine 20 mg capsule,delayed release(DR/EC) 20 mg PO BID Qty: 180 1RF bupropion HCl 150 mg tablet extended release 24 hr 150 mg PO QAM Qty: 90 2RF losartan 50 mg tablet 50 mg PO BID Qty: 180 2RF mupirocin 2 % ointment 1 applic topical TID Qty: 22 0RF warfarin 2.5 mg tablet See Rx Instructions .ROUTE .COMPLEX Qty: 120 3RF Protocol: Dose Management Condition: Monday (Week One) Dose/Route: 3.75 mg Instruction: 1.5 x 2.5 mg tablets Condition: Monday Dose/Route: 7.5 mg Instruction: 3 x 2.5 mg tablets Condition: Monday Dose/Route: 5 mg Instruction: 2 x 2.5 mg tablets Condition: Monday Dose/Route: 3.75 mg Instruction: 1.5 x 2.5 mg tablets Condition: Dose/Route: 5 mg Instruction: 2 x 2.5 mg tablets Condition: Monday Dose/Route: 3.75 mg Instruction: 1.5 x 2.5 mg tablets Condition: Monday Dose/Route: 5 mg Instruction: 2 x 2.5 mg tablets Condition: Monday (Week Two) Dose/Route: 3.75 mg Instruction: 1.5 x 2.5 mg tablets Condition: Monday Dose/Route: 3.75 mg Instruction: 1.5 x 2.5 mg tablets Condition: Monday Dose/Route: 5 mg Instruction: 2 x 2.5 mg tablets Condition: Monday Dose/Route: 3.75 mg Instruction: 1.5 x 2.5 mg tablets Condition: Dose/Route: 5 mg Instruction: 2 x 2.5 mg tablets Condition: Monday Dose/Route: 3.75 mg Instruction: 1.5 x 2.5 mg tablets Condition: Monday Dose/Route: 5 mg Instruction: 2 x 2.5 mg tablets Protocol Text: Adjustment Start Date: Monday08/12/24 INR Value: 1.8 INR Date: 08/12/24 Recheck Date: 08/22/24 Rx Instructions: Take 2 tablets (5 mg) total on and Monday. Take 1 1/2 tablet (3.75 mg) total all other days; or as directed. trazodone 100 mg tablet 200 mg PO ONCE PM Qty: 180 3RF amiodarone 200 mg tablet 200 mg PO DAILY metoprolol tartrate 25 mg tablet 25 mg PO BID warfarin 1 mg tablet 1 mg PO QMWF Hold Instructions: Home Medication placed on hold at Doctor's office Protocol: Dose Management Condition: Monday (Week One) Dose/Route: 3.75 mg Instruction: 1.5 x 2.5 mg tablets Condition: Monday Dose/Route: 7.5 mg Instruction: 3 x 2.5 mg tablets Condition: Monday Dose/Route: 5 mg Instruction: 2 x 2.5 mg tablets Condition: Monday Dose/Route: 3.75 mg Instruction: 1.5 x 2.5 mg tablets Condition: Dose/Route: 5 mg Instruction: 2 x 2.5 mg tablets Condition: Monday Dose/Route: 3.75 mg Instruction: 1.5 x 2.5 mg tablets Condition: Monday Dose/Route: 5 mg Instruction: 2 x 2.5 mg tablets Condition: Monday (Week Two) Dose/Route: 3.75 mg Instruction: 1.5 x 2.5 mg tablets Condition: Monday Dose/Route: 3.75 mg Instruction: 1.5 x 2.5 mg tablets Condition: Monday Dose/Route: 5 mg Instruction: 2 x 2.5 mg tablets Condition: Monday Dose/Route: 3.75 mg Instruction: 1.5 x 2.5 mg tablets Condition: Dose/Route: 5 mg Instruction: 2 x 2.5 mg tablets Condition: Monday Dose/Route: 3.75 mg Instruction: 1.5 x 2.5 mg tablets Condition: Saturday Dose/Route: 5 mg Instruction: 2 x 2.5 mg tablets Protocol Text: Adjustment Start Date: Monday08/12/24 INR Value: 1.8 INR Date: 08/12/24 Recheck Date: 08/22/24 hydrocodone-acetaminophen 10-325 mg tablet 1 tab PO TID PRN (Reason: pain) Qty: 90 0RF hydrocodone-acetaminophen 10-325 mg tablet 1 tab PO TID PRN (Reason: pain) Qty: 90 0RF hydrocodone-acetaminophen 10-325 mg tablet 1 tab PO TID PRN (Reason: severe pain) Qty: 90 0RF Rx Instructions: Try to get by with least amount as possible (1/2 to 1 tab as per script). Caution as to possible codeine allergy on chart. Max 3000 mg tylenol daily from any source. aspirin 81 mg Tablet,Chewable 81 mg PO DAILY Referrals: Josef Zendejas MD [Primary Care Provider] - Stand Alone Forms: Patient Portal/API/Survey
== END 2024-08-19 20:20 | disposition home or self-care (01) ==
PROVIDERS: Emergency Medicine; Emergency Provider Emergency Medicine; Family Provider Family Medicine; PCP Family Medicine
DX: M25.552 Pain in left hip (principal); R00.1 Bradycardia, unspecified; I45.10 Unspecified right bundle-branch block; L73.2 Hidradenitis suppurativa; R93.7 Abnormal findings on diagnostic imaging of other parts of musculoskeletal system; Z95.2 Presence of prosthetic heart valve; Z79.01 Long term (current) use of anticoagulants; R50.9 Fever, unspecified
CPT/HCPCS: 36415; 71045; 72193; 80053; 81003; 81015; 83605; 83690; 84145; 85025; 85610; 85730; 87040; 87086; 93005; 93010; 96360; 96361; 99284; Q9967

== ENCOUNTER 2024-09-06 11:54 | Outpatient (CLI) | payer OTHER, MEDICAID, SELFPAY ==
[2024-09-06] VITALS (11 sets, daily range): BP systolic 124–139; BP diastolic 55–77; PULSE 49–62; RESP 12–22; TEMP 36.2; O2SAT 92–99
--- NOTE | 2024-09-06 | PATH_ITS ---
[facility] Accession Number: [id number] No. of containers..01 Tissue . 01 Material submitted: . hip - RIGHT ILIAC CREST . 01 Diagnosis: A: RIGHT ILIAC CREST, BIOPSY: Metastatic carcinoma, consistent with breast origin, see comments and microscopic description. -ER 90-100% strong positive, IN 60% weak positive, HER2 negative (score 0). [facility] 09/16/2024 1509 Local . 01 Comment: Given the patient's provided history of remote breast cancer, the overall morphologic and immunophenotypic pattern is most consistent with metastatic carcinoma of breast origin. 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 Kwame Lacey who agrees with the interpretation. . 01 Electronically signed: . Juanjose Castellano MD, Pathologist NPI- [id number] . 01 Gross description: . Received in formalin with two identifiers and no site on jar, are three dykes needle cores of friable bone that fragmented upon handling, ranging in length from 0.9 to 1.4 cm and 0.2 cm in diameter. Submitted entirely in cassette A1 following decalcification in Immunocal. ([id number]) /[facility] 09/07/2024 2259 Local . 01 Microscopic: . Histologic sections reveal bone involved by small foci of infiltrating moderately differentiated carcinoma in focal clusters. A panel of immunohistochemical stains were indicated and performed with adequate controls to better characterize this process. The neoplastic cells are uniformly strong positive for ALEX; CK7, and GATA3; while negative for CK20, CD138, and Melan-A. Mammaglobin is equivocal. Biomarkers include ER positive (90-100% strong staining), IN positive (60% weak staining), and HER2/LIANNA negative (score 0). Note that the specimen was decalcified, and biomarker tests have not been validated on decalcified tissue. The scoring criteria for breast biomarkers by immunohistochemistry is based on the ASCO/CAP guidelines (Christian AC et al, J Clin Oncol: 2017Mar 27;36(20):8297-4459 and Mar ME et al, Arch Pathol Lab Med: 2009;134(6):907-22). Deparaffinized sections of formalin fixed tissue (along with appropriate positive controls) are incubated with the above antibody(s). Using the automated [place] stainer, tissue is incubated with the designated antibody which is then localized by a non-biotin, dual polymer detection system. The external controls are reviewed for appropriate reactivity and found to be adequate. Results on the target cell population are indicated above. These tests have not been validated on decalcified or alcohol-based fixed tissue. This test was developed and its performance characteristics determined by [employer]. It has not been cleared or approved by the U.S. Food and Drug Administration. The FDA has determined that such clearance or approval is not necessary. This test is used for clinical purposes. It should not be regarded as investigational or for research. Technical Note: The immunohistochemical stains reported were performed at [facility] ([address] [place] [address] [address], [facility] [address]). They were developed and their performance characteristics determined by [facility] They have not been cleared or approved by the U.S. Food and Drug Administration, although such approval is not required for analyte-specific reagents of this type. Food and Drug Administration. . 01 Pathologist provided ICD-10: C79.51 . 01 CPT . 519498, 711384, D99844, X79715 Specimen Comment: A courtesy copy of this report has been sent to [phone] Performed at: [address] [place] [address] [address], [place], [place] [id number] MD Jovi Kulkarni MD Phone: [phone]
--- NOTE | 2024-09-06 11:56 | DI.CT.S_ITS ---
CLINICAL HISTORY: 64-year-old woman with multiple bone lesions demonstrating increased FDG uptake on PET-CT. PROCEDURE: CT GUIDED POSTERIOR RIGHT ILIAC CREST BONE LESION BIOPSY PHYSICIAN: Oj Enriquez M.D. SEDATION: Conscious sedation was performed by the nursing staff under the supervision of the physician with continuous hemodynamic monitoring. Medications: Versed 2 mg; Fentanyl 100 mcg; sedation time 30 min DOSE: DLP: 605 mGycm CONTRAST: none FINDINGS: After the risks, benefits and alternatives were explained, informed consent was obtained from the patient and/or family members. The patient was placed prone on the CT table and prepped and draped in a sterile fashion. Local anesthesia administered with 1% lidocaine. Under CT guidance, a 11 gauge needle cannula was advanced in stepwise fashion into the posterior right iliac crest bone lesion. CT was performed confirming needle position within the targeted lesion. Next, a coaxial 13 gauge core biopsy needle was advanced through the needle cannula and 3 core biopsies were obtained. Specimens were sent to pathology for evaluation. The needle was removed. Patient tolerated the procedure well. No immediate complications noted. IMPRESSION: CT guided biopsy of posterior right iliac crest bone lesion as described. Dictated by: Oj Enriquez M.D. on 09/06/2024 at 16:34 Approved by: Oj Enriquez M.D. on 09/06/2024 at 16:36
[2024-09-06 12:41] LABS: Hematocrit 40.3 % (36-46); Hemoglobin 13.2 g/dL (12.0-16.0); Mean Corpuscular HGB Conc 32.7 % (30-36); Mean Corpuscular Hemoglobin 30.8 PG (26-34); Mean Corpuscular Volume 94.2 fL (80-100); Platelet Count 248 X10^3/uL (150-400); Red Blood Cell Count 4.28 X10^6/uL (4.0-5.2); Red Cell Distribution Width 15.6 % (11.6-14.8); White Blood Cell Count 5.5 X10^3/uL (4.5-11.0)
[2024-09-06 12:50] LABS: Prothrombin Time 11.2 SECONDS (9.4-12.5)
[2024-09-06] MEDS: fentaNYL 100 MCG/2 ML INJ 50 MCG IV ×2 (13:49→13:58)
[2024-09-06] MEDS: MIDAZOLAM 2 MG/2 ML VIAL 1 MG IV ×2 (13:49→13:58)
[2024-09-06] MEDS: LIDOCAINE 1% 20 ML INJ (13:52)
== END 2024-09-06 14:40 | disposition home or self-care (01) ==
LOC: CT 11:55
PROVIDERS: Family Provider Family Medicine; PCP Family Medicine; Referring Provider Radiology Vascular & Interventional Radiology; Visit Provider Radiology Vascular & Interventional Radiology
DX: C79.51 Secondary malignant neoplasm of bone (principal); Z85.3 Personal history of malignant neoplasm of breast
CPT/HCPCS: 20225; 77012; 85027; 85610; 99152; 99153; J2250; J3010

== ENCOUNTER → 2024-11-14 12:21 | Outpatient (CLI) | payer OTHER, SELFPAY ==
[2024-11-14 13:22] LABS: Prothrombin Time 69.6 SECONDS (9.4-12.5)
[2024-11-14 13:47] LABS: INR 6.5 (0.9-1.3)
== END ==
LOC: LAB 12:23
PROVIDERS: Family Medicine; Family Provider Family Medicine; PCP Family Medicine; Referring Provider Family Medicine; Visit Provider Family Medicine
DX: Z51.81 Encounter for therapeutic drug level monitoring (principal); I48.91 Unspecified atrial fibrillation; Z79.01 Long term (current) use of anticoagulants
CPT/HCPCS: 36415; 85610

== ENCOUNTER 2024-11-17 11:14 | Observation (INO) | payer OTHER, SELFPAY ==
[2024-11-17] VITALS (64 sets, daily range): BP systolic 84–148; BP diastolic 30–67; PULSE 49–67; RESP 12–31; TEMP 35.6–36.6; O2SAT 87–100; BMI 34.2
--- NOTE | 2024-11-17 11:31 | EKG_ITS ---
[address] [address] Test Date: 2024-11-17 Pat Name: Prem Rios Department: Located Within [facility] Room: Gender: Female Director [employer]: HARJIT : 1960 Requested By: Order Number: [id number] Reading MD: Alexi Obrien Measurements Intervals [place] Rate: 59 P: 2 DC: 172 QRS: 2 QRSD: 146 T: 10 QT: 468 QTc: 463 Interpretive Statements Sinus bradycardia Right bundle branch block Electronically Signed On 11-17-2024 18:58:06 PST by Alexi Obrien
--- NOTE | 2024-11-17 12:31 | DI.CT.S_ITS ---
PROCEDURE: CT ANGIO ABDOMEN PELVIS INDICATIONS: GI bleed LLQ tender, hypotension TECHNIQUE: After the administration of intravenous contrast, 2.5 mm thick sections acquired from the diaphragm to the symphysis. 10 mm maximum-intensity projection (MIP) reformats were then acquired. For radiation dose reduction, the following was used: automated exposure control. COMPARISON: None. FINDINGS: Vessels: Atherosclerotic calcification without aortic aneurysm. SMA and celiac origins are widely patent. No dissection. OTHER: Lower Chest: No significant findings. Liver: No solid mass. Gallbladder: No radiopaque gallstones or wall thickening. Biliary ducts: No biliary dilation. Pancreas: No ductal dilation. Spleen: Size is within normal limits. Adrenal Glands: No adrenal nodules. Kidneys and Ureters: No hydronephrosis. No solid mass. No complex renal cystic lesion which requires follow up. Stomach and Bowel: Normal colonic caliber, without significant wall thickening. Peritoneum: No abnormal intraperitoneal fluid. No free air. Ventral Wall: No hernia. Abdominal Nodes: No retroperitoneal or mesenteric adenopathy by size criteria. Vessels: Atherosclerotic calcification without aortic aneurysm. SMA and celiac origins are widely patent. PELVIS: Pelvic Organs: Unremarkable. Bladder: Unremarkable. Pelvic Nodes: No enlarged lymph nodes. Miscellaneous: No inguinal hernias are seen. Bones: Diffuse osteoblastic metastatic disease. Instrumented lower lumbar spine discectomy and fusion. Degenerative disc disease and arthropathy. IMPRESSION: Aortic atherosclerotic calcification without aneurysm or dissection. Proximal SMA and celiac arteries are widely patent No acute CT findings in the abdomen and pelvis. Diffuse osteoblastic metastatic disease Approved by: Nigel Guardado M.D. on 11/17/2024 at 12:59
--- NOTE | 2024-11-17 12:34 | ED_ITS ---
HPI - GI Bleed General Chief complaint: GI Bleed Stated complaint: Stage 4 Cancer/Rectal Bleeding Time Seen by Provider: 11/17/24 11:52 Source: patient and family Mode of arrival: Wheelchair History of Present Illness HPI Narrative: This 64-year-old female with a history of stage IV breast cancer, aortic valve replacement and warfarin anticoagulation presenting with melena. Reports that this morning she had an episode where she passed what she describes as a large amount of dark clotted material following that she also passed some coffee- ground material. She is done this only 1 time. She arrived normotensive but immediately after that became hypotensive. Patient does not have a history of prior GI bleeding she does have a history of hemorrhoids many years ago. She has had blood transfusions after traumatic injury many years ago. Has not had a recent upper or lower GI endoscopy. Three days ago her warfarin was held for an INR greater than 6. She has not having fevers nausea vomiting not having chest pain or shortness of breath. She does not have abdominal pain. She has had some lightheadedness no shortness of breath. States that she is agreeable to having a blood transfusion if needed. Related Data Home Medications Medication Instructions Recorded Confirmed aspirin 81 mg chewable tablet 81 mg PO DAILY 12/29/22 11/04/24 abemaciclib 150 mg tablet 150 mg PO BID 10/07/24 11/04/24 letrozole 2.5 mg tablet 2.5 mg PO DAILY 10/07/24 11/04/24 Previous Rx's Medication Instructions Recorded Disabled Parking Permit #1 ea 10/08/24 atorvastatin 80 mg tablet 80 mg PO BEDTIME #90 tabs 10/11/24 bupropion HCl 150 mg 24 hr tablet, 150 mg PO QAM #90 tabs 10/11/24 extended release duloxetine 20 mg capsule,delayed 20 mg PO BID #180 caps 10/11/24 release gabapentin 300 mg capsule 300 mg PO TID for pain #180 caps 10/11/24 losartan 50 mg tablet 50 mg PO BID #180 tabs 10/11/24 mupirocin 2 % topical ointment 1 applic topical TID #22 grams 10/11/24 nystatin 100,000 unit/mL oral 400,000 unit (4 mL) PO QID 14 days 10/11/24 suspension #224 mL ondansetron HCl 4 mg tablet 4 mg PO Q6H PRN nausea and 10/11/24 vomiting #20 tabs trazodone 100 mg tablet 200 mg (2 x 100 mg) PO ONCE PM for 10/11/24 insomnia #180 tabs warfarin 2.5 mg tablet See Rx Instructions .Route 10/11/24 .COMPLEX #180 tabs metoprolol tartrate 25 mg tablet 25 mg PO BID #90 tabs 10/16/24 hydrocodone 10 mg-acetaminophen 1 tab PO Q6H PRN pain #120 tabs 11/04/24 325 mg tablet hydrocodone 10 mg-acetaminophen 1 tab PO Q6H PRN severe pain #120 11/04/24 325 mg tablet tabs hydromorphone 4 mg tablet 4 mg PO Q6H PRN pain #60 tabs 11/04/24 (Dilaudid) Allergies Allergy/AdvReac Type Severity Reaction Status Date / Time aspartame Allergy Severe numbness Verified 11/04/24 11:28 in mouth & throat from nutrisweet codeine Allergy Severe HIVES Verified 11/04/24 11:28 ergotamine [From Ergostat] Allergy Unknown Verified 11/04/24 11:28 oxycodone Allergy Unknown tachycardia Verified 11/04/24 11:28 meloxicam AdvReac Severe palpitations/lips Verified 11/04/24 11:28 and fingers numb Patient History Medical History (Updated 11/17/24 @ 14:54 by Bennett Garcia MD) Malignant neoplasm of breast metastatic to bone Anticoagulation goal of INR 2.0 to 2.5 Cervical spondylosis Neuroforaminal stenosis of cervical spine Cholesteatoma Warthin's tumor Parotid mass Foot dermatitis Chronic left shoulder pain Adhesive capsulitis Rotator cuff tear Cutaneous candidiasis Breast pain Cervical cancer screening Skin cyst Substance abuse PTSD (post-traumatic stress disorder) History of bipolar disorder Stroke Carpal tunnel syndrome (~1995) Chicken pox (~1968) Vertigo Menopause (~1997) Kidney stones (~2014) Hemorrhoid Colon polyps Hypertension (~1989) History of breast cancer (~2005) Right shoulder pain (~2020) Anxiety with depression Heart murmur Chronic pain syndrome (09/24/15) Chronic hepatitis C without hepatic coma (09/24/15) Uncomplicated opioid dependence Chronic back pain Surgical History (Updated 09/12/24 @ 12:23 by Meet Correia LPN) Mechanical heart valve present Anesthesia History of back surgery (~2018) History of hemorrhoidectomy (~1989) H/O right wrist surgery (~1984) History of placement of ear tubes History of colonoscopy (~2020) History of coronary artery stent placement (~2019) Family History Mother Cancer Diabetes mellitus History of heart disease Brother Diabetes mellitus Hyperlipidemia Hypertension Pacemaker Sister Diabetes mellitus Hypertension Sister Hyperlipidemia Liver disease Autoimmune disease Grandfather Cancer Grandfather Alzheimer's disease Grandmother Alzheimer's disease Social History marital status: unmarried,single details: Pt. lives with her sister and nephew. household members: family lives independently: Yes occupational status: unemployed Smoking Status: Current every day smoker alcohol intake: former substance use type: marijuana Smoking Status: Current every day smoker tobacco type: cigarettes alcohol intake frequency: 0-2 drinks per day Exam Initial Vital Signs Initial Vital Signs: Vital Signs Temperature 97.9 F 11/17/24 11:17 Pulse Rate 67 11/17/24 11:17 Respiratory Rate 16 11/17/24 11:17 Blood Pressure 119/57 L 11/17/24 11:17 Pulse Oximetry 100 11/17/24 11:17 Oxygen Delivery Method Room Air 11/17/24 11:17 Normotensive at triage, during my examination her mean arterial pressure is 63 with systolic pressures consistently in the 80s. Const Other: Appears to be in no distress fully oriented well-nourished Chest Other: Midline thoracotomy scar Resp Other: Lungs are clear equal equal breath sounds Cardio Other: Regular rhythm and rate mechanical valve click and systolic murmur GI Other: Normal bowel sounds abdomen is soft she is tender in the left lower quadrant. Has numerous skin tags and appears to have a heart rate on rectal exam no obvious source of bleeding there. In the vault, there is no dulce melena or hematochezia but the glove does return strongly guaiac positive Course Course Course Narrative: At 1:25 p.m., blood is infusing, patient was re-evaluated she is feeling well and is no longer hypotensive Orders Ordered: ED Orders 11/17/24 11:24 EKG-12 Lead Stat 11/17/24 12:06 Complete Blood Count AUTO DIFF Stat Comprehensive Metabolic Panel Stat PRBC [Packed Cells] Stat PTT Partial Thromboplastin Drake Stat Prothrombin Time INR Stat Type and Screen Stat 11/17/24 12:31 CT angio abdomen pelvis Stat 11/17/24 14:54 Hemoglobin and Hematocrit Stat Ondansetron HCl (Ondansetron 4 Mg/2 Ml Inj) 4 mg IV NOW PRN PRN Reason: Nausea And Vomiting Last Admin: 11/17/24 12:36 Dose: 4 mg Documented By: MITZI Ondansetron HCl (Ondansetron 4 Mg Odt) 4 mg SL NOW PRN PRN Reason: Nausea And Vomiting Discontinued Medications Nicotine (Nicotine 21 Mg Patch) 21 mg TOP NOW ONE Stop: 11/17/24 14:37 Last Admin: 11/17/24 14:50 Dose: 21 mg Documented By: BARBER Pantoprazole Sodium (Pantoprazole 40 Mg Vial) 80 mg IV NOW ONE Stop: 11/17/24 11:25 Last Admin: 11/17/24 12:37 Dose: 80 mg Documented By: MITZI Pantoprazole Sodium (Pantoprazole 40 Mg Vial) 80 mg IV NOW ONE Stop: 11/17/24 14:55 Last Admin: 11/17/24 14:58 Dose: Not Given Documented By: BARBER Reevaluation(s) Reevaluation #2: At 2:35 p.m., the patient is re-evaluated, she is normotensive packed red cell transfusion x1 unit is completing discussed recommendation for admission patient is in agreement. Consultations Consultation #1: Discussed with radiology, Dr. Guardado, agrees there may be contrast extravasation in the left upper quadrant associated with the fundus of the stomach however this could also be food debris Consultation #2: Discussed with surgeon , we will see for endoscopy, may have clear liquids, NPO after midnight. Discussed with hospitalist Dr. Bernstein will admit to observation Vital Signs Vital signs: Vital Signs - 8 hr 11/17/24 11:17 11/17/24 11:28 11/17/24 11:28 Temperature 97.9 F Pulse Rate 67 62 Respiratory Rate 16 Blood Pressure 119/57 L 105/49 L Pulse Oximetry 100 Oxygen Delivery Method Room Air 11/17/24 11:30 11/17/24 12:00 11/17/24 12:06 Temperature Pulse Rate 61 57 L 59 L Respiratory Rate Blood Pressure Pulse Oximetry 97 97 93 Oxygen Delivery Method Room Air 11/17/24 12:07 11/17/24 12:16 11/17/24 12:16 Temperature Pulse Rate 57 L Respiratory Rate Blood Pressure 94/44 L 84/40 L Pulse Oximetry 98 Oxygen Delivery Method 11/17/24 12:18 11/17/24 12:18 11/17/24 12:21 Temperature Pulse Rate 62 Respiratory Rate Blood Pressure 86/41 L 94/42 L Pulse Oximetry 100 Oxygen Delivery Method 11/17/24 12:21 11/17/24 12:25 11/17/24 12:25 Temperature Pulse Rate 56 L 55 L Respiratory Rate 16 27 H Blood Pressure 87/48 L Pulse Oximetry 95 97 Oxygen Delivery Method 11/17/24 12:29 11/17/24 12:29 11/17/24 12:30 Temperature Pulse Rate 58 L 60 Respiratory Rate 18 25 H Blood Pressure 91/43 L Pulse Oximetry 94 100 Oxygen Delivery Method 11/17/24 12:31 11/17/24 12:31 11/17/24 12:35 Temperature Pulse Rate 55 L Respiratory Rate 27 H Blood Pressure 101/55 L 97/44 L Pulse Oximetry 87 L Oxygen Delivery Method 11/17/24 12:35 11/17/24 12:40 11/17/24 12:40 Temperature Pulse Rate 52 L 52 L Respiratory Rate 12 12 Blood Pressure 84/45 L Pulse Oximetry 96 99 Oxygen Delivery Method 11/17/24 12:45 11/17/24 12:45 11/17/24 12:48 Temperature Pulse Rate 54 L Respiratory Rate 25 H Blood Pressure 90/50 L 93/48 L Pulse Oximetry 99 Oxygen Delivery Method 11/17/24 12:48 11/17/24 13:00 11/17/24 13:00 Temperature 98 F Pulse Rate 55 L 58 L 58 L Respiratory Rate 20 16 17 Blood Pressure 115/53 L Pulse Oximetry 99 97 Oxygen Delivery Method 11/17/24 13:02 11/17/24 13:02 11/17/24 13:15 Temperature 97.8 F Pulse Rate 59 L 55 L Respiratory Rate 16 18 Blood Pressure 115/53 L 119/57 L Pulse Oximetry 97 Oxygen Delivery Method 11/17/24 13:19 11/17/24 13:19 11/17/24 13:20 Temperature Pulse Rate 57 L 55 L Respiratory Rate 20 20 Blood Pressure 99/48 L Pulse Oximetry 100 99 Oxygen Delivery Method 11/17/24 13:20 11/17/24 13:30 11/17/24 13:39 Temperature Pulse Rate 53 L Respiratory Rate 31 H Blood Pressure 119/57 L 119/58 L Pulse Oximetry 98 Oxygen Delivery Method Room Air 11/17/24 13:39 11/17/24 13:40 11/17/24 13:40 Temperature Pulse Rate 53 L 52 L Respiratory Rate 21 21 Blood Pressure 116/56 L Pulse Oximetry 98 99 Oxygen Delivery Method 11/17/24 13:45 11/17/24 13:45 11/17/24 13:50 Temperature Pulse Rate 51 L Respiratory Rate 25 H Blood Pressure 124/59 L 119/58 L Pulse Oximetry 96 Oxygen Delivery Method 11/17/24 13:50 11/17/24 13:55 11/17/24 13:55 Temperature Pulse Rate 52 L 51 L Respiratory Rate 20 21 Blood Pressure 125/61 Pulse Oximetry 97 97 Oxygen Delivery Method 11/17/24 14:00 11/17/24 14:00 11/17/24 14:05 Temperature Pulse Rate 52 L Respiratory Rate 18 Blood Pressure 125/59 L 127/60 Pulse Oximetry 98 Oxygen Delivery Method 11/17/24 14:05 11/17/24 14:10 11/17/24 14:10 Temperature Pulse Rate 51 L 51 L Respiratory Rate 23 20 Blood Pressure 133/56 L Pulse Oximetry 97 97 Oxygen Delivery Method 11/17/24 14:15 11/17/24 14:15 11/17/24 14:20 Temperature Pulse Rate 52 L Respiratory Rate 15 Blood Pressure 124/59 L 123/59 L Pulse Oximetry 98 Oxygen Delivery Method 11/17/24 14:20 11/17/24 14:25 11/17/24 14:25 Temperature Pulse Rate 51 L 49 L Respiratory Rate 15 14 Blood Pressure 111/55 L Pulse Oximetry 96 98 Oxygen Delivery Method 11/17/24 14:30 11/17/24 14:30 11/17/24 14:35 Temperature Pulse Rate 50 L Respiratory Rate 18 Blood Pressure 126/59 L 136/64 Pulse Oximetry 97 Oxygen Delivery Method 11/17/24 14:35 11/17/24 14:40 11/17/24 14:40 Temperature Pulse Rate 52 L 51 L Respiratory Rate 20 14 Blood Pressure 135/57 L Pulse Oximetry 99 99 Oxygen Delivery Method 11/17/24 14:45 11/17/24 14:45 11/17/24 14:53 Temperature Pulse Rate 58 L Respiratory Rate 22 Blood Pressure 121/56 L 145/65 H Pulse Oximetry 98 Oxygen Delivery Method 11/17/24 14:53 11/17/24 14:55 11/17/24 14:55 Temperature Pulse Rate 55 L 53 L Respiratory Rate 22 15 Blood Pressure 147/65 H Pulse Oximetry 99 99 Oxygen Delivery Method 11/17/24 15:00 11/17/24 15:00 11/17/24 15:05 Temperature Pulse Rate 56 L Respiratory Rate 17 Blood Pressure 148/65 H 138/67 Pulse Oximetry 98 Oxygen Delivery Method 11/17/24 15:05 11/17/24 15:10 11/17/24 15:10 Temperature Pulse Rate 57 L 57 L Respiratory Rate 16 15 Blood Pressure 143/65 H Pulse Oximetry 96 96 Oxygen Delivery Method 11/17/24 15:15 11/17/24 15:15 11/17/24 15:20 Temperature Pulse Rate 56 L 55 L Respiratory Rate 13 14 Blood Pressure 133/60 Pulse Oximetry 96 95 Oxygen Delivery Method 11/17/24 15:20 Temperature Pulse Rate Respiratory Rate Blood Pressure 131/62 Pulse Oximetry Oxygen Delivery Method MDM - GI Bleed Lab Data Lab results narrative: First hemoglobin is 9.7, that is decreased compared with September 06. Platelets are normal white count is slightly low. INR subtherapeutic for this patient at 1.9 which is actually desirable at this point. 11/17/24 12:06 11/17/24 12:06 Labs: Lab Results 11/17/24 Range/Units 12:06 WBC 3.3 L (4.5-11.0) X10^3/uL RBC 2.87 L (4.0-5.2) X10^6/uL Hgb 9.7 L (12.0-16.0) g/dL Hct 28.3 L (36-46) % MCV 98.8 (80-100) fL MCH 33.8 (26-34) PG MCHC 34.2 (30-36) % RDW 16.6 H (11.6-14.8) % Plt Count 159 (150-400) X10^3/uL Neut % (Auto) 41.8 L (50-75) % Lymph % (Auto) 51.6 H (25-40) % [place] % (Auto) 4.0 (3-14) % Eos % (Auto) 1.9 L (2-4) % Baso % (Auto) 0.7 (0-2) % Neut # (Auto) 1400 L (2717-2724) /uL Lymph # (Auto) 1700 (4750-1113) /uL [place] # (Auto) 100 (0-900) /uL Eos # (Auto) 100 (0-450) /uL Baso # (Auto) 0 (0-100) /uL PT 20.9 H D (9.4-12.5) SECONDS INR 1.9 H (0.9-1.3) APTT 48 H (25.1-36.5) SECONDS Sodium 138 (137-145) mmol/L Potassium 4.0 (3.4-5.1) mmol/L Chloride 107 (98-107) mmol/L Carbon Dioxide 28 (22-32) mmol/L BUN 18 H (7-17) mg/dL Creatinine 0.98 (0.52-1.04) mg/dL Estimated GFR > 60 (>60) mL/min BUN/Creatinine Ratio 18.4 (6-22) Glucose 104 (80-110) mg/dL Calcium 9.0 (8.4-10.2) mg/dL Total Bilirubin 0.3 (0.2-1.3) mg/dL AST 27 (14-36) IU/L ALT 18 (<35) IU/L Alkaline Phosphatase 82 (38-126) U/L Total Protein 6.0 L (6.3-8.2) g/dL Albumin 3.4 L (3.5-5.0) g/dL Globulin 2.6 (1.7-4.1) g/dL Albumin/Globulin Ratio 1.3 (1.0-2.8) Blood Type O Positive Antibody Screen Negative Crossmatch See Detail Point of Care Testing Stool Occult Blood Positive Imaging Data CT scan - abdomen/pelvis: My Impression: No acute obstruction or perforation, possible left upper quadrant area of contrast extravasation Radiologist's Impression: [address] [address] [address] Scan Report Signed with Addenda Patient: Prem Rios MR#: [id number] : 1960 Acct:[id number] Age/Sex: 64 / F Date of Service: 11/17/24 Loc: ED Accession Number: [id number] Procedure: CT angio abdomen pelvis Ordering Provider: Bennett Garcia MD ADDENDUMThis report includes an Addendum and supersedes previous reports for this exam. PROCEDURE: CT ANGIO ABDOMEN PELVIS INDICATIONS: GI bleed LLQ tender, hypotension TECHNIQUE: After the administration of intravenous contrast, 2.5 mm thick sections acquired from the diaphragm to the symphysis. 10 mm maximum-intensity projection (MIP) reformats were then acquired. For radiation dose reduction, the following was used: automated exposure control. COMPARISON: None. FINDINGS: Vessels: Atherosclerotic calcification without aortic aneurysm. SMA and celiac origins are widely patent. No dissection. OTHER: Lower Chest: No significant findings. Liver: No solid mass. Gallbladder: No radiopaque gallstones or wall thickening. Biliary ducts: No biliary dilation. Pancreas: No ductal dilation. Spleen: Size is within normal limits. Adrenal Glands: No adrenal nodules. Kidneys and Ureters: No hydronephrosis. No solid mass. No complex renal cystic lesion which requires follow up. Stomach and Bowel: Normal colonic caliber, without significant wall thickening. Peritoneum: No abnormal intraperitoneal fluid. No free air. Ventral Wall: No hernia. Abdominal Nodes: No retroperitoneal or mesenteric adenopathy by size criteria. Vessels: Atherosclerotic calcification without aortic aneurysm. SMA and celiac origins are widely patent. PELVIS: Pelvic Organs: Unremarkable. Bladder: Unremarkable. Pelvic Nodes: No enlarged lymph nodes. Miscellaneous: No inguinal hernias are seen. Bones: Diffuse osteoblastic metastatic disease. Instrumented lower lumbar spine discectomy and fusion. Degenerative disc disease and arthropathy. IMPRESSION: Aortic atherosclerotic calcification without aneurysm or dissection. Proximal SMA and celiac arteries are widely patent No acute CT findings in the abdomen and pelvis. Diffuse osteoblastic metastatic disease Approved by: Nigel Guardado M.D. on 11/17/2024 at 12:59 ADDENDUM: The study was further reviewed at the request of the referring provider. Within the gastric fundus, there are 2 hyperdensities each measuring less than 5 mm on pre and postcontrast image and , without significant change. Given the lack of contrast enhancement, this most likely reflects food debris Dictated by: Nigel Guardado M.D. on 11/17/2024 at 13:31 Approved by: Nigel Guardado M.D. on 11/17/2024 at 13:35 Addendum Dictated By: Nigel Guardado MD Addendum Signed By: 11/17/241434 Addendum Cosigned By: DD/ /12/1434 TD/TT: 11/17/2411/12/1434 PROCEDURE: CT ANGIO ABDOMEN PELVIS INDICATIONS: GI bleed LLQ tender, hypotension TECHNIQUE: After the administration of intravenous contrast, 2.5 mm thick sections acquired from the diaphragm to the symphysis. 10 mm maximum-intensity projection (MIP) reformats were then acquired. For radiation dose reduction, the following was used: automated exposure control. COMPARISON: None. FINDINGS: Vessels: Atherosclerotic calcification without aortic aneurysm. SMA and celiac origins are widely patent. No dissection. OTHER: Lower Chest: No significant findings. Liver: No solid mass. Gallbladder: No radiopaque gallstones or wall thickening. Biliary ducts: No biliary dilation. Pancreas: No ductal dilation. Spleen: Size is within normal limits. Adrenal Glands: No adrenal nodules. Kidneys and Ureters: No hydronephrosis. No solid mass. No complex renal cystic lesion which requires follow up. Stomach and Bowel: Normal colonic caliber, without significant wall thickening. Peritoneum: No abnormal intraperitoneal fluid. No free air. Ventral Wall: No hernia. Abdominal Nodes: No retroperitoneal or mesenteric adenopathy by size criteria. Vessels: Atherosclerotic calcification without aortic aneurysm. SMA and celiac origins are widely patent. PELVIS: Pelvic Organs: Unremarkable. Bladder: Unremarkable. Pelvic Nodes: No enlarged lymph nodes. Miscellaneous: No inguinal hernias are seen. Bones: Diffuse osteoblastic metastatic disease. Instrumented lower lumbar spine discectomy and fusion. Degenerative disc disease and arthropathy. IMPRESSION: Aortic atherosclerotic calcification without aneurysm or dissection. Proximal SMA and celiac arteries are widely patent No acute CT findings in the abdomen and pelvis. Diffuse osteoblastic metastatic disease Approved by: Nigel Guardado M.D. on 11/17/2024 at 12:59 MDM Narrative Medical decision making narrative: 64-year-old female with active breast cancer and anticoagulated on warfarin with recent supratherapeutic INR. She presents today with melena x1 episode. She developed hypotension shortly after arrival and a unit of O-negative right cells was ordered and given stat. Her blood pressure improved, she had no further output, she was given Protonix and has packed red cells crossmatched. Differential diagnosis it is unlikely these are esophageal varices, it may be gastric in origin given the presentation and melena. Presently hemodynamically stable will be admitted to the hospitalist service with General surgery consulting for endoscopy. Critical Care Time Critical Care Time Critical Care Time: Yes (30) Total Critical Care Time: 30 Attestation: Anticoagulated patient with gastrointestinal bleeding and hypotension requiring immediate evaluation frequent re-evaluations and emergent transfusion of blood products Discharge Plan Departure Patient Disposition: Admitted As Inpatient Clinical Impression: Anticoagulated Gastrointestinal hemorrhage Qualifiers: GI bleed type/associated pathology: melena Qualified Code(s): K92.1 - Melena Admit Date/Time: 11/17/24 15:27 Admit Provider: Alexi Obrien
[2024-11-17 12:36] LABS: Add Manual Diff / Slide Review NO; Basophils Absolute Auto 0 /uL (0-100); Basophils Percent Auto 0.7 % (0-2); Eosinophils Absolute Auto 100 /uL (0-450); Eosinophils Percent Auto 1.9 % (2-4); Hematocrit 28.3 % (36-46); Hemoglobin 9.7 g/dL (12.0-16.0); Lymphocytes Absolute Auto 1700 /uL (1100-4500); Lymphocytes Percent Auto 51.6 % (25-40); Mean Corpuscular HGB Conc 34.2 % (30-36); Mean Corpuscular Hemoglobin 33.8 PG (26-34); Mean Corpuscular Volume 98.8 fL (80-100); Monocytes Absolute Auto 100 /uL (0-900); Neutrophils Absolute Auto 1400 /uL (1500-7000); Neutrophils Percent Auto 41.8 % (50-75); Platelet Count 159 X10^3/uL (150-400); Red Blood Cell Count 2.87 X10^6/uL (4.0-5.2); Red Cell Distribution Width 16.6 % (11.6-14.8); White Blood Cell Count 3.3 X10^3/uL (4.5-11.0)
[2024-11-17] MEDS: ONDANSETRON 4 MG/2 ML INJ IV (12:36)
[2024-11-17] MEDS: PANTOPRAZOLE 40 MG VIAL 80 MG IV (12:37)
[2024-11-17 12:44] LABS: INR 1.9 (0.9-1.3); Prothrombin Time 20.9 SECONDS (9.4-12.5)
[2024-11-17 12:47] LABS: PTT Partial Thromboplastin Tim 48 SECONDS (25.1-36.5)
[2024-11-17 12:52] LABS: Alanine Aminotransferase 18 IU/L (<35); Albumin 3.4 g/dL (3.5-5.0); Albumin Globulin Ratio 1.3 (1.0-2.8); Alkaline Phosphatase 82 U/L (38-126); Aspartate Aminotransferase 27 IU/L (14-36); BUN Creatinine Ratio 18.4 (6-22); Bilirubin Total 0.3 mg/dL (0.2-1.3); Blood Urea Nitrogen 18 mg/dL (7-17); Carbon Dioxide 28 mmol/L (22-32); Chloride 107 mmol/L (98-107); Estimated Glomerular Filt Rate > 60 mL/min (>60); Globulin 2.6 g/dL (1.7-4.1); Glucose 104 mg/dL (80-110); HEMOLYSIS < 15 (0-50); Sodium 138 mmol/L (137-145)
--- NOTE | 2024-11-17 13:58 | PC.NURSE ---
Pt states that she feels better than when she arrived. Denies any abd pain, rectal pain, sob, n/v at this time. States that she remains mildly dizzy. Skin pink, warm & dry. A&Ox4.
[2024-11-17] MEDS: NICOTINE 21 MG PATCH TOP (14:50)
--- NOTE | 2024-11-17 14:53 | PC.NURSE ---
This SATURATION DIVER 1:1 at doorway observed pt lying in bed pushing feet out toward RN. RN says don't kick me pt rests feet on bed rail.
--- NOTE | 2024-11-17 15:50 | PM.HP.1 ---
History of Present Illness History of Present Illness Date Patient Seen: 11/17/24 Chief complaint: Stage 4 Cancer/Rectal Bleeding Narrative: This is a 64-year-old female with a past medical history metastatic breast cancer on chemotherapy, prior CVA, hepatitis-C, recent aortic mechanical valve placed 04/2024 with post-operative afib on Coumadin, CAD s/p stent who presented after a large melenotic appearing stool this morning, followed by slightly maroon colored stool on the toilet paper afterwards. This was after having not had a bowel movement for about 6 days. She denies NSAID use. Patient states INR was elevated a few days ago (6.7 on 11/14) and she has been holding it since. She denied fever, chills, cough, shortness of breath, or dizziness. She denies any abdominal pain. In the emergency room, the patient was intermittently hypotensive, she received 1 U PRBC. Hemoglobin was noted to be 9.7 on laboratory evaluation, previously this was 13.2 in August of 2024. After transfusion it only improved to 10. INR was 1.9. The remainder of her chemistries were unremarkable and not significantly changed from her outpatient baseline. She was admitted for further observation and GI bleed. General surgery was consulted from the emergency room and recommended clear liquid diet for now, with NPO at midnight for EGD tomorrow. [facility] Medical History (Updated 11/17/24 @ 14:54 by Bennett Garcia MD) Malignant neoplasm of breast metastatic to bone Anticoagulation goal of INR 2.0 to 2.5 Cervical spondylosis Neuroforaminal stenosis of cervical spine Cholesteatoma Warthin's tumor Parotid mass Foot dermatitis Chronic left shoulder pain Adhesive capsulitis Rotator cuff tear Cutaneous candidiasis Breast pain Cervical cancer screening Skin cyst Substance abuse PTSD (post-traumatic stress disorder) History of bipolar disorder Stroke Carpal tunnel syndrome (~1995) Chicken pox (~1968) Vertigo Menopause (~1997) Kidney stones (~2014) Hemorrhoid Colon polyps Hypertension (~1989) History of breast cancer (~2005) Right shoulder pain (~2020) Anxiety with depression Heart murmur Chronic pain syndrome (09/24/15) Chronic hepatitis C without hepatic coma (09/24/15) Uncomplicated opioid dependence Chronic back pain Surgical History (Updated 09/12/24 @ 12:23 by Meet Correia LPN) Mechanical heart valve present Anesthesia History of back surgery (~2018) History of hemorrhoidectomy (~1989) H/O right wrist surgery (~1984) History of placement of ear tubes History of colonoscopy (~2020) History of coronary artery stent placement (~2019) Family History Mother Cancer Diabetes mellitus History of heart disease Brother Diabetes mellitus Hyperlipidemia Hypertension Pacemaker Sister Diabetes mellitus Hypertension Sister Hyperlipidemia Liver disease Autoimmune disease Grandfather Cancer Grandfather Alzheimer's disease Grandmother Alzheimer's disease Social History marital status: unmarried,single details: Pt. lives with her sister and nephew. household members: family lives independently: Yes occupational status: unemployed Smoking Status: Current every day smoker alcohol intake: former substance use type: marijuana Meds Home Medications and Allergies Home Medications Medication Instructions Recorded Confirmed Type aspirin 81 mg chewable tablet 81 mg PO DAILY 12/29/22 11/04/24 History abemaciclib 150 mg tablet 150 mg PO BID 10/07/24 11/04/24 History letrozole 2.5 mg tablet 2.5 mg PO DAILY 10/07/24 11/04/24 History Disabled Parking Permit #1 ea 10/08/24 11/04/24 Rx atorvastatin 80 mg tablet 80 mg PO BEDTIME #90 tabs 10/11/24 11/17/24 Rx bupropion HCl 150 mg 24 hr tablet, 150 mg PO QAM #90 tabs 10/11/24 11/17/24 Rx extended release duloxetine 20 mg capsule,delayed 20 mg PO BID #180 caps 10/11/24 11/17/24 Rx release gabapentin 300 mg capsule 300 mg PO TID for pain #180 caps 10/11/24 11/17/24 Rx losartan 50 mg tablet 50 mg PO BID #180 tabs 10/11/24 11/17/24 Rx mupirocin 2 % topical ointment 1 applic topical TID #22 grams 10/11/24 11/04/24 Rx nystatin 100,000 unit/mL oral 400,000 unit (4 mL) PO QID 14 days 10/11/24 11/04/24 Rx suspension #224 mL ondansetron HCl 4 mg tablet 4 mg PO Q6H PRN nausea and 10/11/24 11/04/24 Rx vomiting #20 tabs trazodone 100 mg tablet 200 mg (2 x 100 mg) PO ONCE PM for 10/11/24 11/04/24 Rx insomnia #180 tabs warfarin 2.5 mg tablet See Rx Instructions .Route 10/11/24 11/14/24 Rx .COMPLEX #180 tabs metoprolol tartrate 25 mg tablet 25 mg PO BID #90 tabs 10/16/24 11/17/24 Rx hydrocodone 10 mg-acetaminophen 1 tab PO Q6H PRN pain #120 tabs 11/04/24 11/04/24 Rx 325 mg tablet hydrocodone 10 mg-acetaminophen 1 tab PO Q6H PRN severe pain #120 11/04/24 11/04/24 Rx 325 mg tablet tabs hydromorphone 4 mg tablet 4 mg PO Q6H PRN pain #60 tabs 11/04/24 11/04/24 Rx (Dilaudid) Allergies Allergy/AdvReac Type Severity Reaction Status Date / Time aspartame Allergy Severe numbness Verified 11/04/24 11:28 in mouth & throat from nutrisweet codeine Allergy Severe HIVES Verified 11/04/24 11:28 ergotamine [From Ergostat] Allergy Unknown Verified 11/04/24 11:28 oxycodone Allergy Unknown tachycardia Verified 11/04/24 11:28 meloxicam AdvReac Severe palpitations/lips Verified 11/04/24 11:28 and fingers numb Review of Systems Review of Systems Narrative: All other systems reviewed with the patient and are negative unless otherwise stated. Exam Vital Signs (past 8 hours): - 11/17/24 11:17 11/17/24 11:28 11/17/24 11:28 Temperature 97.9 F Pulse Rate 67 62 Respiratory Rate 16 Blood Pressure 119/57 L 105/49 L Pulse Oximetry 100 Oxygen Delivery Method Room Air 11/17/24 11:30 11/17/24 12:00 11/17/24 12:06 Temperature Pulse Rate 61 57 L 59 L Respiratory Rate Blood Pressure Pulse Oximetry 97 97 93 Oxygen Delivery Method Room Air 11/17/24 12:07 11/17/24 12:16 11/17/24 12:16 Temperature Pulse Rate 57 L Respiratory Rate Blood Pressure 94/44 L 84/40 L Pulse Oximetry 98 Oxygen Delivery Method 11/17/24 12:18 11/17/24 12:18 11/17/24 12:21 Temperature Pulse Rate 62 Respiratory Rate Blood Pressure 86/41 L 94/42 L Pulse Oximetry 100 Oxygen Delivery Method 11/17/24 12:21 11/17/24 12:25 11/17/24 12:25 Temperature Pulse Rate 56 L 55 L Respiratory Rate 16 27 H Blood Pressure 87/48 L Pulse Oximetry 95 97 Oxygen Delivery Method 11/17/24 12:29 11/17/24 12:29 11/17/24 12:30 Temperature Pulse Rate 58 L 60 Respiratory Rate 18 25 H Blood Pressure 91/43 L Pulse Oximetry 94 100 Oxygen Delivery Method 11/17/24 12:31 11/17/24 12:31 11/17/24 12:35 Temperature Pulse Rate 55 L Respiratory Rate 27 H Blood Pressure 101/55 L 97/44 L Pulse Oximetry 87 L Oxygen Delivery Method 11/17/24 12:35 11/17/24 12:40 11/17/24 12:40 Temperature Pulse Rate 52 L 52 L Respiratory Rate 12 12 Blood Pressure 84/45 L Pulse Oximetry 96 99 Oxygen Delivery Method 11/17/24 12:45 11/17/24 12:45 11/17/24 12:48 Temperature Pulse Rate 54 L Respiratory Rate 25 H Blood Pressure 90/50 L 93/48 L Pulse Oximetry 99 Oxygen Delivery Method 11/17/24 12:48 11/17/24 13:00 11/17/24 13:00 Temperature 98 F Pulse Rate 55 L 58 L 58 L Respiratory Rate 20 16 17 Blood Pressure 115/53 L Pulse Oximetry 99 97 Oxygen Delivery Method 11/17/24 13:02 11/17/24 13:02 11/17/24 13:15 Temperature 97.8 F Pulse Rate 59 L 55 L Respiratory Rate 16 18 Blood Pressure 115/53 L 119/57 L Pulse Oximetry 97 Oxygen Delivery Method 11/17/24 13:19 11/17/24 13:19 11/17/24 13:20 Temperature Pulse Rate 57 L 55 L Respiratory Rate 20 20 Blood Pressure 99/48 L Pulse Oximetry 100 99 Oxygen Delivery Method 11/17/24 13:20 11/17/24 13:30 11/17/24 13:39 Temperature Pulse Rate 53 L Respiratory Rate 31 H Blood Pressure 119/57 L 119/58 L Pulse Oximetry 98 Oxygen Delivery Method Room Air 11/17/24 13:39 11/17/24 13:40 11/17/24 13:40 Temperature Pulse Rate 53 L 52 L Respiratory Rate 21 21 Blood Pressure 116/56 L Pulse Oximetry 98 99 Oxygen Delivery Method 11/17/24 13:45 11/17/24 13:45 11/17/24 13:50 Temperature Pulse Rate 51 L Respiratory Rate 25 H Blood Pressure 124/59 L 119/58 L Pulse Oximetry 96 Oxygen Delivery Method 11/17/24 13:50 11/17/24 13:55 11/17/24 13:55 Temperature Pulse Rate 52 L 51 L Respiratory Rate 20 21 Blood Pressure 125/61 Pulse Oximetry 97 97 Oxygen Delivery Method 11/17/24 14:00 11/17/24 14:00 11/17/24 14:05 Temperature Pulse Rate 52 L Respiratory Rate 18 Blood Pressure 125/59 L 127/60 Pulse Oximetry 98 Oxygen Delivery Method 11/17/24 14:05 11/17/24 14:10 11/17/24 14:10 Temperature Pulse Rate 51 L 51 L Respiratory Rate 23 20 Blood Pressure 133/56 L Pulse Oximetry 97 97 Oxygen Delivery Method 11/17/24 14:15 11/17/24 14:15 11/17/24 14:20 Temperature Pulse Rate 52 L Respiratory Rate 15 Blood Pressure 124/59 L 123/59 L Pulse Oximetry 98 Oxygen Delivery Method 11/17/24 14:20 11/17/24 14:25 11/17/24 14:25 Temperature Pulse Rate 51 L 49 L Respiratory Rate 15 14 Blood Pressure 111/55 L Pulse Oximetry 96 98 Oxygen Delivery Method 11/17/24 14:30 11/17/24 14:30 11/17/24 14:35 Temperature Pulse Rate 50 L Respiratory Rate 18 Blood Pressure 126/59 L 136/64 Pulse Oximetry 97 Oxygen Delivery Method 11/17/24 14:35 11/17/24 14:40 11/17/24 14:40 Temperature Pulse Rate 52 L 51 L Respiratory Rate 20 14 Blood Pressure 135/57 L Pulse Oximetry 99 99 Oxygen Delivery Method 11/17/24 14:45 11/17/24 14:45 11/17/24 14:53 Temperature Pulse Rate 58 L Respiratory Rate 22 Blood Pressure 121/56 L 145/65 H Pulse Oximetry 98 Oxygen Delivery Method 11/17/24 14:53 11/17/24 14:55 11/17/24 14:55 Temperature Pulse Rate 55 L 53 L Respiratory Rate 22 15 Blood Pressure 147/65 H Pulse Oximetry 99 99 Oxygen Delivery Method 11/17/24 15:00 11/17/24 15:00 11/17/24 15:05 Temperature Pulse Rate 56 L Respiratory Rate 17 Blood Pressure 148/65 H 138/67 Pulse Oximetry 98 Oxygen Delivery Method 11/17/24 15:05 11/17/24 15:10 11/17/24 15:10 Temperature Pulse Rate 57 L 57 L Respiratory Rate 16 15 Blood Pressure 143/65 H Pulse Oximetry 96 96 Oxygen Delivery Method 11/17/24 15:15 11/17/24 15:15 11/17/24 15:20 Temperature Pulse Rate 56 L 55 L Respiratory Rate 13 14 Blood Pressure 133/60 Pulse Oximetry 96 95 Oxygen Delivery Method 11/17/24 15:20 Temperature Pulse Rate Respiratory Rate Blood Pressure 131/62 Pulse Oximetry Oxygen Delivery Method Oxygen Delivery Method Room Air Narrative Exam Narrative: General:? Obese female, Patient is well developed and well nourished, in no distress at this time. Slightly pale. Flat affect. HEENT:? Normocephalic, atraumatic, extraocular muscles intact, oral pharynx is clear and mucous membranes are moist. Neck: supple and symmetric, trachea is midline, no cervical adenopathy. Negative for JVD Chest:? Normal AP diameter and contour without kyphoscoliosis, no tachypnea, equal chest rise bilaterally. Lungs:? CTA b/l no wheezing rhonchi or rales. Cardio:?RRR, 2/6 systolic murmur Abdomen: S NT ND. Musculoskeletal:? Muscle strength and tone are equal within normal limits, no deformity. Extremities: No edema or joint effusions. No cyanosis or clubbing. Skin:? Pale,? Warm to touch,dry and intact without rashes, ulcerations or petechiae.? Objective ECG Impression: Sinus bradycardia with a right bundle-branch block, no significant change compared to prior Labs 11/17/24 16:07 11/17/24 12:06 Labs: Laboratory Results - last 24 hr 11/17/24 12:06 WBC 3.3 L RBC 2.87 L Hgb 9.7 L Hct 28.3 L MCV 98.8 MCH 33.8 MCHC 34.2 RDW 16.6 H Plt Count 159 Neut % (Auto) 41.8 L Lymph % (Auto) 51.6 H [place] % (Auto) 4.0 Eos % (Auto) 1.9 L Baso % (Auto) 0.7 Neut # (Auto) 1400 L Lymph # (Auto) 1700 [place] # (Auto) 100 Eos # (Auto) 100 Baso # (Auto) 0 PT 20.9 H D INR 1.9 H APTT 48 H Sodium 138 Potassium 4.0 Chloride 107 Carbon Dioxide 28 BUN 18 H Creatinine 0.98 Estimated GFR > 60 BUN/Creatinine Ratio 18.4 Glucose 104 Calcium 9.0 Total Bilirubin 0.3 AST 27 ALT 18 Alkaline Phosphatase 82 Total Protein 6.0 L Albumin 3.4 L Globulin 2.6 Albumin/Globulin Ratio 1.3 Blood Type O Positive Antibody Screen Negative Crossmatch See Detail Assessment & Plan Assessment & Plan narrative: 1. Acute blood loss with anemia, POA, active with hypotension - s/p 1 U PRBC Hg 9.7 > 10. Continue to trend. Hypotension improved after tranfsusion. - reported guaiac positive in ER - Discussed with general surgeon, enedelia for CLD tonight. NPO @ [place] with probable EGD tomorrow. - Goal Hg >7. - will start pantoprazole 40 mg IV BID empirically. 2. GI bleeding, POA, active - see above in #1 3. History of paroxysmal AFib with mechanical valve - hold coumadin - INR daily, currently 1.9 and no coumadin for multiple days. will not give Vitamin K but consider if h/h continues to fall. 4. CAD, Chronic, active - patient is >6 months from stent placement. Hold asa. Continue home statin. 5. Metastatic breast cancer to bone, chronic, active - continue home dilaudid and pain medications. Gabapentin and SSRI. 6. HTN - will hold home beta jonny and losartan in setting of GI Bleed with hypotension Code: Full, surrogate is patient's spouse DVT: SCDs I have utilized all available immediate resources to obtain, update, or review the patient's current medications. Dispo: patient admitted under observation status currently. Likely discharge home once h/h stabilized, possibly in 1-2 days depending on above course. Additional history obtained via discussions with the ER provider and general surgeon. These discussions contributed to the creation of the above assessment and plan. I have reviewed patient's presenting documentation, labs, and imaging personally. Time-Based Coding :: [TOTAL MINUTES] spent with patient and on the chart (including review of chart, obtaining history, exam, reviewing outside data, placing orders, documenting exam and treatment plan, and counseling patient) on [DATE].
[2024-11-17 16:13] LABS: Hematocrit 29.4 % (36-46)
--- NOTE | 2024-11-17 16:27 | PC.NURSE ---
Family bringing home meds (chemo), pharmacist will consult and prepare for inpatient administration.
[2024-11-17] MEDS: ACETAMINOPHEN 325 MG TABLET 650 MG PO (17:23)
[2024-11-17] MEDS: HYDROMORPHONE 2 MG TABLET 4 MG PO (17:47)
[2024-11-17] MEDS: VERZENIO 150 MG 1 EACH PO (19:21)
[2024-11-17] MEDS: PANTOPRAZOLE 40 MG VIAL IV (20:38)
[2024-11-17] MEDS: SODIUM CHLORIDE 0.9% 500 ML 250 ML IV (21:00)
--- NOTE | 2024-11-17 22:36 | PC.NURSE ---
NOC: Upon start of shift VS, PCT Cristino notified this RN that pt BP was soft; rechecked and found that BP was 92/35 (map 51), see VS in EMR. Pt H/H upon admission to [facility]U 10.0/29.4 after 1 unit PRBCs in ED. Notified MD Vargas who provided verbal orders for 500mL NS bolus over 2 hrs (250mL/hr) and NS 100mL/hr continuous IVF after as well as stat CBC/BMP. Pt asymptomatic, denying bloody stool, dizziness, lightheadedness, or confusion. Stat H/H resulted 9.7/28.5, BP after bolus 98/30 (map 56). Informed MD Vargas who provided verbal orders for 500mL NS bolus over 3 hrs (167ml/hr). Started bolus per orders. CBC to be redrawn with scheduled labs at 0500. Soft BP possibly d/t 4mg IVP hydromorphine at ~1800. Daughter at bedside, call light within reach, bed low/locked, plan of care continues.
[2024-11-17 22:49] LABS: Hematocrit 28.5 % (36-46); Hemoglobin 9.7 g/dL (12.0-16.0); Mean Corpuscular Hemoglobin 32.4 PG (26-34); Mean Corpuscular Volume 95.5 fL (80-100); Platelet Count 134 X10^3/uL (150-400); Red Blood Cell Count 2.98 X10^6/uL (4.0-5.2); Red Cell Distribution Width 17.4 % (11.6-14.8)
[2024-11-17 23:01] LABS: Blood Urea Nitrogen 15 mg/dL (7-17); Calcium 8.6 mg/dL (8.4-10.2); Carbon Dioxide 28 mmol/L (22-32); Chloride 111 mmol/L (98-107); Estimated Glomerular Filt Rate > 60 mL/min (>60); Glucose 74 mg/dL (80-110); HEMOLYSIS < 15 (0-50); Potassium 3.5 mmol/L (3.4-5.1); Sodium 138 mmol/L (137-145)
[2024-11-18] VITALS (17 sets, daily range): BP systolic 96–166; BP diastolic 32–97; PULSE 40–81; RESP 11–20; TEMP 35.9–36.5; O2SAT 92–99; BMI 34.2
[2024-11-18] MEDS: SODIUM CHLORIDE 0.9% 500 ML 167 ML IV (00:15)
[2024-11-18] MEDS: SODIUM CHLORIDE 0.9% 1,000 ML 100 ML IV (02:22)
[2024-11-18] MEDS: HYDROMORPHONE 2 MG TABLET 4 MG PO (03:39)
[2024-11-18 06:17] LABS: Add Manual Diff / Slide Review NO; Basophils Absolute Auto 0 /uL (0-100); Basophils Percent Auto 0.9 % (0-2); Eosinophils Absolute Auto 100 /uL (0-450); Eosinophils Percent Auto 2.5 % (2-4); Hematocrit 30.6 % (36-46); Hemoglobin 10.3 g/dL (12.0-16.0); INR 1.6 (0.9-1.3); Lymphocytes Absolute Auto 1000 /uL (1100-4500); Lymphocytes Percent Auto 46.9 % (25-40); Mean Corpuscular HGB Conc 33.7 % (30-36); Mean Corpuscular Hemoglobin 32.7 PG (26-34); Monocytes Absolute Auto 100 /uL (0-900); Monocytes Percent Auto 4.9 % (3-14); Neutrophils Absolute Auto 1000 /uL (1500-7000); Neutrophils Percent Auto 44.8 % (50-75); Platelet Count 141 X10^3/uL (150-400); Prothrombin Time 17.6 SECONDS (9.4-12.5); Red Blood Cell Count 3.15 X10^6/uL (4.0-5.2); Red Cell Distribution Width 17.4 % (11.6-14.8); White Blood Cell Count 2.2 X10^3/uL (4.5-11.0)
[2024-11-18 06:21] LABS: BUN Creatinine Ratio 16.7 (6-22); Blood Urea Nitrogen 13 mg/dL (7-17); Calcium 8.7 mg/dL (8.4-10.2); Carbon Dioxide 24 mmol/L (22-32); Chloride 113 mmol/L (98-107); Estimated Glomerular Filt Rate > 60 mL/min (>60); Glucose 87 mg/dL (80-110); HEMOLYSIS < 15 (0-50); Magnesium 1.9 mg/dL (1.6-2.3); Potassium 3.9 mmol/L (3.4-5.1); Sodium 140 mmol/L (137-145)
[2024-11-18] MEDS: VERZENIO 150 MG 1 EACH PO (08:58)
[2024-11-18] MEDS: PANTOPRAZOLE 40 MG VIAL IV (08:58)
[2024-11-18] MEDS: HYDROMORPHONE 2 MG TABLET PO (08:58)
--- NOTE | 2024-11-18 09:29 | P.CONS_ITS ---
History of Present Illness Consult details Date Patient Seen: 11/18/24 Time Patient Seen: 09:29 Chief complaint: Stage 4 Cancer/Rectal Bleeding Reason for consult: Melena Narrative: This is a 64 year old woman with multiple co-morbidities including stage IV breast cancer, h/o PUD, HTN, CVA, hepatitis-C, recent aortic mechanical valve placed 04/2024 with post-operative afib on Coumadin, CAD s/p stent who presents with melena. Patient states that since she started taking her oral chemotherapy, she has had difficulty with her INR staying within range. Starting November 04, patient had INR of 6 and it has been up and down since then. Last INR prior to presenting to the ED was 6.5 on 11/14/24. Since admission, she denies any melena. She reports severe constipation with 2 BM every 12 days. She has to push hard for each bowel movement. Last colonoscopy was 2020 and she has history of hemorrhoids s/p hemorrhoidectomy. She is taking Miralax and Senna for constipation. Denies any abdominal pain. Had EGD at 13 years old for PUD. Upon arrival to the ER yesterday kenzie was intermittently hypotensive, she received 1 U PRBC. The hemoglobin was noted to be 9.7. Last hemoglobin was 13 in August 2024. After transfusion the hemoglobin improved to 10 and has remained stable. INR was 1.9. Meds Home Medications and Allergies Home Medications Medication Instructions Recorded Confirmed Type aspirin 81 mg chewable tablet 81 mg PO DAILY 12/29/22 11/17/24 History abemaciclib 150 mg tablet 150 mg PO BID 10/07/24 11/17/24 History letrozole 2.5 mg tablet 2.5 mg PO DAILY 10/07/24 11/17/24 History Disabled Parking Permit #1 ea 10/08/24 11/17/24 Rx atorvastatin 80 mg tablet 80 mg PO BEDTIME #90 tabs 10/11/24 11/17/24 Rx bupropion HCl 150 mg 24 hr tablet, 150 mg PO QAM #90 tabs 10/11/24 11/17/24 Rx extended release duloxetine 20 mg capsule,delayed 20 mg PO BID #180 caps 10/11/24 11/17/24 Rx release losartan 50 mg tablet 50 mg PO BID #180 tabs 10/11/24 11/17/24 Rx ondansetron HCl 4 mg tablet 4 mg PO Q6H PRN nausea and 10/11/24 11/17/24 Rx vomiting #20 tabs trazodone 100 mg tablet 200 mg (2 x 100 mg) PO ONCE PM for 10/11/24 11/17/24 Rx insomnia #180 tabs warfarin 2.5 mg tablet See Rx Instructions .Route 10/11/24 11/17/24 Rx .COMPLEX #180 tabs metoprolol tartrate 25 mg tablet 25 mg PO BID #90 tabs 10/16/24 11/17/24 Rx hydrocodone 10 mg-acetaminophen 1 tab PO Q6H PRN severe pain #120 11/04/24 11/17/24 Rx 325 mg tablet tabs hydromorphone 4 mg tablet 4 mg PO Q6H PRN pain #60 tabs 11/04/24 11/17/24 Rx (Dilaudid) gabapentin 300 mg capsule 300 mg PO TID PRN for pain 11/17/24 11/17/24 History Allergies Allergy/AdvReac Type Severity Reaction Status Date / Time aspartame Allergy Severe numbness Verified 11/18/24 09:41 in mouth & throat from nutrisweet codeine Allergy Severe HIVES Verified 11/18/24 09:41 ergotamine [From Ergostat] Allergy Unknown Migraine Verified 11/18/24 09:41 oxycodone Allergy Unknown tachycardia Verified 11/18/24 09:41 meloxicam AdvReac Severe palpitations/lips Verified 11/18/24 09:41 and fingers numb Review of Systems Constitutional Constitutional: Reports system reviewed and no additional complaints, except as documented, Reports body ache(s), Reports fatigue and Reports lethargy Eyes Eyes: Denies decreased night vision and Denies diplopia ENT Ears, Nose, Mouth, and Throat: Yes system reviewed and no additional complaints, except as documented, No dysphagia and No hearing loss Cardiovascular Cardiovascular: Denies chest pain, Denies chest pain at rest and Denies dyspnea on exertion Respiratory Respiratory: Denies chest congestion, Denies cough and Denies dyspnea on exertion Gastrointestinal Gastrointestinal: Reports melena, Reports constipation, Denies cramping and Denies dysphagia Genitourinary Genitourinary: Reports system reviewed and no additional complaints, except as documented Musculoskeletal Musculoskeletal: Reports system reviewed and no additional complaints, except as documented and Reports back pain Integumentary/Breasts Skin/Breast: Reports system reviewed and no additional complaints, except as documented Neurologic Neurologic: Reports system reviewed and no additional complaints, except as documented, Denies behavioral changes, Denies burning sensations and Denies paresthesias Psychiatric Psychiatric: Reports system reviewed and no additional complaints, except as documented and Denies behavioral changes Endocrine Endocrine: Reports system reviewed and no additional complaints, except as documented and Reports fatigue Hematologic/Lymphatic Hematologic/Lymphatic: Reports system reviewed and no additional complaints, except as documented Exam Vital Signs (past 8 hours): - 11/18/24 04:00 11/18/24 05:00 11/18/24 05:17 Temperature 97.2 F L Pulse Rate 53 L Respiratory Rate 17 Blood Pressure 111/44 L 127/54 L Pulse Oximetry 99 99 Oxygen Delivery Method Room Air Oxygen Flow Rate 0 0 11/18/24 08:07 Temperature 97.6 F Pulse Rate 65 Respiratory Rate 15 Blood Pressure 116/43 L Pulse Oximetry 92 Oxygen Delivery Method Oxygen Flow Rate Oxygen Delivery Method Room Air Oxygen Flow Rate 0 Const General: cooperative, healthy appearing, comfortable and well developed Nutritional Appearance: obese Orientation: alert, awake and oriented x3 HENMT Head: normal to inspection and normocephalic Eyes General: appearance normal, both eyes and all related structures Neck Neck: normal visual inspection and full ROM Chest Chest: normal inspection of the chest Resp Effort & Inspection: normal respiratory effort and able to speak in complete sentences Cardio Pulses: normal peripheral pulses GI Inspection: normal to inspection, no edema, non-distended and obesity Palpation: soft, No guarding and No tender Back/Spine/Pelvis Back: normal to inspection Skin General: no rashes or lesions noted Neuro General: patient alert, patient awake and patient oriented x3 Cognition: normal cognition Speech: speech normal Extrem General: normal to inspection Psych Appearance: grossly normal and well kempt Mental Status: mental status grossly normal Objective Imaging CT scan - abdomen: My impression: I have reviewed the CT Radiologist's impression: [address] [address] [address] Scan Report Signed with Vargas Patient: Prem Rios MR#: [id number] : 1960 Acct:[id number] Age/Sex: 64 / F Date of Service: 11/17/24 Loc: ED Accession Number: [id number] Procedure: CT angio abdomen pelvis Ordering Provider: Bennett Garcia MD ADDENDUMThis report includes an Addendum and supersedes previous reports for this exam. PROCEDURE: CT ANGIO ABDOMEN PELVIS INDICATIONS: GI bleed LLQ tender, hypotension TECHNIQUE: After the administration of intravenous contrast, 2.5 mm thick sections acquired from the diaphragm to the symphysis. 10 mm maximum-intensity projection (MIP) reformats were then acquired. For radiation dose reduction, the following was used: automated exposure control. COMPARISON: None. FINDINGS: Vessels: Atherosclerotic calcification without aortic aneurysm. SMA and celiac origins are widely patent. No dissection. OTHER: Lower Chest: No significant findings. Liver: No solid mass. Gallbladder: No radiopaque gallstones or wall thickening. Biliary ducts: No biliary dilation. Pancreas: No ductal dilation. Spleen: Size is within normal limits. Adrenal Glands: No adrenal nodules. Kidneys and Ureters: No hydronephrosis. No solid mass. No complex renal cystic lesion which requires follow up. Stomach and Bowel: Normal colonic caliber, without significant wall thickening. Peritoneum: No abnormal intraperitoneal fluid. No free air. Ventral Wall: No hernia. Abdominal Nodes: No retroperitoneal or mesenteric adenopathy by size criteria. Vessels: Atherosclerotic calcification without aortic aneurysm. SMA and celiac origins are widely patent. PELVIS: Pelvic Organs: Unremarkable. Bladder: Unremarkable. Pelvic Nodes: No enlarged lymph nodes. Miscellaneous: No inguinal hernias are seen. Bones: Diffuse osteoblastic metastatic disease. Instrumented lower lumbar spine discectomy and fusion. Degenerative disc disease and arthropathy. IMPRESSION: Aortic atherosclerotic calcification without aneurysm or dissection. Proximal SMA and celiac arteries are widely patent No acute CT findings in the abdomen and pelvis. Diffuse osteoblastic metastatic disease Approved by: Nigel Guardado M.D. on 11/17/2024 at 12:59 ADDENDUM: The study was further reviewed at the request of the referring provider. Within the gastric fundus, there are 2 hyperdensities each measuring less than 5 mm on pre and postcontrast image and , without significant change. Given the lack of contrast enhancement, this most likely reflects food debris Dictated by: Nigel Guardado M.D. on 11/17/2024 at 13:31 Approved by: Nigel Guardado M.D. on 11/17/2024 at 13:35 Labs 11/18/24 05:10 11/18/24 05:10 Labs: Laboratory Results - last 24 hr 11/17/24 11/17/24 11/17/24 12:06 16:07 22:35 WBC 3.3 L 3.0 L RBC 2.87 L 2.98 L Hgb 9.7 L 10.0 L 9.7 L Hct 28.3 L 29.4 L 28.5 L MCV 98.8 95.5 D MCH 33.8 32.4 MCHC 34.2 34.0 RDW 16.6 H 17.4 H Plt Count 159 134 L Neut % (Auto) 41.8 L Lymph % (Auto) 51.6 H [place] % (Auto) 4.0 Eos % (Auto) 1.9 L Baso % (Auto) 0.7 Neut # (Auto) 1400 L Lymph # (Auto) 1700 [place] # (Auto) 100 Eos # (Auto) 100 Baso # (Auto) 0 PT 20.9 H D INR 1.9 H APTT 48 H Sodium 138 138 Potassium 4.0 3.5 Chloride 107 111 H Carbon Dioxide 28 28 BUN 18 H 15 Creatinine 0.98 0.79 Estimated GFR > 60 > 60 BUN/Creatinine Ratio 18.4 19.0 Glucose 104 74 L Calcium 9.0 8.6 Magnesium Total Bilirubin 0.3 AST 27 ALT 18 Alkaline Phosphatase 82 Total Protein 6.0 L Albumin 3.4 L Globulin 2.6 Albumin/Globulin Ratio 1.3 Blood Type O Positive Antibody Screen Negative Crossmatch See Detail 11/18/24 05:10 WBC 2.2 L RBC 3.15 L Hgb 10.3 L Hct 30.6 L MCV 97.0 MCH 32.7 MCHC 33.7 RDW 17.4 H Plt Count 141 L Neut % (Auto) 44.8 L Lymph % (Auto) 46.9 H [place] % (Auto) 4.9 Eos % (Auto) 2.5 Baso % (Auto) 0.9 Neut # (Auto) 1000 L Lymph # (Auto) 1000 L [place] # (Auto) 100 Eos # (Auto) 100 Baso # (Auto) 0 PT 17.6 H INR 1.6 H APTT Sodium 140 Potassium 3.9 Chloride 113 H Carbon Dioxide 24 BUN 13 Creatinine 0.78 Estimated GFR > 60 BUN/Creatinine Ratio 16.7 Glucose 87 Calcium 8.7 Magnesium 1.9 Total Bilirubin AST ALT Alkaline Phosphatase Total Protein Albumin Globulin Albumin/Globulin Ratio Blood Type Antibody Screen Crossmatch [facility] Medical History (Updated 11/17/24 @ 14:54 by Bennett Garcia MD) Malignant neoplasm of breast metastatic to bone Anticoagulation goal of INR 2.0 to 2.5 Cervical spondylosis Neuroforaminal stenosis of cervical spine Cholesteatoma Warthin's tumor Parotid mass Foot dermatitis Chronic left shoulder pain Adhesive capsulitis Rotator cuff tear Cutaneous candidiasis Breast pain Cervical cancer screening Skin cyst Substance abuse PTSD (post-traumatic stress disorder) History of bipolar disorder Stroke Carpal tunnel syndrome (~1995) Chicken pox (~1968) Vertigo Menopause (~1997) Kidney stones (~2014) Hemorrhoid Colon polyps Hypertension (~1989) History of breast cancer (~2005) Right shoulder pain (~2020) Anxiety with depression Heart murmur Chronic pain syndrome (09/24/15) Chronic hepatitis C without hepatic coma (09/24/15) Uncomplicated opioid dependence Chronic back pain Surgical History (Updated 09/12/24 @ 12:23 by Meet Correia LPN) Mechanical heart valve present Anesthesia History of back surgery (~2018) History of hemorrhoidectomy (~1989) H/O right wrist surgery (~1984) History of placement of ear tubes History of colonoscopy (~2020) History of coronary artery stent placement (~2019) Family History Mother Cancer Diabetes mellitus History of heart disease Brother Diabetes mellitus Hyperlipidemia Hypertension Pacemaker Sister Diabetes mellitus Hypertension Sister Hyperlipidemia Liver disease Autoimmune disease Grandfather Cancer Grandfather Alzheimer's disease Grandmother Alzheimer's disease Social History marital status: unmarried,single details: Pt. lives with her sister and nephew. household members: family lives independently: Yes occupational status: unemployed Tobacco & Substance Use Smoking Status: Current every day smoker alcohol intake: former substance use type: marijuana Assessment & Plan Assessment and plan (1) Gastrointestinal hemorrhage: Qualifiers: GI bleed type/associated pathology: melena Qualified Code(s): K92.1 - Melena Status: Acute (2) Anticoagulated: Status: Acute (3) Malignant neoplasm of breast metastatic to bone: Status: Acute (4) Atrial fibrillation: Status: Acute (5) S/P AVR (aortic valve replacement): Status: Acute (6) Anticoagulation goal of INR 2 to 3: Status: Acute (7) Mechanical heart valve present: Status: Acute Assessment & Plan narrative: This is a 64 year old woman with a history of mechanical valve replacement/A fib on Coumadin and metastatic breast cancer who presents with melena. CT scan concerning for possible densities in the gastric fundus. - NPO, IVF, EGD Today to eval for PUD. ParQ was held and patient agrees to proceed with EGD. Will also perform ELIANE to eval for hemorrhoids - Resume diet post procedure - Plan for continuing anticoagulation after procedure due to mechanical valve - Serial H/Hs - Possible discharge later today vs colonoscopy. Will assess after EGD the need Time-Based Coding :: 50 minutes spent with patient and on the chart (including review of chart, obtaining history, exam, reviewing outside data, placing orders, documenting exam and treatment plan, and counseling patient) on 11/17/2024 PROFEE Charge Codes Inpatient or Observation consultation: [id number]
--- NOTE | 2024-11-18 10:27 | PM.OP.ENDO ---
Operative Date/Time/Diagnoses Date of procedure: 11/18/24 Time of procedure: 10:27 Pre-op diagnosis: Melena Post-op diagnosis: other (PUD) Procedure & Clinicians Study performed: 1. Esophagogastroduodenoscopy 2. Digital rectal exam Same procedure as scheduled: Yes Indications: This is a 64-year-old woman with a history of mechanical valve replacement/AFib and stage IV breast cancer who presented to the hospital with melena. She underwent CTA which demonstrated slight densities in the patient's cardia/fundus of the stomach. ParQ was held patient agreed to proceed with EGD and digital rectal exam Surgeon: Whitley Reyes Procedure Notes SCOAP/Timeout: 10:25 am Procedure in detail: The patient was brought to the endoscopy suite and placed in left lateral decubitus position. Her sedation was induced and the patient had a bite block inserted. A routine time-out was performed which confirmed the patient, procedure, no antibiotics were indicated and all team members were in agreement. The gastroscope was inserted into the oropharynx with the assistance of the patient's swallowing, the scope was advanced into the esophagus. Patient was noted to have mild bile reflux within the esophagus. Upon entering the stomach, patient's stomach was found to be empty. Upon retroflexion the patient was found to have a small 1 cm hiatal hernia. Irrigation was used to uncover all the bubbles within the stomach. Patient was found to have a gastric ulcer near the cardia of the stomach. This ulcer did not have any stigmata of bleeding. I advanced the scope past the pylorus with ease. Upon entering the bulb of the duodenal, the patient was found to have a small less than 6 mm duodenal ulcer. This was also non bleeding. No vessel was visualized. The scope was advanced to the 2 of the duodenal. The ampulla was noted to be normal. No additional ulcers were identified. The scope was withdrawn and pictures were taken throughout. The patient's gastroesophageal junction was noted to be at 35 cm. The patient's Z-line was noted to be at 34 cm. The scope was withdrawn with ease no evidence of additional esophageal abnormalities were identified. The larynx was quickly visualized no evidence of reflux was noted. The patient tolerated the procedure well. We then proceeded with the digital rectal exam. Using lubrication, the digital rectal exam was performed. The patient was noted to have severe external hemorrhoids as well as Internal small hemorrhoids. No bleeding was noted upon digital rectal exam. The patient tolerated this procedure well. The patient was awakened and taken to recovery in stable condition. Scope withdrawal time: 1 minute Sedation minutes: 7 Findings: duodenal ulcer, gastric ulcer and hiatal hernia (Small 1 cm hiatal hernia) Specimen(s): none sent Complications: none Impression: -peptic ulcer disease with gastric and duodenal ulcers identified. -patient is supratherapeutic Coumadin likely the source of the melena. Patient has hemorrhoids and this also could be a source of bleeding. -discharge later today after tolerance of regular diet. Recommend follow-up with patient's oncologist/PCP Post-procedure Recommendations: Colonscopy in 1 year and High fiber diet Plan for aftercare: Recommend colonoscopy in 1 year. If patient is discharged and returns with melena again. Would recommend colonoscopy. It appears that patient's melena is likely secondary to peptic ulcer disease. Follow up: as needed Disposition: PACU
[2024-11-18] MEDS: HYDROCODONE/ACET 10/325 TABLET 2 TAB PO (11:32)
--- NOTE | 2024-11-18 13:23 | PC.NURSE ---
Pt to be discharged. Contacted Pharmacy to return Pt's home meds to her. Gave home meds to daughter.
--- NOTE | 2024-11-18 13:25 | P.DS_ITS ---
History of Present Illness History of Present Illness Date Patient Seen: 11/18/24 Time Patient Seen: 13:26 Chief complaint: Stage 4 Cancer/Rectal Bleeding Narrative: This is a 64-year-old female with a past medical history metastatic breast cancer on chemotherapy, prior CVA, hepatitis-C, recent aortic mechanical valve placed 04/2024 with post-operative afib on Coumadin, CAD s/p stent who presented after a large melenotic appearing stool this morning, followed by slightly maroon colored stool on the toilet paper afterwards. This was after having not had a bowel movement for about 6 days. She denies NSAID use. Patient states INR was elevated a few days ago (6.7 on 11/14) and she has been holding it since. She denied fever, chills, cough, shortness of breath, or dizziness. She denies any abdominal pain. In the emergency room, the patient was intermittently hypotensive, she received 1 U PRBC. Hemoglobin was noted to be 9.7 on laboratory evaluation, previously this was 13.2 in August of 2024. After transfusion it only improved to 10. INR was 1.9. The remainder of her chemistries were unremarkable and not significantly changed from her outpatient baseline. She was admitted for further observation and GI bleed. General surgery was consulted from the emergency room and recommended clear liquid diet for now, with NPO at midnight for EGD tomorrow. Discharge Providers Provider Date of admission: 11/17/24 15:27 Discharge Date: 11/18/24 Primary care physician: Josef Zendejas MD Discharge provider: Alexi Obrien DO Summary Hospital Course Discharge Diagnosis: 1. Acute blood loss with anemia and hypotension, POA, improved 2. GI bleeding, POA, improved 3. History of paroxysmal AFib with mechanical valve on coumadin 4. CAD, Chronic, active 5. Metastatic breast cancer to bone, chronic, active 6. HTN, history of, active Hospital Course: This is a 64-year-old female with a past medical history of paroxysmal AFib, aortic mechanical valve on Coumadin, CAD, hypertension, recent diagnosis of metastatic breast cancer to her bones who presented after an episode of melena and maroon stool after a prolonged period of constipation. She was initially hypotensive and given 1 unit of packed red blood cells. Her H and H improved only slightly but her blood pressure improved and her H&H continued to trend up after admission. The following morning she underwent EGD with General surgery which showed multiple gastric and duodenal ulcers. She was discharged after that, tolerating a diet, on oral PPI twice a day. General surgery also recommended addition of lactulose as needed for constipation which was prescribed. She should continue on oral PPI twice a day followed by transition to daily after this. We discussed the risks and benefits of resuming Coumadin at the time of discharge, and patient elected to continue Coumadin at 2.5 mg daily which is half of her previous dose. Of note a couple of days prior to admission her INR was markedly elevated in the 6s. She had been holding Coumadin, and at the time of discharge her INR was 1.6. I asked her to resume Coumadin tomorrow, and she had already scheduled follow-up with the [facility] on Monday 11/20. Given soft blood pressures here I did recommend that the patient continue to hold her home losartan on discharge, and monitor her home blood pressure. If her blood pressure starts to increase she may resume her home losartan at that time. Time Spent with Patient Time spent: Greater than 30 minutes Exam Vital Signs (past 8 hours): - 11/18/24 07:35 11/18/24 08:07 11/18/24 09:45 Temperature 97.6 F 97.5 F L Pulse Rate 65 40 L Respiratory Rate 15 11 L Blood Pressure 116/43 L 124/70 Pulse Oximetry 92 92 99 Oxygen Delivery Method Room Air Room Air Oxygen Flow Rate 0 11/18/24 10:41 11/18/24 10:46 11/18/24 10:51 Temperature 97.2 F L Pulse Rate 81 74 71 Respiratory Rate 16 18 15 Blood Pressure 166/70 H 129/61 118/55 L Pulse Oximetry 98 98 93 Oxygen Delivery Method Nasal Cannula Nasal Cannula Room Air Oxygen Flow Rate 2 2 11/18/24 10:56 11/18/24 11:01 11/18/24 11:15 Temperature 97.3 F L 97.1 F L Pulse Rate 69 71 65 Respiratory Rate 20 16 12 Blood Pressure 126/63 125/89 130/97 H Pulse Oximetry 96 93 97 Oxygen Delivery Method Room Air Room Air Oxygen Flow Rate 0 11/18/24 11:21 11/18/24 11:45 Temperature 97.1 F L Pulse Rate 66 Respiratory Rate 14 Blood Pressure 118/46 L Pulse Oximetry 97 96 Oxygen Delivery Method Room Air Oxygen Flow Rate 0 0 Oxygen Delivery Method Room Air Oxygen Flow Rate 0 Const General: cooperative, healthy appearing, comfortable and well developed Nutritional Appearance: obese Orientation: alert, awake and oriented x3 HENMT Head: normal to inspection and normocephalic Eyes General: appearance normal, both eyes and all related structures Neck Neck: normal visual inspection and full ROM Chest Chest: normal inspection of the chest Resp Effort & Inspection: normal respiratory effort and able to speak in complete sentences Cardio Pulses: normal peripheral pulses GI Inspection: normal to inspection, no edema, non-distended and obesity Palpation: soft, No guarding and No tender Back/Spine/Pelvis Back: normal to inspection Skin General: no rashes or lesions noted Neuro General: patient alert, patient awake and patient oriented x3 Cognition: normal cognition Speech: speech normal Extrem General: normal to inspection Psych Appearance: grossly normal and well kempt Mental Status: mental status grossly normal Objective Labs 11/18/24 05:10 11/18/24 05:10 Labs: Laboratory Results - last 24 hr 11/17/24 11/17/24 11/17/24 12:06 16:07 22:35 WBC 3.0 L RBC 2.98 L Hgb 10.0 L 9.7 L Hct 29.4 L 28.5 L MCV 95.5 D MCH 32.4 MCHC 34.0 RDW 17.4 H Plt Count 134 L Neut % (Auto) Lymph % (Auto) [place] % (Auto) Eos % (Auto) Baso % (Auto) Neut # (Auto) Lymph # (Auto) [place] # (Auto) Eos # (Auto) Baso # (Auto) PT INR Sodium 138 Potassium 3.5 Chloride 111 H Carbon Dioxide 28 BUN 15 Creatinine 0.79 Estimated GFR > 60 BUN/Creatinine Ratio 19.0 Glucose 74 L Calcium 8.6 Magnesium Blood Type O Positive Antibody Screen Negative Crossmatch See Detail 11/18/24 05:10 WBC 2.2 L RBC 3.15 L Hgb 10.3 L Hct 30.6 L MCV 97.0 MCH 32.7 MCHC 33.7 RDW 17.4 H Plt Count 141 L Neut % (Auto) 44.8 L Lymph % (Auto) 46.9 H [place] % (Auto) 4.9 Eos % (Auto) 2.5 Baso % (Auto) 0.9 Neut # (Auto) 1000 L Lymph # (Auto) 1000 L [place] # (Auto) 100 Eos # (Auto) 100 Baso # (Auto) 0 PT 17.6 H INR 1.6 H Sodium 140 Potassium 3.9 Chloride 113 H Carbon Dioxide 24 BUN 13 Creatinine 0.78 Estimated GFR > 60 BUN/Creatinine Ratio 16.7 Glucose 87 Calcium 8.7 Magnesium 1.9 Blood Type Antibody Screen Crossmatch [facility] Medical History (Updated 11/17/24 @ 14:54 by Bennett Garcia MD) Malignant neoplasm of breast metastatic to bone Anticoagulation goal of INR 2.0 to 2.5 Cervical spondylosis Neuroforaminal stenosis of cervical spine Cholesteatoma Warthin's tumor Parotid mass Foot dermatitis Chronic left shoulder pain Adhesive capsulitis Rotator cuff tear Cutaneous candidiasis Breast pain Cervical cancer screening Skin cyst Substance abuse PTSD (post-traumatic stress disorder) History of bipolar disorder Stroke Carpal tunnel syndrome (~1995) Chicken pox (~1968) Vertigo Menopause (~1997) Kidney stones (~2014) Hemorrhoid Colon polyps Hypertension (~1989) History of breast cancer (~2005) Right shoulder pain (~2020) Anxiety with depression Heart murmur Chronic pain syndrome (09/24/15) Chronic hepatitis C without hepatic coma (09/24/15) Uncomplicated opioid dependence Chronic back pain Surgical History (Updated 09/12/24 @ 12:23 by Meet Correia LPN) Mechanical heart valve present Anesthesia History of back surgery (~2018) History of hemorrhoidectomy (~1989) H/O right wrist surgery (~1984) History of placement of ear tubes History of colonoscopy (~2020) History of coronary artery stent placement (~2019) Family History Mother Cancer Diabetes mellitus History of heart disease Brother Diabetes mellitus Hyperlipidemia Hypertension Pacemaker Sister Diabetes mellitus Hypertension Sister Hyperlipidemia Liver disease Autoimmune disease Grandfather Cancer Grandfather Alzheimer's disease Grandmother Alzheimer's disease Social History marital status: unmarried,single details: Pt. lives with her sister and nephew. household members: family lives independently: Yes occupational status: unemployed Smoking Status: Current every day smoker alcohol intake: former substance use type: marijuana Discharge Plan Discharge Plan Patient Disposition: Home Provider Discharge Comment: You were admitted to the hospital with GI bleeding, likely due to stomach ulcers seen on EGD today. Blood counts already improving. As discussed resume coumadin at 2.5 mg daily and follow up with coumadin clinic on Monday. Continue to check blood pressure at home, right now would not restart losartan at home but if BP is elevated at home you can restart. After 4 weeks recommend decrease to omeprazole or pantoprazole daily Discharge orders & Medications Prescriptions: New pantoprazole 40 mg tablet,delayed release (DR/EC) 40 mg PO DAILY 30 Days Qty: 60 0RF lactulose 10 gram/15 mL solution 10 g PO DAILY PRN (Reason: constipation) Qty: 946 2RF Continued (DME) Disabled Parking Permit See Rx Instructions .ROUTE .MEDSUPPLY Qty: 1 0RF Rx Instructions: I find this patient to be medically disabled and qualified for Disabled Parking as indicated and signed on the accompanying Disabled Parking Application for Individuals. atorvastatin 80 mg tablet 80 mg PO BEDTIME Qty: 90 2RF bupropion HCl 150 mg tablet extended release 24 hr 150 mg PO QAM Qty: 90 2RF duloxetine 20 mg capsule,delayed release(DR/EC) 20 mg PO BID Qty: 180 1RF ondansetron HCl 4 mg tablet 4 mg PO Q6H PRN (Reason: nausea and vomiting) Qty: 20 1RF trazodone 100 mg tablet 200 mg PO ONCE PM Qty: 180 3RF metoprolol tartrate 25 mg tablet 25 mg PO BID Qty: 90 2RF abemaciclib 150 mg tablet 150 mg PO BID letrozole 2.5 mg tablet 2.5 mg PO DAILY hydrocodone-acetaminophen 10-325 mg tablet 1 tab PO Q6H PRN (Reason: severe pain) Qty: 120 0RF Rx Instructions: May refill early due to delayed fill on last script and cancer pain hydromorphone [Dilaudid] 4 mg tablet 4 mg PO Q6H PRN (Reason: pain) Qty: 60 0RF gabapentin 300 mg capsule 300 mg PO TID PRN (Reason: for pain) aspirin 81 mg Tablet,Chewable 81 mg PO DAILY Changed warfarin 2.5 mg tablet 2.5 mg PO DAILY 30 Days Qty: 180 3RF Protocol: Dose Management Condition: Monday Dose/Route: Hold Instruction: No doses Condition: Monday Dose/Route: 0 mg Instruction: 0 tablets Condition: Monday Dose/Route: 0 mg Instruction: 0 tablets Condition: Monday Dose/Route: 0 mg Instruction: 0 tablets Condition: Dose/Route: Hold Instruction: No doses Condition: Monday Dose/Route: Hold Instruction: No doses Condition: Monday Dose/Route: Hold Instruction: No doses Protocol Text: Adjustment Start Date: 11/14/24 INR Value: 6.5 INR Date: 11/14/24 Recheck Date: 11/19/24 Discontinued losartan 50 mg tablet 50 mg PO BID Qty: 180 2RF Follow up/Referrals: Josef Zendejas MD [Primary Care Provider] - Diet/Activity/Treatments Diet: Diet as Tolerated and Regular Activity: No restrictions Visit Report/Discharge Packet Instructions: DI for Gastroesophageal Reflux Disease (GERD), DI for Gastritis, DI for Gastric Ulcer, DI for Hiatal Hernia, DI for Peptic Ulcer, Gastrointestinal Bleeding Stand Alone Forms: Patient Portal/API, Stroke Signs & Symptoms, EGD Result: [place] Surg Discharge Data Primary Care Provider: Josef Zendejas Attending Provider: Alexi Obrien Admbarby Date/Time: 11/17/24 15:27
--- NOTE | 2024-11-18 14:16 | PC.NURSE ---
Addendum entered by Renée Clifford R.N. 11/26/24 07:04: Late Entry: Pt IV Sodium Chloride 0.9% stopped at 1416. Original Note: Pt is dressed and ready for discharge home with family. IV has been removed. Went over d/c instructions with Pt and family. Discussed d/c meds, time of last dose, reviewed stroke education, encouraged fluid intake and getting up out of bed or chair slowly to prevent dizziness or falls. Discussed calling her doctor or coming to the ER if she has brght red blood in her stools. Pt denied further questions and was taken out via w/c by TELEVISION INSTALLER HELPER to POV with Family and all belongings.
--- NOTE | 2024-11-26 01:31 | PC.NURSE ---
11/18/24: 500mL NS bolus 167mL/hr per MD order started 0015; ended 0400.
== END 2024-11-18 14:21 | disposition home or self-care (01) ==
LOC: ED 14:54 → AC 15:27
PROVIDERS: Emergency Medicine; Hospitalist; Surgery; Admitting Provider Internal Medicine; Emergency Provider Emergency Medicine; Family Provider Family Medicine; PCP Family Medicine; Referring Provider Emergency Medicine; Visit Provider Internal Medicine
PROC: 0DJ08ZZ Inspection of Upper Intestinal Tract, Via Natural or Artificial Opening Endoscopic (ICD-10-PCS; CPT 45990; principal; 2024-11-18 10:00)
DX: K92.1 Melena (principal); K59.00 Constipation, unspecified; D62 Acute posthemorrhagic anemia; C50.919 Malignant neoplasm of unspecified site of unspecified female breast; C79.51 Secondary malignant neoplasm of bone; Z79.01 Long term (current) use of anticoagulants; I48.0 Paroxysmal atrial fibrillation; Z95.2 Presence of prosthetic heart valve; F17.210 Nicotine dependence, cigarettes, uncomplicated; I10 Essential (primary) hypertension; I25.10 Atherosclerotic heart disease of native coronary artery without angina pectoris; K25.9 Gastric ulcer, unspecified as acute or chronic, without hemorrhage or perforation; K44.9 Diaphragmatic hernia without obstruction or gangrene; K26.9 Duodenal ulcer, unspecified as acute or chronic, without hemorrhage or perforation
CPT/HCPCS: 45990; 43235; 36415; 36430; 74174; 80048; 80053; 82272; 83735; 85014; 85018; 85025; 85027; 85610; 85730; 86850; 86900; 86901; 93005; 96361; 96374; 96375; 99284; 99291; G0378; P9016; J2250; J2405; J2470; J2704; J3010; Q9967

== ENCOUNTER → 2024-12-02 10:43 | Outpatient (CLI) | payer OTHER, SELFPAY ==
[2024-11-17 16:43] VITALS: BMI 34.2
[2024-12-02 11:18] LABS: Add Manual Diff / Slide Review NO; Basophils Absolute Auto 0 /uL (0-100); Basophils Percent Auto 0.5 % (0-2); Eosinophils Absolute Auto 100 /uL (0-450); Eosinophils Percent Auto 1.5 % (2-4); Hematocrit 35.9 % (36-46); Hemoglobin 12.1 g/dL (12.0-16.0); Lymphocytes Absolute Auto 1600 /uL (1100-4500); Lymphocytes Percent Auto 39.4 % (25-40); Mean Corpuscular HGB Conc 33.8 % (30-36); Mean Corpuscular Hemoglobin 33.7 PG (26-34); Mean Corpuscular Volume 99.8 fL (80-100); Monocytes Absolute Auto 200 /uL (0-900); Monocytes Percent Auto 4.2 % (3-14); Neutrophils Absolute Auto 2200 /uL (1500-7000); Neutrophils Percent Auto 54.4 % (50-75); Platelet Count 237 X10^3/uL (150-400); Red Cell Distribution Width 20.2 % (11.6-14.8); White Blood Cell Count 4.1 X10^3/uL (4.5-11.0)
[2024-12-02 11:29] LABS: Alanine Aminotransferase 24 IU/L (<35); Albumin 4.1 g/dL (3.5-5.0); Albumin Globulin Ratio 1.5 (1.0-2.8); Alkaline Phosphatase 103 U/L (38-126); Aspartate Aminotransferase 29 IU/L (14-36); BUN Creatinine Ratio 13.6 (6-22); Bilirubin Total 0.3 mg/dL (0.2-1.3); Blood Urea Nitrogen 14 mg/dL (7-17); Calcium 9.9 mg/dL (8.4-10.2); Carbon Dioxide 28 mmol/L (22-32); Chloride 107 mmol/L (98-107); Estimated Glomerular Filt Rate > 60 mL/min (>60); Globulin 2.7 g/dL (1.7-4.1); Glucose 88 mg/dL (80-110); HEMOLYSIS < 15 (0-50); Potassium 4.1 mmol/L (3.4-5.1); Sodium 140 mmol/L (137-145); Total Protein 6.8 g/dL (6.3-8.2)
[2024-12-02 11:31] LABS: Anisocytosis 1+
[2024-12-02 12:01] LABS: Carcinoembryonic Antigen 5.3 ng/mL (0.1-3.0)
[2024-12-03 06:36] LABS: Cancer Antigen 27.29 99.1 U/mL (0.0-38.6)
[2024-12-03 07:12] LABS: CA 15-3 59.3 U/mL (0.0-25.0)
== END ==
LOC: LAB 10:47
PROVIDERS: Family Provider Family Medicine; PCP Family Medicine; Referring Provider Internal Medicine Hematology & Oncology; Visit Provider Internal Medicine Hematology & Oncology
DX: C50.911 Malignant neoplasm of unspecified site of right female breast (principal)
CPT/HCPCS: 36415; 80053; 82378; 85025; 86300

== ENCOUNTER → 2024-12-16 12:15 | Outpatient (CLI) | payer OTHER, SELFPAY ==
[2024-11-17 16:43] VITALS: BMI 34.2
[2024-12-16 12:56] LABS: INR 3.4 (0.9-1.3); Prothrombin Time 37.6 SECONDS (9.4-12.5)
[2024-12-17 07:40] LABS: Interpretation Negative (Negative)
== END ==
PROVIDERS: Family Provider Family Medicine; PCP Family Medicine; Referring Provider Family Medicine; Visit Provider Family Medicine
DX: K25.9 Gastric ulcer, unspecified as acute or chronic, without hemorrhage or perforation (principal); K26.9 Duodenal ulcer, unspecified as acute or chronic, without hemorrhage or perforation; Z95.2 Presence of prosthetic heart valve; Z51.81 Encounter for therapeutic drug level monitoring; I48.91 Unspecified atrial fibrillation; Z79.01 Long term (current) use of anticoagulants
CPT/HCPCS: 36415; 83013; 85610

== ENCOUNTER → 2025-01-08 12:59 | Outpatient (CLI) | payer OTHER, SELFPAY ==
[2024-11-17 16:43] VITALS: BMI 34.2
[2025-01-08 13:32] LABS: INR 1.7 (0.9-1.3); Prothrombin Time 18.5 SECONDS (9.4-12.5)
== END ==
PROVIDERS: Family Provider Family Medicine; PCP Family Medicine; Referring Provider Family Medicine; Visit Provider Family Medicine
DX: I48.91 Unspecified atrial fibrillation (principal); Z51.81 Encounter for therapeutic drug level monitoring; Z79.01 Long term (current) use of anticoagulants; Z95.2 Presence of prosthetic heart valve
CPT/HCPCS: 36415; 85610

== ENCOUNTER → 2025-03-24 11:36 | Outpatient (CLI) | payer OTHER, SELFPAY ==
[2025-02-06 08:44] VITALS: BMI 34.2
[2025-03-24 12:34] LABS: Prothrombin Time 62.2 SECONDS (9.4-12.5)
[2025-03-24 12:43] LABS: INR 5.7 (0.9-1.3)
== END ==
PROVIDERS: PCP Family Medicine; Referring Provider Family Medicine; Visit Provider Family Medicine
DX: I48.91 Unspecified atrial fibrillation (principal); Z95.2 Presence of prosthetic heart valve; Z51.81 Encounter for therapeutic drug level monitoring; Z79.01 Long term (current) use of anticoagulants
CPT/HCPCS: 36415; 85610

== ENCOUNTER → 2025-04-09 09:52 | Outpatient (CLI) | payer OTHER, SELFPAY ==
[2025-02-06 08:44] VITALS: BMI 34.2
[2025-04-09 11:00] LABS: INR 1.7 (0.9-1.3); Prothrombin Time 19.5 SECONDS (9.4-12.5)
== END ==
LOC: LAB 09:53
PROVIDERS: PCP Family Medicine; Referring Provider Family Medicine; Visit Provider Family Medicine
DX: Z51.81 Encounter for therapeutic drug level monitoring (principal); Z79.01 Long term (current) use of anticoagulants
CPT/HCPCS: 36415; 85610

== ENCOUNTER → 2025-05-23 10:45 | Outpatient (CLI) | payer OTHER, SELFPAY ==
[2025-02-06 08:44] VITALS: BMI 34.2
[2025-05-23 12:02] LABS: Prothrombin Time 55.8 SECONDS (9.4-12.5)
[2025-05-23 12:08] LABS: INR 5.1 (0.9-1.3)
== END ==
PROVIDERS: PCP Family Medicine; Referring Provider Family Medicine; Visit Provider Family Medicine
DX: Z51.81 Encounter for therapeutic drug level monitoring (principal); Z79.01 Long term (current) use of anticoagulants; Q23.0 Congenital stenosis of aortic valve; Q23.1 Congenital insufficiency of aortic valve; I48.91 Unspecified atrial fibrillation; Z95.2 Presence of prosthetic heart valve
CPT/HCPCS: 36415; 85610

== ENCOUNTER 2025-05-27 08:18 | Emergency (ER) | payer OTHER, SELFPAY ==
[2025-02-06 08:44] VITALS: BMI 34.2
[2025-05-27] VITALS (12 sets, daily range): BP systolic 135–156; BP diastolic 63–78; PULSE 48–67; RESP 10–33; TEMP 36.8; O2SAT 92–100; BMI 32.9
--- NOTE | 2025-05-27 08:31 | EKG_ITS ---
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
--- NOTE | 2025-05-27 08:33 | ED_ITS ---
HPI - GI Bleed General Chief complaint: GI Bleed Stated complaint: Terminal cancer, Rectal bleeding this morning Time Seen by Provider: 05/27/25 08:33 History of Present Illness HPI Narrative: Patient is a 64-year-old female with a past medical history of stage IV breast cancer, hypertension, aortic valve replacement on warfarin comes into the ED from home for evaluation of bright red blood per rectum she states that she noticed this yesterday. She does state that she had her INR checked on Monday which was elevated in the 5s therefore she held her warfarin and just started to retake it yesterday night. She states that she follows with Dr. Jalloh of [facility] states that she does take daily chemotherapy meds for her breast cancer. She does also mention some left-sided abdominal pain. Otherwise no other complaints or symptoms at this time. Related Data Home Medications ?Medication ?Instructions ?Recorded ?Confirmed aspirin 81 mg chewable tablet 81 mg PO DAILY 12/29/22 05/15/25 abemaciclib 150 mg tablet 150 mg PO BID 10/07/2405/15 letrozole 2.5 mg tablet 2.5 mg PO DAILY 10/07/24 Previous Rx's ?Medication ?Instructions ?Recorded Disabled Parking Permit #1 ea 10/08/24 lactulose 10 gram/15 mL oral 10 g (15 mL) PO DAILY PRN 11/18/24 solution constipation #946 mL atorvastatin 80 mg tablet 80 mg PO BEDTIME #90 tabs bupropion HCl 150 mg 24 hr tablet, 150 mg PO QAM #90 t abs 11/27/24 extended release duloxetine 20 mg capsule,delayed 20 mg PO BID #180 cap s 11/27/24 release pantoprazole 40 mg tablet,delayed 40 mg PO DAILY 30 da ys #90 tabs 11/27/24 release trazodone 100 mg tablet 200 mg (2 x 100 mg) PO ONCE PM for 11/27/24 insomnia #180 tabs gabapentin 300 mg capsule 300 mg PO TID PRN for pain # 180 01/03/25 caps warfarin 2.5 mg tablet See Rx Instructions .Route 0 01/23/25 .COMPLEX 90 days #180 tabs ondansetron HCl 4 mg tablet 4 mg PO Q6H PRN nausea and 02/06/25 vomiting #60 tabs triamcinolone acetonide 0.1 % 1 applic topical BID #30 grams 02/11/25 topical cream metoprolol tartrate 25 mg tablet 25 mg PO BID #90 tabs 05/05/25 hydrocodone 10 mg-acetaminophen 2 tab PO Q8H PRN pain #180 tabs 05/06/25 325 mg tablet hydrocodone 10 mg-acetaminophen 2 tab PO Q8H PRN pain #180 tabs 05/15/25 325 mg tablet hydrocodone 10 mg-acetaminophen 2 tab PO Q8H PRN sever e pain #180 05/15/25 325 mg tablet tabs hydromorphone 4 mg tablet 4 mg PO Q6H PRN pain #60 tab s 05/15/25 (Dilaudid) Allergies Allergy/AdvReac Type Severity Reaction Status Date / Time aspartame Allergy Severe numbness Verified 05/27/25 08:33 in mouth & throat from nutrisweet codeine Allergy Severe HIVES Verified 05/27/25 08:33 ergotamine (From Ergostat) Allergy Unknown Migraine Verified 05/27/25 08:33 oxycodone Allergy Unknown tachycardia Verified 05/27/25 08:33 meloxicam AdvReac Severe palpitations/lips Verified 05/27/25 08:33 and fingers numb Review of Systems Review of Systems Narrative: General: Denies fever, chills, weight loss HEENT: Denies headache, eye drainage, eye irritation, head trauma, sore throat, voice change Cardiovascular: Denies any chest pain, palpitations, tachycardia Respiratory: Denies any shortness of breath, cough, wheeze, stridor GI/: Positive left-sided abdominal pain, bright red blood per rectum, denies nausea, vomiting, diarrhea, melanotic stools, urinary frequency, urinary retention, dysuria, hematuria MSK: Denies any joint pain, muscle pains, swelling Skin: Denies any rashes, lesions, discoloration Neuro: Denies any headache, lightheadedness, dizziness, fainting, weakness Psych: Denies SI/HI Patient History Medical History (Updated 05/27/25 @ 12:10 by Alexi Landrum DO) Tobacco use Status post stroke (09/24/15) Fibromyalgia Tobacco abuse Status post cerebrovascular accident Malignant neoplasm of breast metastatic to bone Anticoagulation goal of INR 2.0 to 2.5 Cervical spondylosis Neuroforaminal stenosis of cervical spine Cholesteatoma Warthin's tumor Parotid mass Foot dermatitis Chronic left shoulder pain Adhesive capsulitis Rotator cuff tear Cutaneous candidiasis Breast pain Cervical cancer screening Skin cyst Substance abuse PTSD (post-traumatic stress disorder) History of bipolar disorder Stroke Carpal tunnel syndrome (~1995) Chicken pox (~1968) Vertigo Menopause (~1997) Kidney stones (~2014) Hemorrhoid Colon polyps Hypertension (~1989) History of breast cancer (~2005) Right shoulder pain (~2020) Anxiety with depression Heart murmur Chronic pain syndrome (09/24/15) Chronic hepatitis C without hepatic coma (09/24/15) Uncomplicated opioid dependence Chronic back pain Surgical History (Updated 09/12/24 @ 12:23 by Meet Correia LPN) Mechanical heart valve present Anesthesia History of back surgery (~2018) History of hemorrhoidectomy (~1989) H/O right wrist surgery (~1984) History of placement of ear tubes History of colonoscopy (~2020) History of coronary artery stent placement (~2019) Family History Mother Cancer Diabetes mellitus History of heart disease Brother Diabetes mellitus Hyperlipidemia Hypertension Pacemaker Sister Diabetes mellitus Hypertension Sister Hyperlipidemia Liver disease Autoimmune disease Grandfather Cancer Grandfather Alzheimer's disease Grandmother Alzheimer's disease Social History marital status: unmarried,single details: Pt. lives with her sister and nephew. household members: family lives independently: Yes occupational status: unemployed Smoking Status: Current every day smoker alcohol intake: former substance use type: marijuana tobacco type: cigarettes alcohol intake frequency: 0-2 drinks per day Exam Narrative Exam Narrative: General: Cooperative, well-developed, not in acute distress HEENT: Normocephalic, atraumatic, PERRLA, normal sclera, eyelids normal Neck: Active full range of motion, atraumatic Chest: Normal to inspection, negative crepitus, no overlying erythema ecchymosis Respiratory: Normal respiratory effort, not in acute respiratory distress, clear to auscultation bilaterally negative cough, wheeze, tachypnea, rhonchi, rales Cardiology: Regular rate rhythm negative gallop, murmur, rubs GI/: No tenderness to palpation, soft, non rigid, normal to inspection, exam: nurse diogo present as corn popper, patient Hemoccult negative, visible external hemorrhoid noted no active bleeding, no anal fissures otherwise grossly normal MSK: Full active range of motion in all 4 extremities, atraumatic, no tenderness to palpation of any bony prominences Skin: No rashes or lesions noted Neuro: Alert awake oriented x3, moves all 4 extremities spontaneously, cranial nerves intact, able to answer all questions appropriately follows commands appropriately Psych: Cooperative, negative suicidal or homicidal ideations Initial Vital Signs Initial Vital Signs: Vital Signs Pulse Rate 63 05/27/25 08:23 Pulse Oximetry 98 05/27/25 08:23 Course Orders Ordered: ED Orders 05/27/25 08:39 CT angio Abd/Pel GI Bleed Stat 05/27/25 09:30 Complete Blood Count AUTO DIFF Stat Comprehensive Metabolic Panel Stat Lactate (Lactic Acid) Stat Lipase Stat MAG [Magnesium] Stat PTT Partial Thromboplastin Drake Stat Prothrombin Time INR Stat Type and Screen Stat Ondansetron HCl (Ondansetron 4 Mg/2 Ml Inj) 4 mg IV NOW PRN PRN Reason: Nausea And Vomiting Last Admin: 05/27/25 09:42 Dose: 4 mg Documented By: Discontinued Medications Hydromorphone HCl (Hydromorphone Hcl 0.5 Mg/0.5 Ml Syringe) 0.5 mg IV NOW ONE Stop: 05/27/25 09:51 Last Admin: 05/27/25 10:02 Dose: 0.5 mg Documented By: Sodium Chloride (Normal Saline 0.9%) 1,000 mls @ 1,000 mls/hr IV BOLUS ONE Stop: 05/27/25 09:39 Last Admin: 05/27/25 09:42 Dose: 1,000 mls/hr Documented By: Ondansetron HCl (Ondansetron 4 Mg/2 Ml Inj) 4 mg IV NOW ONE Stop: 05/27/25 09:51 Last Admin: 05/27/25 10:14 Dose: Not Given Documented By: Pantoprazole Sodium (Pantoprazole 40 Mg Vial) 80 mg IV NOW ONE Stop: 05/27/25 08:40 Last Admin: 05/27/25 09:41 Dose: 80 mg Documented By: Vital Signs Vital signs: Vital Signs - 8 hr 05/27/25 08:23 05/27/25 08:25 05/27/25 08:25 Temperature Pulse Rate 63 66 Respiratory Rate Blood Pressure 156/68 H Pulse Oximetry 98 98 Oxygen Delivery Method 05/27/25 08:30 05/27/25 08:30 05/27/25 08:32 Temperature 98.2 F Pulse Rate 58 L 67 Respiratory Rate 13 17 Blood Pressure 155/65 H 156/68 H Pulse Oximetry 99 97 Oxygen Delivery Method Room Air 05/27/25 09:00 05/27/25 09:01 05/27/25 09:01 Temperature Pulse Rate 53 L 54 L Respiratory Rate 10 L 18 Blood Pressure 136/63 Pulse Oximetry 97 97 Oxygen Delivery Method 05/27/25 09:30 05/27/25 10:00 05/27/25 10:30 Temperature Pulse Rate 63 48 L 51 L Respiratory Rate 26 H 12 14 Blood Pressure Pulse Oximetry 99 100 99 Oxygen Delivery Method Room Air 05/27/25 11:00 Temperature Pulse Rate 52 L Respiratory Rate 20 Blood Pressure Pulse Oximetry 99 Oxygen Delivery Method Room Air MDM - GI Bleed Lab Data 05/27/25 09:30 05/27/25 09:30 Labs: Lab Results 05/27/25 Range/Units 09:30 WBC 3.0 L (4.5-11.0) X10^3/uL RBC 3.05 L (4.0-5.2) X10^6/uL Hgb 11.5 L (12.0-16.0) g/dL Hct 33.9 L (36-46) % MCV 111.2 H (80-100) fL MCH 37.8 H (26-34) PG MCHC 34.0 (30-36) % RDW 13.8 (11.6-14.8) % Plt Count 153 (150-400) X10^3/uL Neut % (Auto) 55.0 (50-75) % Lymph % (Auto) 36.4 (25-40) % [place] % (Auto) 5.6 (3-14) % Eos % (Auto) 2.2 (2-4) % Baso % (Auto) 0.8 (0-2) % Neut # (Auto) 1700 (9413-0996) /uL Lymph # (Auto) 1100 (7483-4076) /uL [place] # (Auto) 200 (0-900) /uL Eos # (Auto) 100 (0-450) /uL Baso # (Auto) 0 (0-100) /uL RBC Morphology See below Anisocytosis 1+ H Macrocytosis 1+ H PT 12.6 H D (9.4-12.5) SECONDS INR 1.1 (0.9-1.3) APTT 33 (25.1-36.5) SECONDS Sodium 138 (137-145) mmol/L Potassium 4.1 (3.4-5.1) mmol/L Chloride 113 H (98-107) mmol/L Carbon Dioxide 20 L (22-32) mmol/L BUN 11 (7-17) mg/dL Creatinine 0.76 (0.52-1.04) mg/dL Estimated GFR > 60 (>60) mL/min BUN/Creatinine Ratio 14.5 (6-22) Glucose 92 (70-99) mg/dL Lactate 1.1 (0.7-2.1) mmol/L Calcium 8.8 (8.4-10.2) mg/dL Magnesium 1.9 (1.6-2.3) mg/dL Total Bilirubin 0.6 (0.2-1.3) mg/dL AST 43 H (14-36) IU/L ALT 17 (<35) IU/L Alkaline Phosphatase 96 (38-126) U/L Total Protein 5.9 L (6.3-8.2) g/dL Albumin 3.2 L (3.5-5.0) g/dL Globulin 2.7 (1.7-4.1) g/dL Albumin/Globulin Ratio 1.2 (1.0-2.8) Lipase 73 (23-300) U/L Blood Type O Positive Antibody Screen Negative Urine Dip Bedside Urine Glucose Negative Bedside Urine Bilirubin - Negative Bedside Urine Ketone - Negative Urine Specific [place] 1.015 Bedside Urine Occult Blood + Bedside Urine pH 7.5 Bedside Urine Protein - Negative Bedside Urine Urobilinogen - Negative Bedside Urine Nitrite - Negative Bedside Urine Leukocytes + 70 Esterase ECG Data Interpretation: EKG interpreted ED physician sinus bradycardia 56 beats per minute, right bundle-branch block, QTC 447, normal axis no STEMI MDM Narrative Medical decision making narrative: Patient is a 64-year-old female with a past medical history of stage IV breast cancer, hypertension, aortic valve replacement on warfarin comes into the ED from home for evaluation of bright red blood per rectum she states that she noticed this yesterday. She does state that she had her INR checked on Monday which was elevated in the 5s therefore she held her warfarin and just started to retake it yesterday night. She states that she follows with Dr. Jalloh of [facility] states that she does take daily chemotherapy meds for her breast cancer. She does also mention some left-sided abdominal pain. Otherwise no other complaints or symptoms at this time. By my exam patient with hemorrhoids, she states that she knows about these, Hemoccult negative no active bleeding, patient's INR 1.1, she is now subtherapeutic however this makes sense given the fact that patient has been holding her warfarin secondary to supratherapeutic INR on Monday. She has restarted her warfarin. Patient's CT scan without any active bleed no further itching/worsening of her known metastatic disease. Symptoms more likely secondary to hemorrhoid and restarting her warfarin, her Burleigh score is 9, patient is safe for discharge home with outpatient follow up at this time. 1029: Was informed by nursing staff that patient just came back from CT scan, they were able to obtain the CT angio abdomen, however they stated that her IV infiltrated. We will place compression dressing. Discharge Plan Departure Patient Disposition: Home Clinical Impression: Hemorrhoid Activity Restrictions/Additional Instructions: Continue to take your warfarin as directed given the fact that you are subtherapeutic Please follow up with your primary care doctor and your oncology team Please read the discharge instructions sheet carefully and bring all papers to all doctor follow-up visits, as it may contain information that your doctor may want to see. Disease processes change and evolve, if your symptoms worsen or if you develop any new symptoms that are concerning to you please return for evaluation. Your evaluation today does not show any evidence of any life- threatening/serious illnesses requiring admission to the hospital or surgery. Please follow-up with your doctor for re-evaluation in approximately 1 day. Seek immediate medical attention for any worrisome symptoms. *If you do not have a primary care provider please contact the [facility] Resource line at [phone]. They will ask some questions about your medical history and help get you set up with a doctor in the community. Prescriptions: No Action (DME) Disabled Parking Permit See Rx Instructions .ROUTE .MEDSUPPLY Qty: 1 0RF Rx Instructions: I find this patient to be medically disabled and qualified for Disabled Parking as indicated and signed on the accompanying Disabled Parking Application for Individuals. pantoprazole 40 mg tablet,delayed release (DR/EC) 40 mg PO DAILY 30 Days Qty: 90 2RF duloxetine 20 mg capsule,delayed release(DR/EC) 20 mg PO BID Qty: 180 2RF trazodone 100 mg tablet 200 mg PO ONCE PM Qty: 180 3RF atorvastatin 80 mg tablet 80 mg PO BEDTIME Qty: 90 2RF bupropion HCl 150 mg tablet extended release 24 hr 150 mg PO QAM Qty: 90 2RF gabapentin 300 mg capsule 300 mg PO TID PRN (Reason: for pain) Qty: 180 11RF triamcinolone acetonide 0.1 % cream 1 applic topical BID Qty: 30 0RF Rx Instructions: Apply thin layer to rash as it comes up. Use for no longer than 2 weeks at a time. metoprolol tartrate 25 mg tablet 25 mg PO BID Qty: 90 2RF hydrocodone-acetaminophen 10-325 mg tablet 2 tab PO Q8H PRN (Reason: pain) Qty: 180 0RF Rx Instructions: Should be 180 tabs ondansetron HCl 4 mg tablet 4 mg PO Q6H PRN (Reason: nausea and vomiting) Qty: 60 2RF hydrocodone-acetaminophen 10-325 mg tablet 2 tab PO Q8H PRN (Reason: pain) Qty: 180 0RF hydrocodone-acetaminophen 10-325 mg tablet 2 tab PO Q8H PRN (Reason: severe pain) Qty: 180 0RF Rx Instructions: New dosage for cancer pain hydromorphone [Dilaudid] 4 mg tablet 4 mg PO Q6H PRN (Reason: pain) Qty: 60 0RF abemaciclib 150 mg tablet 150 mg PO BID letrozole 2.5 mg tablet 2.5 mg PO DAILY warfarin 2.5 mg tablet See Rx Instructions .ROUTE .COMPLEX 90 Days Qty: 180 3RF Protocol: Dose Management Condition: Monday Dose/Route: 2.5 mg Instruction: 1 x 2.5 mg tablet Condition: Monday Dose/Route: 5 mg Instruction: 2 x 2.5 mg tablets Condition: Monday Dose/Route: 2.5 mg Instruction: 1 x 2.5 mg tablet Condition: Monday Dose/Route: 5 mg Instruction: 2 x 2.5 mg tablets Condition: Dose/Route: 2.5 mg Instruction: 1 x 2.5 mg tablet Condition: Monday Dose/Route: Hold Instruction: No doses Condition: Monday Dose/Route: Hold Instruction: No doses Protocol Text: Adjustment Start Date: Monday05/23/25 INR Value: 5.1 INR Date: 05/23/25 Recheck Date: 05/30/25 Rx Instructions: Take 1 tablet (2.5 mg total) by mouth on /. Take 2 tablet (5mg total) by mouth all other days; or as directed. lactulose 10 gram/15 mL solution 10 g PO DAILY PRN (Reason: constipation) Qty: 946 2RF aspirin 81 mg Tablet,Chewable 81 mg PO DAILY Referrals: Josef Zendejas MD [Primary Care Provider, Family Practice] Stand Alone Forms: Patient Portal/API
--- NOTE | 2025-05-27 08:39 | DI.CT.S_ITS ---
PROCEDURE: CT ANGIO ABD/PEL GI BLEED INDICATIONS: lower GI bleed TECHNIQUE: After the administration of intravenous contrast, 2.5 mm sections acquired from the diaphragm to the iliac crests. 10 mm maximum intensity projection (MIP) coronal and sagittal reformats were then performed. For radiation dose reduction, the following was used: automated exposure control. COMPARISON: [facility], [place], PET NECK TO MID THIGH, 01/03/2025, 10:31. [facility], CT, CT ANGIO ABDOMEN PELVIS, 11/17/2024, 12:36. FINDINGS: Image quality: Diagnostic. Abdominal aorta: Dense atherosclerotic calcifications are noted throughout infrarenal abdominal aorta. No aortic aneurysm or dissection. Mesenteric arteries: Patent without hemodynamically significant stenosis. Renal arteries: Patent without hemodynamically significant stenosis. Lower chest: Unremarkable. ABDOMEN: Liver: No solid mass. Gallbladder: No radiopaque gallstones or wall thickening. Biliary ducts: No biliary dilation. Pancreas: No ductal dilation. Spleen: Size is within normal limits. Adrenal Glands: No adrenal nodules. Kidneys and Ureters: No hydronephrosis. No solid mass. No complex renal cystic lesion which requires follow up. Stomach and Bowel: Normal colonic caliber, without significant wall thickening. No area of abnormal contrast accumulation or active contrast extravasation to suggest active bleeding. Appendix is visualized and is within normal limits. Mild fecal stasis in the colon. Peritoneum: No abnormal intraperitoneal fluid. No free air. Ventral Wall: Small umbilical hernia containing fat only. Abdominal Nodes: No retroperitoneal or mesenteric adenopathy by size criteria. Vessels: Aorta, as above. Normal IVC. PELVIS: Pelvic Organs: Unremarkable. Bladder: Unremarkable. Pelvic Nodes: No enlarged lymph nodes. Miscellaneous: No inguinal hernias are seen. Bones: Extensive blastic bony metastasis throughout lower thoracic and lumbar spine vertebral bodies as well as bony pelvis is again seen. Postsurgical changes are noted in lower lumbar spine. No acute pathologic fracture. IMPRESSION: 1. No abdominal aortic aneurysm or dissection. No hemodynamically significant stenosis or aneurysm is seen in mesenteric arteries or renal arteries. 2. No area of active contrast extravasation or accumulation to suggest active bleeding. 3. No abnormal bowel wall thickening. No abscess collection. No free fluid or free air. Normal appendix. 4. Extensive bony metastases unchanged from prior studies. Dictated by: Darren Harrison M.D. on 05/27/2025 at 11:56 Approved by: Darren Harrison M.D. on 05/27/2025 at 12:04
[2025-05-27] MEDS: PANTOPRAZOLE 40 MG VIAL 80 MG IV (09:41)
[2025-05-27] MEDS: SODIUM CHLORIDE 0.9% 1,000 ML 1000 ML IV (09:42)
[2025-05-27] MEDS: ONDANSETRON 4 MG/2 ML INJ IV (09:42)
[2025-05-27 09:46] LABS: Add Manual Diff / Slide Review NO; Hematocrit 33.9 % (36-46); Hemoglobin 11.5 g/dL (12.0-16.0); Lymphocytes Absolute Auto 1100 /uL (1100-4500); Mean Corpuscular HGB Conc 34.0 % (30-36); Mean Corpuscular Hemoglobin 37.8 PG (26-34); Mean Corpuscular Volume 111.2 fL (80-100); Platelet Count 153 X10^3/uL (150-400)
[2025-05-27 09:55] LABS: INR 1.1 (0.9-1.3); Prothrombin Time 12.6 SECONDS (9.4-12.5)
[2025-05-27 09:58] LABS: PTT Partial Thromboplastin Tim 33 SECONDS (25.1-36.5)
[2025-05-27 10:04] LABS: Alanine Aminotransferase 17 IU/L (<35); Albumin 3.2 g/dL (3.5-5.0); Albumin Globulin Ratio 1.2 (1.0-2.8); Alkaline Phosphatase 96 U/L (38-126); Anisocytosis 1+; Blood Urea Nitrogen 11 mg/dL (7-17); Calcium 8.8 mg/dL (8.4-10.2); Carbon Dioxide 20 mmol/L (22-32); Chloride 113 mmol/L (98-107); Estimated Glomerular Filt Rate > 60 mL/min (>60); Globulin 2.7 g/dL (1.7-4.1); Glucose 92 mg/dL (70-99); Lactate (Lactic Acid) 1.1 mmol/L (0.7-2.1); Macrocytosis 1+; Potassium 4.1 mmol/L (3.4-5.1); Sodium 138 mmol/L (137-145); Total Protein 5.9 g/dL (6.3-8.2)
[2025-05-27 10:05] LABS: HEMOLYSIS 65 (0-50)
[2025-05-27 10:10] LABS: Lipase 73 U/L (23-300); Magnesium 1.9 mg/dL (1.6-2.3)
--- NOTE | 2025-05-27 10:25 | PC.NURSE ---
Returned from CT scan. IV infiltrated. Wrapped pt's arm and elevated. Will continue to monitor.
--- NOTE | 2025-05-27 10:29 | PC.NURSE ---
Dr Landrum notified of IV infiltration.
== END 2025-05-27 12:28 | disposition home or self-care (01) ==
PROVIDERS: Emergency Provider Student in an Organized Health Care Education/Training Program; PCP Family Medicine
DX: K64.9 Unspecified hemorrhoids (principal); R10.9 Unspecified abdominal pain; C50.919 Malignant neoplasm of unspecified site of unspecified female breast; I10 Essential (primary) hypertension; Z95.2 Presence of prosthetic heart valve; Z79.01 Long term (current) use of anticoagulants
CPT/HCPCS: 36415; 74174; 80053; 81003; 83605; 83690; 83735; 85025; 85610; 85730; 86850; 86900; 86901; 93005; 96361; 96374; 96375; 99284; J1171; J2405; J2470; Q9967

== ENCOUNTER → 2025-08-08 10:23 | Outpatient (CLI) | payer OTHER, SELFPAY ==
[2025-02-06 08:44] VITALS: BMI 34.2
[2025-08-08 11:08] LABS: Prothrombin Time 103.2 SECONDS (9.4-12.5)
[2025-08-08 11:11] LABS: INR 9.7 (0.9-1.3)
== END ==
PROVIDERS: Family Medicine; PCP Family Medicine; Referring Provider Family Medicine; Visit Provider Family Medicine
DX: I48.91 Unspecified atrial fibrillation (principal); Z79.01 Long term (current) use of anticoagulants; Z51.81 Encounter for therapeutic drug level monitoring; Z95.2 Presence of prosthetic heart valve; I69.30 Unspecified sequelae of cerebral infarction
CPT/HCPCS: 36415; 85610

== ENCOUNTER → 2025-08-13 10:25 | Outpatient (CLI) | payer OTHER, SELFPAY ==
[2025-02-06 08:44] VITALS: BMI 34.2
--- NOTE | 2025-08-13 10:27 | DI.MRI.S_ITS ---
PROCEDURE: MR CERVICAL SPINE WO CON INDICATIONS: disc degeneration, cervical stenosis. TECHNIQUE: Noncontrast sagittal T1 spin echo and T2 fast spin echo, sagittal STIR, foraminal oblique sagittal T2 fast spin echo, and axial gradient echo or T2 fast spin echo through the cervical spine. COMPARISON: CR, XR CERVICAL SPINE 4V OR 5V, 02/23/2023, 9:18. [facility], MR, MR CERVICAL SPINE WO CON, 04/15/2023, 13:44. FINDINGS: Image quality: Excellent. Alignment and Curvature: There is trace, 2-3 millimeters of C2-C3 , C3-C4 and C7-T1 anterolisthesis. Bone Marrow: Mild Modic type 2 reactive endplate changes adjacent to the C4-C5, C5-C6 and C6-C7 discs. Spinal Cord: Visualized spinal cord has normal size and signal. No cerebellar tonsillar herniation. Paraspinous Soft Tissues: No paravertebral masses. Prevertebral soft tissues are normal in thickness. C2-C3: Loss of disc signal. Mild, diffuse disc bulge. Mild left facet hypertrophy. No central stenosis. Mild left neural foraminal narrowing. No neural compression. C3-C4: Loss of disc signal and slight loss of disc height. Moderate, diffuse disc bulge. Mild bilateral facet and uncovertebral joint hypertrophy. Mild narrowing of the central canal. Moderate right and mild left neural foraminal narrowing. No neural compression. C4-C5: Loss of disc signal and height. Moderate, diffuse disc bulge. Mild bilateral facet and moderate bilateral uncovertebral joint hypertrophy. Mild to moderate narrowing of the central canal. Severe bilateral neural foraminal narrowing with compression of the C5 nerve roots. C5-C6: Loss of disc signal and height. Moderate, diffuse disc bulge. Mild bilateral facet hypertrophy. Mild right and moderate left uncovertebral joint hypertrophy. Mild to moderate narrowing of the central canal. Severe left neural foraminal narrowing with compression of the left C6 nerve root. C6-C7: Loss of disc signal and height. Moderate, diffuse disc bulge. Mild bilateral facet hypertrophy. Moderate bilateral uncovertebral joint hypertrophy. Mild to moderate narrowing of the central canal. Severe bilateral neural foraminal narrowing with compression of the C7 nerve roots. C7-T1: Loss of disc signal and height. Moderate, diffuse disc bulge. Mild bilateral facet hypertrophy. Mild narrowing of the central canal. Mild right and moderate left neural foraminal narrowing. No neural compression. IMPRESSION: Multilevel degenerative disc disease. Multilevel facet and uncovertebral arthropathy. No severe central canal stenosis. Severe bilateral C4-C5, left C5-C6 and bilateral C6-C7 neural foraminal stenosis with compression of the bilateral C5, left C6 and bilateral C7 nerve roots. Dictated by: Renay Carrillo MD, PhD on 08/13/2025 at 11:16 Approved by: Renay Carrillo MD, PhD on 08/13/2025 at 11:38
== END ==
LOC: MRI 10:26
PROVIDERS: PCP Family Medicine; Referring Provider Family Medicine; Visit Provider Family Medicine
DX: M47.812 Spondylosis without myelopathy or radiculopathy, cervical region (principal); M47.813 Spondylosis without myelopathy or radiculopathy, cervicothoracic region; M48.02 Spinal stenosis, cervical region; M48.03 Spinal stenosis, cervicothoracic region; M50.31 Other cervical disc degeneration, high cervical region; M50.33 Other cervical disc degeneration, cervicothoracic region; G89.4 Chronic pain syndrome
CPT/HCPCS: 72141

== ENCOUNTER → 2025-08-24 09:14 | Outpatient (CLI) | payer OTHER, SELFPAY ==
[2025-02-06 08:44] VITALS: BMI 34.2
--- NOTE | 2025-08-24 09:16 | DI.MRI.S_ITS ---
PROCEDURE: MR HEAD/BRAIN WO/W CON INDICATIONS: Breast cancer metastasized to multiples sites; diz TECHNIQUE: Noncontrast axial T1 spin echo, axial T2 fast spin echo, sagittal and axial FLAIR, coronal T2 fast spin echo, axial gradient echo, axial diffusion and ADC through the brain. After the administration of contrast, axial and coronal and sagittal 3D VIBE or T1 spin echo with fat saturation through the brain. COMPARISON: CT, CT HEAD/BRAIN WO CON, 05/03/2021, 10:44. [facility], [place], PET NECK TO MID THIGH, 07/25/2025, 10:16. FINDINGS: Image quality: Excellent. CSF Spaces: Basal cisterns are patent. No extra-axial fluid collections. Ventricles are normal in size and shape. Brain: No midline shift. No intracranial bleeds or masses. No abnormal intracranial enhancement. The brainstem appears normal. Diffusion-weighted images demonstrate no acute infarct. No chronic ischemic insults. Normal intravascular flow voids are present. Periventricular and subcortical white matter hyperintensities are present most suggestive of chronic microvascular ischemia. Skull and face: Calvarial marrow is normal in signal. Orbits appear normal. Sinuses: Sinuses demonstrate minimal mucosal thickening. Mild fluid is present in the right mastoid air cells. Recommend correlation to potential mastoiditis. IMPRESSION: No evidence of metastatic disease. Chronic microvascular ischemic change. Dictated by: Malina Kelley M.D. on 08/25/2025 at 14:23 Approved by: Malina Kelley M.D. on 08/25/2025 at 14:26
== END ==
LOC: MRI 09:15
PROVIDERS: PCP Family Medicine; Referring Provider Family Medicine
DX: C50.911 Malignant neoplasm of unspecified site of right female breast (principal); R42 Dizziness and giddiness
CPT/HCPCS: 70553; A9579